=== PATIENT | female | born 1960 | race African-American/Black ===

== ENCOUNTER 2018-03-26 13:50 | Inpatient (IN) ==
[2018-03-30 10:28] VITALS: BP 158/78
== END 2018-03-30 10:40 | disposition home or self-care (01) | DRG 690 ==
LOC: N.ED 13:50 → N.EDINP 16:21 → SUATTDRO 16:21 → N.EDINP 18:25 → N.5E 18:42
PROVIDERS: ADMIT Internal Medicine; ATTEND Internal Medicine Nephrology

== ENCOUNTER 2020-06-13 10:14 | Observation (INO) ==
[2020-06-13 10:51] LABS: Basophils % 0.3 % (0.0-0.8); Eosinophils # 0.1 10*3/uL (0.0-0.87); Eosinophils % 1.3 % (0.00-10.9); Hematocrit 30.4 VOL% (35.7-47.0); Hemoglobin 9.3 GM/DL (12.0-16.0); Immature Granulocytes % 0.5 %; Immature Granulocytes Absolute 0.05 #; Lymphocytes # 1.4 10*3/uL (1.4-4.0); Lymphocytes % 15.2 % (21.3-54.2); Mean Corpuscular HGB Conc 30.6 GM/DL (32-36); Mean Corpuscular Volume 91.6 FL (87-102); Mean Platelet Volume 9.6 FL (9.6-12.0); Neutrophils % 77.7 % (38.7-73.9); Platelet Count 300 T/CUMM (130-400); Red Blood Count 3.32 MC/CUMM (3.8-5.5); Red Cell Distribution Width 13.7 % (9.3-17.3); White Blood Count 9.5 T/CUMM (4-12)
[2020-06-13 11:12] LABS: Albumin 3.2 G/DL (3.4-5.0); Bilirubin,Total 1.1 MG/DL (0.2-1.0); Calcium 9.3 MG/DL (8.5-10.1); Osmolality,Calculated 296.4 MOS/KG (273-304); Total Protein 7.2 G/DL (6.4-8.3)
[2020-06-13] MEDS ORDERED: SODIUM CHLORIDE 0.9% 1,000 ML IV STA (11:15)
[2020-06-13 12:06] LABS: Amorphous Crystals,Urine Few /HPF (Few); Bacteria,Urine Many /HPF (Few); Bilirubin,Urine Negative (Negative); Blood, Urine Negative (Negative); Glucose,Urine (UA) Negative (Negative); Ketones,Urine Negative (Negative); Nitrite,Urine Negative (Negative); Protein,Urine 30 MG/DL; RBC,Urine 2 /HPF (0-4); Squamous Epithelial Cell,Urine Occasional /HPF (0-10); Urine Appearance Slightly Hazy (Clear); Urine Color Yellow (Yellow); Urine Specific Gravity 1.011 (1.001-1.035); Urine Urobilinogen < 2.0 EU/DL (0.2-1.0); WBC,Urine 33 /HPF (0-6)
[2020-06-13 12:14] LABS: PT Patient Result 10.7 SECS (9.8-11.9); Partial Thromboplastin Time 28.8 SECS (23.9-33.8)
[2020-06-13] MEDS ORDERED: DEXTROSE 50% 25 GM/50 ML VIAL IV PRN (14:27)
[2020-06-13] MEDS ORDERED: GLUCAGON 1 MG VIAL IM PRN (14:27)
[2020-06-13] MEDS ORDERED: ONDANSETRON 4 MG/2 ML VIAL IV PRN (14:27)
[2020-06-13] MEDS ORDERED: SODIUM CHLORIDE 0.9% 1,000 ML IV SCH (14:30)
[2020-06-13] MEDS ORDERED: cefTRIAXone 1,000 MG in SYRINGE 1 EACH IV SCH (16:00)
[2020-06-13] MEDS: INSULIN LISPRO 100 UNIT/ML SUBCUT SCH ×2 (16:54→22:29)
[2020-06-13] MEDS ORDERED: cloNIDine 0.1 MG TABLET PO PRN (21:00)
[2020-06-13] MEDS ORDERED: BETHANECHOL 25 MG TABLET PO SCH (21:00)
[2020-06-13] MEDS: BIMATOPROST 0.01% OPH SOLN 2.5 ML BOTTLE LEFT EYE SCH (22:10)
[2020-06-13] MEDS: TIMOLOL 0.25% OPH SOLN 5 ML BOTTLE RIGHT EYE SCH (22:10)
[2020-06-13] MEDS: LATANOPROST 0.005% OPH SOLN 2.5 ML BOTTLE RIGHT EYE SCH (22:11)
[2020-06-13] MEDS: cefTRIAXone 1,000 MG in SYRINGE 1 EACH IV SCH (22:22)
[2020-06-13] MEDS: MEMANTINE 10 MG TABLET PO SCH (22:28)
[2020-06-13] MEDS: AMITRIPTYLINE 50 MG TABLET PO SCH (22:28)
[2020-06-13] MEDS: ASPIRIN EC 81 MG TABLET PO SCH (22:28)
[2020-06-13] MEDS: carvediloL 6.25 MG TABLET PO SCH (22:28)
[2020-06-13] MEDS: DIVALPROEX 250 MG TABLET PO SCH (22:28)
[2020-06-13] MEDS: ENOXAPARIN 30 MG/0.3 ML SYRINGE SUBCUT SCH (22:29)
[2020-06-13] MEDS ORDERED: diphenhydrAMINE CAP 25 MG CAPSULE PO PRN (23:00)
[2020-06-14] MEDS: ACETAMINOPHEN 325 MG TABLET PO PRN (00:25)
[2020-06-14 06:55] LABS: Basophils % 0.4 % (0.0-0.8); Eosinophils # 0.1 10*3/uL (0.0-0.87); Hematocrit 26.3 VOL% (35.7-47.0); Hemoglobin 8.1 GM/DL (12.0-16.0); Immature Granulocytes % 0.4 %; Immature Granulocytes Absolute 0.03 #; Lymphocytes # 2.1 10*3/uL (1.4-4.0); Lymphocytes % 29.4 % (21.3-54.2); Mean Corpuscular HGB Conc 30.8 GM/DL (32-36); Mean Corpuscular Volume 90.1 FL (87-102); Mean Platelet Volume 9.8 FL (9.6-12.0); Monocytes % 6.7 % (1.7-12.7); Neutrophils % 61.1 % (38.7-73.9); Platelet Count 269 T/CUMM (130-400); Red Blood Count 2.92 MC/CUMM (3.8-5.5); Red Cell Distribution Width 13.7 % (9.3-17.3)
[2020-06-14 07:22] LABS: Albumin 2.8 G/DL (3.4-5.0); Bilirubin,Total 1.2 MG/DL (0.2-1.0); Osmolality,Calculated 292.8 MOS/KG (273-304); Risk Ratio 2.92; Thyroid Stimulating Hormone 4.4 uIU/ml (0.358-3.74); Total Protein 6.3 G/DL (6.4-8.3)
[2020-06-14] MEDS: FUROSEMIDE 20 MG TABLET PO SCH (08:54)
[2020-06-14] MEDS: AMITRIPTYLINE 50 MG TABLET PO SCH ×2 (08:54→22:01)
[2020-06-14] MEDS: MEMANTINE 10 MG TABLET PO SCH ×2 (08:54→22:01)
[2020-06-14] MEDS: PANTOPRAZOLE 40 MG TABLET PO SCH (08:54)
[2020-06-14] MEDS: DIVALPROEX 250 MG TABLET PO SCH ×2 (08:54→22:01)
[2020-06-14] MEDS: OLMESARTAN 20 MG TABLET PO SCH (08:54)
[2020-06-14] MEDS: amLODIPine 10 MG TABLET PO SCH (08:54)
[2020-06-14] MEDS: INSULIN LISPRO 100 UNIT/ML SUBCUT SCH ×4 (08:55→21:17)
[2020-06-14] MEDS: carvediloL 6.25 MG TABLET PO SCH ×2 (08:55→22:01)
[2020-06-14] MEDS: CITALOPRAM 20 MG TABLET PO SCH (08:55)
[2020-06-14] MEDS ORDERED: CHOLECALCIFEROL 5,000 UNIT TABLET PO SCH (09:00)
[2020-06-14] MEDS: BETHANECHOL 25 MG PO SCH ×3 (09:01→22:18)
[2020-06-14] MEDS: TIMOLOL 0.25% OPH SOLN 5 ML BOTTLE RIGHT EYE SCH (09:01)
[2020-06-14] MEDS: DIGOXIN 0.125 MG TABLET PO SCH (13:15)
[2020-06-14] MEDS: ASPIRIN EC 81 MG TABLET PO SCH (22:01)
[2020-06-14] MEDS: ENOXAPARIN 30 MG/0.3 ML SYRINGE SUBCUT SCH (22:02)
[2020-06-14] MEDS: cefTRIAXone 1,000 MG in SYRINGE 1 EACH IV SCH (22:09)
[2020-06-15] MEDS: BIMATOPROST 0.01% OPH SOLN 2.5 ML BOTTLE LEFT EYE SCH ×2 (00:20→20:47)
[2020-06-15] MEDS: TIMOLOL 0.25% OPH SOLN 5 ML BOTTLE RIGHT EYE SCH ×3 (00:21→22:20)
[2020-06-15] MEDS: LATANOPROST 0.005% OPH SOLN 2.5 ML BOTTLE RIGHT EYE SCH ×2 (00:21→20:46)
[2020-06-15 05:44] LABS: Basophils % 0.5 % (0.0-0.8); Eosinophils # 0.1 10*3/uL (0.0-0.87); Eosinophils % 1.5 % (0.00-10.9); Hematocrit 25.7 VOL% (35.7-47.0); Hemoglobin 7.9 GM/DL (12.0-16.0); Immature Granulocytes % 0.5 %; Immature Granulocytes Absolute 0.04 #; Lymphocytes # 2.6 10*3/uL (1.4-4.0); Lymphocytes % 32.6 % (21.3-54.2); Mean Corpuscular HGB Conc 30.7 GM/DL (32-36); Mean Corpuscular Volume 91.1 FL (87-102); Mean Platelet Volume 9.7 FL (9.6-12.0); Monocytes % 6.4 % (1.7-12.7); Neutrophils % 58.5 % (38.7-73.9); Platelet Count 266 T/CUMM (130-400); Red Blood Count 2.82 MC/CUMM (3.8-5.5); Red Cell Distribution Width 13.7 % (9.3-17.3); White Blood Count 7.8 T/CUMM (4-12)
[2020-06-15 06:16] LABS: Albumin 2.6 G/DL (3.4-5.0); Bilirubin,Total 0.5 MG/DL (0.2-1.0); Calcium 8.5 MG/DL (8.5-10.1); Osmolality,Calculated 292.7 MOS/KG (273-304)
[2020-06-15] MEDS: INSULIN LISPRO 100 UNIT/ML SUBCUT SCH ×4 (10:51→20:43)
[2020-06-15] MEDS: amLODIPine 10 MG TABLET PO SCH (10:52)
[2020-06-15] MEDS: OLMESARTAN 20 MG TABLET PO SCH (10:52)
[2020-06-15] MEDS: MEMANTINE 10 MG TABLET PO SCH ×2 (10:52→20:38)
[2020-06-15] MEDS: PANTOPRAZOLE 40 MG TABLET PO SCH (10:52)
[2020-06-15] MEDS: FUROSEMIDE 20 MG TABLET PO SCH (10:52)
[2020-06-15] MEDS: CITALOPRAM 20 MG TABLET PO SCH (10:52)
[2020-06-15] MEDS: BETHANECHOL 25 MG PO SCH ×2 (10:53→18:04)
[2020-06-15] MEDS: AMITRIPTYLINE 50 MG TABLET PO SCH ×2 (10:53→20:38)
[2020-06-15] MEDS: carvediloL 6.25 MG TABLET PO SCH ×2 (10:53→20:38)
[2020-06-15] MEDS: DIVALPROEX 250 MG TABLET PO SCH ×2 (10:53→20:38)
[2020-06-15] MEDS: DIGOXIN 0.125 MG TABLET PO SCH (12:02)
[2020-06-15] MEDS: MEROPENEM 500 MG in SODIUM CHLORIDE 0.9% 100 ML IV SCH ×2 (13:00→20:51)
[2020-06-15] MEDS: BETHANECHOL 25 MG TABLET PO SCH ×2 (18:12→20:50)
[2020-06-15] MEDS: ASPIRIN EC 81 MG TABLET PO SCH (20:39)
[2020-06-15] MEDS: ACETAMINOPHEN 325 MG TABLET PO PRN (20:41)
[2020-06-15] MEDS: ENOXAPARIN 30 MG/0.3 ML SYRINGE SUBCUT SCH (20:42)
[2020-06-16] MEDS: MEROPENEM 500 MG in SODIUM CHLORIDE 0.9% 100 ML IV SCH (05:37)
[2020-06-16 06:14] LABS: Basophils % 0.6 % (0.0-0.8); Eosinophils # 0.2 10*3/uL (0.0-0.87); Eosinophils % 2.6 % (0.00-10.9); Hematocrit 25.9 VOL% (35.7-47.0); Hemoglobin 8.2 GM/DL (12.0-16.0); Immature Granulocytes % 0.6 %; Immature Granulocytes Absolute 0.04 #; Lymphocytes # 1.7 10*3/uL (1.4-4.0); Lymphocytes % 26.1 % (21.3-54.2); Mean Corpuscular HGB Conc 31.7 GM/DL (32-36); Mean Corpuscular Volume 90.9 FL (87-102); Mean Platelet Volume 10.4 FL (9.6-12.0); Monocytes % 8.9 % (1.7-12.7); Neutrophils % 61.2 % (38.7-73.9); Platelet Count 271 T/CUMM (130-400); Red Blood Count 2.85 MC/CUMM (3.8-5.5); Red Cell Distribution Width 13.8 % (9.3-17.3); White Blood Count 6.4 T/CUMM (4-12)
[2020-06-16 08:14] LABS: Alkaline Phosphatase 102 U/L (45-117); Aspartate Amino Transferase 15 U/L (0-37); Calcium 8.5 MG/DL (8.5-10.1)
[2020-06-16 08:15] LABS: Alanine Aminotransferase 17 U/L (13-56); Albumin 2.5 G/DL (3.4-5.0); Bilirubin,Total < 0.39 MG/DL (0.2-1.0); Blood Urea Nitrogen 21 MG/DL (7-18); Estimated Glom Filtration Rate 29 ML/MIN; Glucose 123 MG/DL (74-106); Total Protein 6.2 G/DL (6.4-8.3)
[2020-06-16] MEDS: INSULIN LISPRO 100 UNIT/ML SUBCUT SCH ×2 (08:17→12:00)
[2020-06-16] MEDS: AMITRIPTYLINE 50 MG TABLET PO SCH (09:23)
[2020-06-16] MEDS: amLODIPine 10 MG TABLET PO SCH (09:23)
[2020-06-16] MEDS: OLMESARTAN 20 MG TABLET PO SCH (09:23)
[2020-06-16] MEDS: PANTOPRAZOLE 40 MG TABLET PO SCH (09:24)
[2020-06-16] MEDS: MEMANTINE 10 MG TABLET PO SCH (09:24)
[2020-06-16] MEDS: FUROSEMIDE 20 MG TABLET PO SCH (09:24)
[2020-06-16] MEDS: TIMOLOL 0.25% OPH SOLN 5 ML BOTTLE RIGHT EYE SCH (09:24)
[2020-06-16] MEDS: carvediloL 6.25 MG TABLET PO SCH (09:24)
[2020-06-16] MEDS: DIVALPROEX 250 MG TABLET PO SCH (09:24)
[2020-06-16] MEDS: BETHANECHOL 25 MG TABLET PO SCH (09:24)
[2020-06-16] MEDS: CITALOPRAM 20 MG TABLET PO SCH (09:25)
[2020-06-16] MEDS ORDERED: ERTAPENEM 1,000 MG in SODIUM CHLORIDE 0.9% 100 ML IV SCH (10:00)
[2020-06-16] MEDS ORDERED: ERTAPENEM 500 MG in SODIUM CHLORIDE 0.9% 100 ML IV SCH (11:00)
[2020-06-16 11:53] VITALS: BP 143/50
[2020-06-16] MEDS: DIGOXIN 0.125 MG TABLET PO SCH (12:11)
[2020-06-19] MEDS ORDERED: CYANOCOBALAMIN 1000 MCG/1 ML VIAL IM SCH (09:00)
== END 2020-06-16 15:23 | disposition home health service (06) ==
LOC: N.ED 10:14 → N.EDINP 10:14 → N.3E 20:53
PROVIDERS: ADMIT Family Medicine; ATTEND Family Medicine

== ENCOUNTER 2020-08-10 10:02 | Observation (INO) ==
[2020-08-10 10:25] LABS: Basophils # 0.1 10*3/uL (0.0-0.2); Eosinophils # 0.2 10*3/uL (0.0-0.87); Hematocrit 24.9 VOL% (35.7-47.0); Hemoglobin 7.8 GM/DL (12.0-16.0); Immature Granulocytes % 1.5 %; Immature Granulocytes Absolute 0.11 #; Lymphocytes # 1.6 10*3/uL (1.4-4.0); Lymphocytes % 21.5 % (21.3-54.2); Mean Corpuscular HGB Conc 31.3 GM/DL (32-36); Mean Corpuscular Volume 89.9 FL (87-102); Mean Platelet Volume 9.7 FL (9.6-12.0); Monocytes % 7.3 % (1.7-12.7); Neutrophils % 65.7 % (38.7-73.9); Platelet Count 292 T/CUMM (130-400); Red Blood Count 2.77 MC/CUMM (3.8-5.5); Red Cell Distribution Width 15.1 % (9.3-17.3); White Blood Count 7.3 T/CUMM (4-12)
[2020-08-10 10:37] LABS: PT Patient Result 10.3 SECS (9.8-11.9); Partial Thromboplastin Time 28.9 SECS (23.9-33.8)
[2020-08-10 11:42] LABS: Albumin 2.7 G/DL (3.4-5.0); Bilirubin,Total 0.4 MG/DL (0.2-1.0); Calcium 8.2 MG/DL (8.5-10.1); Osmolality,Calculated 290.1 MOS/KG (273-304); Total Protein 6.1 G/DL (6.4-8.3)
[2020-08-10] MEDS ORDERED: ACETAMINOPHEN 325 MG TABLET PO PRN (12:00)
[2020-08-10] MEDS ORDERED: DEXTROSE 50% 25 GM/50 ML VIAL IV PRN (12:00)
[2020-08-10] MEDS ORDERED: GLUCAGON 1 MG VIAL IM PRN (12:00)
[2020-08-10 12:20] LABS: Bilirubin,Urine Negative (Negative); Blood, Urine Negative (Negative); Glucose,Urine (UA) Negative (Negative); Ketones,Urine Negative (Negative); Nitrite,Urine Negative (Negative); Protein,Urine Negative; RBC,Urine 2 /HPF (0-4); Urine Appearance CLEAR (Clear); Urine Color Yellow (Yellow); Urine Urobilinogen < 2.0 EU/DL (0.2-1.0); WBC,Urine 39 /HPF (0-6)
[2020-08-10] MEDS ORDERED: MECLIZINE 25 MG TABLET PO PRN (13:40)
[2020-08-10] MEDS ORDERED: BETHANECHOL 25 MG TABLET PO SCH (15:00)
[2020-08-10] MEDS: cefTRIAXone 1,000 MG in SYRINGE 1 EACH IV SCH (16:10)
[2020-08-10] MEDS: INSULIN LISPRO 100 UNIT/ML SUBCUT SCH ×2 (16:10→20:32)
[2020-08-10] MEDS ORDERED: diphenhydrAMINE CAP 25 MG CAPSULE PO PRN (19:39)
[2020-08-10] MEDS: cloNIDine 0.1 MG TABLET PO SCH (20:28)
[2020-08-10] MEDS: ASPIRIN EC 81 MG TABLET PO SCH (20:28)
[2020-08-10] MEDS: MEMANTINE 10 MG TABLET PO SCH (20:28)
[2020-08-10] MEDS: carvediloL 6.25 MG TABLET PO SCH (20:29)
[2020-08-10] MEDS: AMITRIPTYLINE 25 MG TABLET PO SCH (20:29)
[2020-08-10] MEDS: DIVALPROEX 250 MG TABLET PO SCH (20:29)
[2020-08-10] MEDS: DONEPEZIL 10 MG TABLET PO SCH (20:30)
[2020-08-10] MEDS: TIMOLOL 0.25% OPH SOLN 5 ML BOTTLE RIGHT EYE SCH (20:31)
[2020-08-10] MEDS: LATANOPROST 0.005% OPH SOLN 2.5 ML BOTTLE RIGHT EYE SCH (20:31)
[2020-08-10] MEDS: BETHANECHOL 25 MG TABLET PO SCH (20:31)
[2020-08-10] MEDS: BRINZOLAMIDE BRIMONIDINE LEFT EYE SCH (20:33)
[2020-08-10] MEDS ORDERED: BIMATOPROST 0.01% OPH SOLN 2.5 ML BOTTLE LEFT EYE SCH (21:00)
[2020-08-11 05:52] LABS: Basophils # 0.1 10*3/uL (0.0-0.2); Basophils % 0.8 % (0.0-0.8); Eosinophils # 0.2 10*3/uL (0.0-0.87); Eosinophils % 3.6 % (0.00-10.9); Hematocrit 23.8 VOL% (35.7-47.0); Hemoglobin 7.5 GM/DL (12.0-16.0); Immature Granulocytes % 1.2 %; Immature Granulocytes Absolute 0.08 #; Lymphocytes # 1.7 10*3/uL (1.4-4.0); Mean Corpuscular HGB Conc 31.5 GM/DL (32-36); Mean Corpuscular Volume 89.8 FL (87-102); Monocytes % 7.1 % (1.7-12.7); Neutrophils % 62.3 % (38.7-73.9); Platelet Count 295 T/CUMM (130-400); Red Blood Count 2.65 MC/CUMM (3.8-5.5); Red Cell Distribution Width 15.3 % (9.3-17.3); White Blood Count 6.6 T/CUMM (4-12)
[2020-08-11 06:24] LABS: % Iron Saturation 29.5 % (18-50)
[2020-08-11 06:37] LABS: Calcium 8.5 MG/DL (8.5-10.1); Risk Ratio 2.78; Thyroid Stimulating Hormone 8.31 uIU/ml (0.358-3.74); VLDL CHOLESTEROL 40.2 MG/DL
[2020-08-11 06:55] LABS: Folate 9.3 NG/ML (5.4-24.0)
[2020-08-11] MEDS: DIVALPROEX 250 MG TABLET PO SCH ×2 (09:13→21:01)
[2020-08-11] MEDS: amLODIPine 10 MG TABLET PO SCH (09:13)
[2020-08-11] MEDS: carvediloL 6.25 MG TABLET PO SCH ×2 (09:13→21:01)
[2020-08-11] MEDS: MEMANTINE 10 MG TABLET PO SCH ×2 (09:13→21:01)
[2020-08-11] MEDS: cloNIDine 0.1 MG TABLET PO SCH ×2 (09:13→21:00)
[2020-08-11] MEDS: PANTOPRAZOLE 40 MG TABLET PO SCH (09:14)
[2020-08-11] MEDS: DIGOXIN 0.125 MG TABLET PO SCH (09:14)
[2020-08-11] MEDS: CITALOPRAM 20 MG TABLET PO SCH (09:14)
[2020-08-11] MEDS: AMITRIPTYLINE 25 MG TABLET PO SCH ×2 (09:14→21:01)
[2020-08-11] MEDS: POLYETHYLENE GLYCOL POWDER 17 GM PACK PO SCH ×2 (09:14→09:20)
[2020-08-11] MEDS: TIMOLOL 0.25% OPH SOLN 5 ML BOTTLE RIGHT EYE SCH ×2 (09:15→21:01)
[2020-08-11] MEDS: INSULIN LISPRO 100 UNIT/ML SUBCUT SCH ×4 (09:15→21:43)
[2020-08-11] MEDS: BETHANECHOL 25 MG TABLET PO SCH ×3 (09:16→21:02)
[2020-08-11] MEDS: BRINZOLAMIDE BRIMONIDINE LEFT EYE SCH ×2 (09:16→21:12)
[2020-08-11] MEDS: MULTIVITAMIN (CENTRUM) TABLET PO SCH (09:25)
[2020-08-11] MEDS ORDERED: SODIUM CHLORIDE 0.9% 1,000 ML IV PRN (10:29)
[2020-08-11] MEDS: cefTRIAXone 1,000 MG in SYRINGE 1 EACH IV SCH (16:09)
[2020-08-11 20:21] LABS: Hematocrit 30.6 VOL% (35.7-47.0)
[2020-08-11 20:27] LABS: Hemoglobin 9.7 GM/DL (12.0-16.0)
[2020-08-11] MEDS: ASPIRIN EC 81 MG TABLET PO SCH (21:00)
[2020-08-11] MEDS: DONEPEZIL 10 MG TABLET PO SCH (21:01)
[2020-08-11] MEDS: LATANOPROST 0.005% OPH SOLN 2.5 ML BOTTLE RIGHT EYE SCH (21:01)
[2020-08-12 06:56] LABS: Calcium 8.2 MG/DL (8.5-10.1); Osmolality,Calculated 287.1 MOS/KG (273-304)
[2020-08-12] MEDS: INSULIN LISPRO 100 UNIT/ML SUBCUT SCH ×2 (08:24→12:22)
[2020-08-12 08:36] LABS: Basophils # 0.1 10*3/uL (0.0-0.2); Basophils % 0.5 % (0.0-0.8); Eosinophils # 0.2 10*3/uL (0.0-0.87); Eosinophils % 2.1 % (0.00-10.9); Hematocrit 28.4 VOL% (35.7-47.0); Hemoglobin 9.2 GM/DL (12.0-16.0); Immature Granulocytes % 1.2 %; Immature Granulocytes Absolute 0.11 #; Lymphocytes # 2.4 10*3/uL (1.4-4.0); Lymphocytes % 24.9 % (21.3-54.2); Mean Corpuscular HGB Conc 32.4 GM/DL (32-36); Mean Corpuscular Volume 89.9 FL (87-102); Mean Platelet Volume 9.8 FL (9.6-12.0); Monocytes % 6.2 % (1.7-12.7); Neutrophils % 65.1 % (38.7-73.9); Platelet Count 295 T/CUMM (130-400); Red Blood Count 3.16 MC/CUMM (3.8-5.5); Red Cell Distribution Width 15.6 % (9.3-17.3); White Blood Count 9.5 T/CUMM (4-12)
[2020-08-12] MEDS: cloNIDine 0.1 MG TABLET PO SCH (09:47)
[2020-08-12] MEDS: amLODIPine 10 MG TABLET PO SCH (09:47)
[2020-08-12] MEDS: MULTIVITAMIN (CENTRUM) TABLET PO SCH (09:47)
[2020-08-12] MEDS: carvediloL 6.25 MG TABLET PO SCH (09:48)
[2020-08-12] MEDS: DIGOXIN 0.125 MG TABLET PO SCH (09:48)
[2020-08-12] MEDS: CITALOPRAM 20 MG TABLET PO SCH (09:48)
[2020-08-12] MEDS: PANTOPRAZOLE 40 MG TABLET PO SCH (09:48)
[2020-08-12] MEDS: AMITRIPTYLINE 25 MG TABLET PO SCH (09:48)
[2020-08-12] MEDS: TIMOLOL 0.25% OPH SOLN 5 ML BOTTLE RIGHT EYE SCH (09:49)
[2020-08-12] MEDS: BRINZOLAMIDE BRIMONIDINE LEFT EYE SCH (09:50)
[2020-08-12] MEDS: DIVALPROEX 250 MG TABLET PO SCH (09:50)
[2020-08-12] MEDS: POLYETHYLENE GLYCOL POWDER 17 GM PACK PO SCH (09:51)
[2020-08-12] MEDS ORDERED: SODIUM POLYSTYRENE SULFATE 15 GM/60 ML BOTTLE PO STA (10:41)
[2020-08-12 11:32] VITALS: BP 138/47
[2020-08-12] MEDS: MEMANTINE 10 MG TABLET PO SCH (12:35)
[2020-08-12] MEDS: BETHANECHOL 25 MG TABLET PO SCH (12:35)
[2020-08-16] MEDS ORDERED: ERGOCALCIFEROL 50,000 UNIT CAPSULE PO SCH (13:40)
== END 2020-08-12 13:04 | disposition home health service (06) ==
LOC: EDUNIT# → EDBD → N.ED 10:02 → N.EDINP 10:02 → N.3E 14:25
PROVIDERS: ADMIT Internal Medicine; ATTEND Internal Medicine

== ENCOUNTER 2020-10-11 15:17 | Observation (INO) ==
[2020-10-11 15:56] LABS: Basophils % 0.2 % (0.0-0.8); Eosinophils % 0.3 % (0.00-10.9); Hematocrit 28.1 VOL% (35.7-47.0); Hemoglobin 8.6 GM/DL (12.0-16.0); Immature Granulocytes % 1.1 %; Immature Granulocytes Absolute 0.11 #; Lymphocytes # 0.9 10*3/uL (1.4-4.0); Lymphocytes % 9.1 % (21.3-54.2); Mean Corpuscular HGB Conc 30.6 GM/DL (32-36); Mean Corpuscular Volume 94.3 FL (87-102); Mean Platelet Volume 9.4 FL (9.6-12.0); Monocytes % 5.9 % (1.7-12.7); Neutrophils % 83.4 % (38.7-73.9); Platelet Count 258 T/CUMM (130-400); Red Blood Count 2.98 MC/CUMM (3.8-5.5); Red Cell Distribution Width 15.5 % (9.3-17.3); White Blood Count 9.9 T/CUMM (4-12)
[2020-10-11] MEDS ORDERED: FUROSEMIDE 20 MG/2 ML VIAL IV STA (16:22)
[2020-10-11 16:28] LABS: Alanine Aminotransferase 11 U/L (13-56); Albumin 2.5 G/DL (3.4-5.0); Alkaline Phosphatase 129 U/L (45-117); Aspartate Amino Transferase 4 U/L (0-37); Bilirubin,Total < 0.39 MG/DL (0.2-1.0); Blood Urea Nitrogen 27 MG/DL (7-18); Carbon Dioxide 27 MMOL/L (21-32); Estimated Glom Filtration Rate 36 ML/MIN; Glucose 292 MG/DL (74-106); Osmolality,Calculated 296.3 MOS/KG (273-304); Potassium 5.5 MMOL/L (3.5-5.1); Sodium 141 MMOL/L (136-145); Total Protein 6.4 G/DL (6.4-8.3)
[2020-10-11] MEDS ORDERED: FUROSEMIDE 40 MG/4 ML VIAL ONE (17:00)
[2020-10-11] MEDS ORDERED: DEXTROSE 50% 25 GM/50 ML VIAL IV PRN (20:22)
[2020-10-11] MEDS ORDERED: GLUCAGON 1 MG VIAL IM PRN (20:22)
[2020-10-11] MEDS ORDERED: ONDANSETRON 4 MG/2 ML VIAL IV PRN (20:35)
[2020-10-11] MEDS ORDERED: diphenhydrAMINE CAP 25 MG CAPSULE PO PRN (20:35)
[2020-10-11] MEDS ORDERED: NICOTINE 21 MG/24 HR PATCH TRANSDERM PRN (20:35)
[2020-10-11] MEDS ORDERED: ALBUTEROL/IPRATROPIUM 3 ML NEB RESP TX PRN (20:35)
[2020-10-11] MEDS ORDERED: FUROSEMIDE 40 MG/4 ML VIAL IV STA (20:35)
[2020-10-11] MEDS ORDERED: guaiFENesin/DM ER 600-30 MG TABLET PO PRN (20:35)
[2020-10-11] MEDS ORDERED: hydrALAZINE 20 MG/1 ML VIAL IV PRN (20:35)
[2020-10-11 21:08] LABS: Risk Ratio 1.73; VLDL CHOLESTEROL 15.6 MG/DL
[2020-10-11] MEDS: ENOXAPARIN 40 MG/0.4 ML SYRINGE SUBCUT SCH (22:49)
[2020-10-12] MEDS: INSULIN REGULAR 100 UNIT/ML SUBCUT SCH ×3 (00:33→11:54)
[2020-10-12] MEDS: ZALEPLON 5 MG CAPSULE PO PRN ×2 (01:02→21:08)
[2020-10-12 01:47] LABS: Bacteria,Urine Few /HPF (Few); Bilirubin,Urine Negative (Negative); Blood, Urine Small mg/dL (Negative); Glucose,Urine (UA) 50 mg/dL (Negative); Ketones,Urine Negative (Negative); Mucus,Urine Occasional /LPF (Occasional); Nitrite,Urine Negative (Negative); Protein,Urine 30 MG/DL; RBC,Urine 17 /HPF (0-4); Squamous Epithelial Cell,Urine Occasional /HPF (0-10); Urine Appearance Slightly Hazy (Clear); Urine Color Yellow (Yellow); Urine Specific Gravity 1.008 (1.001-1.035); Urine Urobilinogen < 2.0 EU/DL (0.2-1.0); WBC,Urine 24 /HPF (0-6)
[2020-10-12 07:59] LABS: Albumin 2.6 G/DL (3.4-5.0); Bilirubin,Total 0.6 MG/DL (0.2-1.0); Calcium 8.8 MG/DL (8.5-10.1); Potassium 4.4 MMOL/L (3.5-5.1); Total Protein 6.7 G/DL (6.4-8.3)
[2020-10-12] MEDS: FUROSEMIDE 20 MG/2 ML VIAL IV SCH ×2 (08:37→16:05)
[2020-10-12] MEDS ORDERED: NON-FORMULARY MEDICATION (Nebivolol [Bystolic] 20 mg Tablet) PO SCH (12:45)
[2020-10-12] MEDS: cloNIDine 0.1 MG TABLET PO SCH ×2 (16:04→21:09)
[2020-10-12] MEDS: BETHANECHOL 25 MG TABLET PO SCH ×2 (16:05→21:08)
[2020-10-12] MEDS: NEBIVOLOL 10 MG TABLET PO SCH (16:05)
[2020-10-12] MEDS: COLESTIPOL 1 GM TABLET PO SCH (17:47)
[2020-10-12] MEDS: INSULIN LISPRO 100 UNIT/ML SUBCUT SCH ×2 (18:01→18:02)
[2020-10-12] MEDS ORDERED: DONEPEZIL 10 MG TABLET PO SCH (21:00)
[2020-10-12] MEDS ORDERED: ASPIRIN EC 81 MG TABLET PO SCH (21:00)
[2020-10-12] MEDS ORDERED: ATORVASTATIN 40 MG TABLET PO SCH (21:00)
[2020-10-12] MEDS: BRIMONIDINE/TIMOLOL OPH SOLN 5 ML BOTTLE BOTH EYES SCH (21:08)
[2020-10-12] MEDS: AMITRIPTYLINE 50 MG TABLET PO SCH (21:08)
[2020-10-12] MEDS: METHENAMINE HIPPURATE 1 GM TABLET PO SCH (21:08)
[2020-10-12] MEDS: MEMANTINE 10 MG TABLET PO SCH (21:08)
[2020-10-12] MEDS: DIVALPROEX 250 MG TABLET PO SCH (21:08)
[2020-10-12] MEDS: LOTEMAX BOTH EYES SCH (21:09)
[2020-10-12] MEDS: ENOXAPARIN 40 MG/0.4 ML SYRINGE SUBCUT SCH (21:09)
[2020-10-13] MEDS: INSULIN LISPRO 100 UNIT/ML SUBCUT SCH ×5 (00:19→12:31)
[2020-10-13] MEDS: COLESTIPOL 1 GM TABLET PO SCH (06:26)
[2020-10-13] MEDS: BRIMONIDINE/TIMOLOL OPH SOLN 5 ML BOTTLE BOTH EYES SCH (08:21)
[2020-10-13] MEDS: FUROSEMIDE 20 MG/2 ML VIAL IV SCH (08:23)
[2020-10-13] MEDS ORDERED: FERROUS SULFATE 325 MG TABLET PO SCH (09:00)
[2020-10-13] MEDS ORDERED: NEBIVOLOL 10 MG TABLET PO SCH (09:00)
[2020-10-13] MEDS ORDERED: amLODIPine 2.5 MG TABLET PO SCH (09:00)
[2020-10-13] MEDS ORDERED: INSULIN GLARGINE 100 UNIT/ML SUBCUT SCH (09:00)
[2020-10-13] MEDS ORDERED: PANTOPRAZOLE 40 MG TABLET PO SCH (09:00)
[2020-10-13] MEDS ORDERED: CITALOPRAM 20 MG TABLET PO SCH (09:00)
[2020-10-13] MEDS: AMITRIPTYLINE 50 MG TABLET PO SCH (09:20)
[2020-10-13] MEDS: DIVALPROEX 250 MG TABLET PO SCH (09:20)
[2020-10-13] MEDS: NEBIVOLOL 10 MG TABLET PO SCH (09:20)
[2020-10-13] MEDS: cloNIDine 0.1 MG TABLET PO SCH (09:20)
[2020-10-13] MEDS: METHENAMINE HIPPURATE 1 GM TABLET PO SCH (09:20)
[2020-10-13] MEDS: BETHANECHOL 25 MG TABLET PO SCH (09:21)
[2020-10-13] MEDS: LOTEMAX BOTH EYES SCH (09:21)
[2020-10-13] MEDS: MEMANTINE 10 MG TABLET PO SCH (09:21)
[2020-10-13] MEDS ORDERED: propofoL 200 MG/20 ML VIAL IV ONE (09:59)
[2020-10-13] MEDS ORDERED: LIDOCAINE 2% 5 ML VIAL ONE (09:59)
[2020-10-13] MEDS ORDERED: KETAMINE 500 MG/10 ML VIAL ONE (10:00)
[2020-10-13] MEDS ORDERED: fentaNYL 100 MCG/2 ML VIAL ONE (10:00)
[2020-10-13] MEDS ORDERED: LIDOCAINE 1% 20 ML VIAL ONE (10:01)
[2020-10-13 11:42] VITALS: BP 130/52
[2020-10-18] MEDS ORDERED: ERGOCALCIFEROL 50,000 UNIT CAPSULE PO SCH (09:00)
[2020-10-23] MEDS ORDERED: CYANOCOBALAMIN 1000 MCG/1 ML VIAL IM SCH (09:00)
== END 2020-10-13 15:18 | disposition home or self-care (01) ==
LOC: N.ED 15:17 → N.EDINP 15:17 → N.5E 23:16
PROVIDERS: ADMIT Internal Medicine; ATTEND Internal Medicine

== ENCOUNTER 2020-10-19 09:23 | Inpatient (IN) ==
[2020-10-19 10:15] LABS: Basophils # 0.1 10*3/uL (0.0-0.2); Basophils % 0.3 % (0.0-0.8); Eosinophils # 0.1 10*3/uL (0.0-0.87); Eosinophils % 0.4 % (0.00-10.9); Hematocrit 22.6 VOL% (35.7-47.0); Hemoglobin 6.6 GM/DL (12.0-16.0); Immature Granulocytes % 2.1 %; Immature Granulocytes Absolute 0.42 #; Lymphocytes # 2.1 10*3/uL (1.4-4.0); Lymphocytes % 10.3 % (21.3-54.2); Mean Corpuscular HGB Conc 29.2 GM/DL (32-36); Mean Platelet Volume 9.4 FL (9.6-12.0); Monocytes % 4.6 % (1.7-12.7); NRBC # 0.13 10*3/uL; Neutrophils % 82.3 % (38.7-73.9); Platelet Count 370 T/CUMM (130-400); Red Blood Count 2.33 MC/CUMM (3.8-5.5); White Blood Count 19.9 T/CUMM (4-12)
[2020-10-19 10:25] LABS: Calcium 8.2 MG/DL (8.5-10.1); Osmolality,Calculated 286.4 MOS/KG (273-304); Potassium 5.2 MMOL/L (3.5-5.1)
[2020-10-19 10:34] LABS: Band Neutrophils 3 % (0-10); Hypochromasia 2+; Lymphocytes 14 % (20-55); Microcytosis 1+; Nucleated Red Blood Cells 1 (0-5); Platelet Estimate Adequate; Segmented Neutrophils 82 % (50-85); Total Cells Counted 100
[2020-10-19] MEDS ORDERED: SODIUM CHLORIDE 0.9% 1,000 ML IV PRN (10:37)
[2020-10-19] MEDS ORDERED: GLUCAGON 1 MG VIAL IM PRN (13:09)
[2020-10-19] MEDS ORDERED: DOCUSATE SODIUM 100 MG CAPSULE PO PRN (13:09)
[2020-10-19] MEDS ORDERED: DEXTROSE 50% 25 GM/50 ML VIAL IV PRN (13:09)
[2020-10-19] MEDS ORDERED: SODIUM CHLORIDE 0.9% 100 ML IV ONE (15:30)
[2020-10-19] MEDS ORDERED: PIPERACILLIN/TAZOBACTAM 3,375 MG VIAL IV ONE (15:30)
[2020-10-19] MEDS: PIPERACILLIN/TAZOBACTAM 3,375 MG in SODIUM CHLORIDE 0.9% 100 ML IV SCH (15:41)
[2020-10-19] MEDS: INSULIN REGULAR 100 UNIT/ML SUBCUT SCH ×2 (16:56→22:00)
[2020-10-19] MEDS: ACETAMINOPHEN 325 MG TABLET PO PRN ×2 (16:56→21:40)
[2020-10-19 18:12] LABS: % Iron Saturation 3.2 % (18-50)
[2020-10-19 18:18] LABS: Folate 8.9 NG/ML (5.38-24.0)
[2020-10-19] MEDS ORDERED: IBUPROFEN 800 MG TABLET PO PRN (18:21)
[2020-10-19] MEDS ORDERED: VANCOMYCIN INJ 2,000 MG in SODIUM CHLORIDE 0.9% 500 ML IV ONE (20:00)
[2020-10-19] MEDS: DONEPEZIL 10 MG TABLET PO SCH (21:40)
[2020-10-19] MEDS: carvediloL 6.25 MG TABLET PO SCH (21:40)
[2020-10-19] MEDS: DIVALPROEX 250 MG TABLET PO SCH (21:41)
[2020-10-19] MEDS: MEMANTINE 10 MG TABLET PO SCH (21:41)
[2020-10-20] MEDS: PIPERACILLIN/TAZOBACTAM 3,375 MG in SODIUM CHLORIDE 0.9% 100 ML IV SCH ×4 (00:13→23:34)
[2020-10-20 06:03] LABS: Basophils # 0.1 10*3/uL (0.0-0.2); Basophils % 0.3 % (0.0-0.8); Eosinophils # 0.1 10*3/uL (0.0-0.87); Eosinophils % 0.6 % (0.00-10.9); Hematocrit 27.6 VOL% (35.7-47.0); Hemoglobin 8.4 GM/DL (12.0-16.0); Immature Granulocytes % 2.4 %; Immature Granulocytes Absolute 0.44 #; Lymphocytes % 10.6 % (21.3-54.2); Mean Corpuscular HGB Conc 30.4 GM/DL (32-36); Mean Corpuscular Volume 95.2 FL (87-102); Mean Platelet Volume 9.5 FL (9.6-12.0); Monocytes % 4.9 % (1.7-12.7); NRBC # 0.03 10*3/uL; Neutrophils % 81.2 % (38.7-73.9); Platelet Count 220 T/CUMM (130-400); White Blood Count 18.5 T/CUMM (4-12)
[2020-10-20 06:17] LABS: Osmolality,Calculated 290.5 MOS/KG (273-304); Potassium 4.6 MMOL/L (3.5-5.1)
[2020-10-20 06:54] LABS: Anisocytosis 1+; Band Neutrophils 24 % (0-10); Eosinophils 1 % (0-10); Lymphocytes 13 % (20-55); Metamyelocytes 3 %; Nucleated Red Blood Cells 1 (0-5); Platelet Estimate Normal; Segmented Neutrophils 53 % (50-85); Total Cells Counted 100
[2020-10-20] MEDS ORDERED: BUDESONIDE 0.5 MG/2 ML NEB RESP TX PRN (07:23)
[2020-10-20] MEDS ORDERED: ALBUTEROL 2.5 MG/3 ML NEB RESP TX PRN (07:23)
[2020-10-20] MEDS: ONDANSETRON 4 MG/2 ML VIAL IV PRN (07:40)
[2020-10-20] MEDS: INSULIN REGULAR 100 UNIT/ML SUBCUT SCH ×4 (08:09→20:31)
[2020-10-20] MEDS ORDERED: ASPIRIN 325 MG TABLET PO SCH (09:00)
[2020-10-20] MEDS ORDERED: IRON SUCROSE 100 MG/5 ML VIAL IV SCH (09:00)
[2020-10-20] MEDS: INSULIN LISPRO 100 UNIT/ML SUBCUT SCH ×2 (09:17→14:19)
[2020-10-20] MEDS: DORZOLAMIDE 2% OPH SOLN 10 ML BOTTLE BOTH EYES SCH ×2 (09:19→20:38)
[2020-10-20] MEDS: BRIMONIDINE/TIMOLOL OPH SOLN 5 ML BOTTLE BOTH EYES SCH ×2 (09:20→20:37)
[2020-10-20] MEDS: IRON SUCROSE 300 MG in SODIUM CHLORIDE 0.9% 100 ML IV SCH (15:43)
[2020-10-20] MEDS: DIGOXIN 0.125 MG TABLET PO SCH (15:47)
[2020-10-20] MEDS: carvediloL 6.25 MG TABLET PO SCH ×2 (15:47→20:33)
[2020-10-20] MEDS: PANTOPRAZOLE 40 MG TABLET PO SCH (15:47)
[2020-10-20] MEDS: FERROUS SULFATE 325 MG TABLET PO SCH (15:47)
[2020-10-20] MEDS: ASPIRIN EC 81 MG TABLET PO SCH (15:47)
[2020-10-20] MEDS: MEMANTINE 10 MG TABLET PO SCH ×2 (15:47→20:33)
[2020-10-20] MEDS: DIVALPROEX 250 MG TABLET PO SCH ×2 (15:47→20:33)
[2020-10-20] MEDS: cloNIDine 0.1 MG TABLET PO SCH ×2 (15:47→20:33)
[2020-10-20] MEDS: MULTIVITAMIN (CENTRUM) TABLET PO SCH (15:47)
[2020-10-20] MEDS: amLODIPine 10 MG TABLET PO SCH (15:47)
[2020-10-20] MEDS ORDERED: VANCOMYCIN INJ 1,250 MG in SODIUM CHLORIDE 0.9% 250 ML IV PRN (20:00)
[2020-10-20] MEDS: INSULIN GLARGINE 100 UNIT/ML SUBCUT SCH (20:31)
[2020-10-20] MEDS: DONEPEZIL 10 MG TABLET PO SCH (20:33)
[2020-10-20] MEDS: CITALOPRAM 20 MG TABLET PO SCH (20:33)
[2020-10-20] MEDS ORDERED: INSULIN GLARGINE 100 UNIT/ML SUBCUT SCH (21:00)
[2020-10-21 06:04] LABS: Basophils % 0.1 % (0.0-0.8); Eosinophils # 0.2 10*3/uL (0.0-0.87); Hematocrit 25.8 VOL% (35.7-47.0); Hemoglobin 8.3 GM/DL (12.0-16.0); Immature Granulocytes % 1.6 %; Immature Granulocytes Absolute 0.23 #; Lymphocytes # 0.8 10*3/uL (1.4-4.0); Lymphocytes % 5.7 % (21.3-54.2); Mean Corpuscular HGB Conc 32.2 GM/DL (32-36); Mean Corpuscular Volume 91.2 FL (87-102); Mean Platelet Volume 10.2 FL (9.6-12.0); Monocytes % 3.9 % (1.7-12.7); NRBC # 0.03 10*3/uL; Neutrophils % 87.7 % (38.7-73.9); Platelet Count 223 T/CUMM (130-400); Red Blood Count 2.83 MC/CUMM (3.8-5.5); Red Cell Distribution Width 14.9 % (9.3-17.3); White Blood Count 14.5 T/CUMM (4-12)
[2020-10-21] MEDS: PIPERACILLIN/TAZOBACTAM 3,375 MG in SODIUM CHLORIDE 0.9% 100 ML IV SCH ×2 (06:50→16:19)
[2020-10-21 07:45] LABS: Calcium 8.1 MG/DL (8.5-10.1); Osmolality,Calculated 289.7 MOS/KG (273-304); Potassium 5.5 MMOL/L (3.5-5.1)
[2020-10-21 08:02] LABS: Risk Ratio 5.43; VLDL CHOLESTEROL 36.4 MG/DL
[2020-10-21 08:37] LABS: Anisocytosis 1+; Band Neutrophils 3 % (0-10); Lymphocytes 6 % (20-55); Macrocytosis 1+; Metamyelocytes 2 %; Platelet Estimate Normal; Segmented Neutrophils 84 % (50-85); Total Cells Counted 100
[2020-10-21] MEDS ORDERED: SODIUM POLYSTYRENE SULFATE 15 GM/60 ML BOTTLE PO STA (08:56)
[2020-10-21] MEDS ORDERED: BUPIVACAINE 0.5% 50 ML VIAL ONE (09:04)
[2020-10-21] MEDS ORDERED: EPINEPHrine 1 MG/ML VIAL ONE (09:04)
[2020-10-21] MEDS ORDERED: fentaNYL 100 MCG/2 ML VIAL ONE (09:06)
[2020-10-21] MEDS: INSULIN REGULAR 100 UNIT/ML SUBCUT SCH ×4 (09:31→21:25)
[2020-10-21] MEDS: ASPIRIN EC 81 MG TABLET PO SCH (09:32)
[2020-10-21] MEDS: DORZOLAMIDE 2% OPH SOLN 10 ML BOTTLE BOTH EYES SCH (09:34)
[2020-10-21] MEDS ORDERED: LACTATED RINGERS 1,000 ML IV ONE (09:42)
[2020-10-21] MEDS ORDERED: propofoL 200 MG/20 ML VIAL IV ONE (09:42)
[2020-10-21] MEDS ORDERED: LIDOCAINE 2% 5 ML VIAL ONE (09:42)
[2020-10-21] MEDS ORDERED: SUCCINYLCHOLINE 200 MG/10 ML VIAL ONE (09:42)
[2020-10-21] MEDS ORDERED: ONDANSETRON 4 MG/2 ML VIAL ONE (09:42)
[2020-10-21] MEDS ORDERED: ROCURONIUM 50 MG/5 ML VIAL IV ONE (09:42)
[2020-10-21] MEDS ORDERED: ACETAMINOPHEN 1,000 MG/100 ML VIAL IV ONE (09:42)
[2020-10-21] MEDS ORDERED: SEVOFLURANE 1 UNIT/15 MINUTE INH ONE ×2 (09:46→10:27)
[2020-10-21] MEDS ORDERED: CALCIUM CHLORIDE 1,000 MG/10 ML VIAL IV ONE (09:50)
[2020-10-21] MEDS ORDERED: PHENYLEPHRINE 1 MG/10 ML SYRINGE IV ONE (09:50)
[2020-10-21] MEDS ORDERED: FUROSEMIDE 20 MG/2 ML VIAL ONE (10:27)
[2020-10-21] MEDS: BRIMONIDINE/TIMOLOL OPH SOLN 5 ML BOTTLE BOTH EYES SCH (11:57)
[2020-10-21] MEDS: IRON SUCROSE 300 MG in SODIUM CHLORIDE 0.9% 100 ML IV SCH (11:57)
[2020-10-21] MEDS: DIVALPROEX 250 MG TABLET PO SCH ×2 (11:59→20:47)
[2020-10-21] MEDS: PANTOPRAZOLE 40 MG TABLET PO SCH (11:59)
[2020-10-21] MEDS: MULTIVITAMIN (CENTRUM) TABLET PO SCH (12:00)
[2020-10-21] MEDS: cloNIDine 0.1 MG TABLET PO SCH ×2 (12:00→20:47)
[2020-10-21] MEDS: FERROUS SULFATE 325 MG TABLET PO SCH (12:00)
[2020-10-21] MEDS: amLODIPine 10 MG TABLET PO SCH (12:00)
[2020-10-21] MEDS: MEMANTINE 10 MG TABLET PO SCH ×2 (12:01→21:26)
[2020-10-21] MEDS: carvediloL 6.25 MG TABLET PO SCH ×2 (12:01→20:47)
[2020-10-21] MEDS ORDERED: GLUCAGON 1 MG VIAL IM PRN (12:05)
[2020-10-21] MEDS ORDERED: DEXTROSE 50% 25 GM/50 ML VIAL IV PRN (12:05)
[2020-10-21] MEDS: SODIUM CHLORIDE 0.9% 1,000 ML IV SCH ×2 (12:24→16:20)
[2020-10-21 13:12] LABS: Basophils % 0.1 % (0.0-0.8); Eosinophils # 0.1 10*3/uL (0.0-0.87); Eosinophils % 0.8 % (0.00-10.9); Hematocrit 26.5 VOL% (35.7-47.0); Hemoglobin 8.1 GM/DL (12.0-16.0); Immature Granulocytes % 1.1 %; Immature Granulocytes Absolute 0.18 #; Lymphocytes # 1.2 10*3/uL (1.4-4.0); Lymphocytes % 7.4 % (21.3-54.2); Mean Corpuscular HGB Conc 30.6 GM/DL (32-36); Mean Corpuscular Volume 94.3 FL (87-102); Mean Platelet Volume 9.6 FL (9.6-12.0); Monocytes % 4.6 % (1.7-12.7); NRBC # 0.02 10*3/uL; Platelet Count 223 T/CUMM (130-400); Red Blood Count 2.81 MC/CUMM (3.8-5.5); Red Cell Distribution Width 14.9 % (9.3-17.3); White Blood Count 16.2 T/CUMM (4-12)
[2020-10-21] MEDS: DIGOXIN 0.125 MG TABLET PO SCH (14:04)
[2020-10-21] MEDS ORDERED: HYDROmorphone 2 MG/1 ML VIAL IV PRN (14:10)
[2020-10-21] MEDS: GABAPENTIN 300 MG CAPSULE PO SCH ×2 (16:11→20:48)
[2020-10-21] MEDS: ATORVASTATIN 20 MG TABLET PO SCH (17:15)
[2020-10-21] MEDS: CITALOPRAM 20 MG TABLET PO SCH (20:47)
[2020-10-21] MEDS: DONEPEZIL 10 MG TABLET PO SCH (20:47)
[2020-10-21] MEDS: INSULIN GLARGINE 100 UNIT/ML SUBCUT SCH (20:48)
[2020-10-22] MEDS: BRIMONIDINE/TIMOLOL OPH SOLN 5 ML BOTTLE BOTH EYES SCH ×3 (00:21→21:29)
[2020-10-22] MEDS: PIPERACILLIN/TAZOBACTAM 3,375 MG in SODIUM CHLORIDE 0.9% 100 ML IV SCH ×2 (03:59→13:00)
[2020-10-22] MEDS: DORZOLAMIDE 2% OPH SOLN 10 ML BOTTLE BOTH EYES SCH ×2 (04:00→21:15)
[2020-10-22 06:32] LABS: Basophils % 0.1 % (0.0-0.8); Eosinophils # 0.2 10*3/uL (0.0-0.87); Eosinophils % 1.1 % (0.00-10.9); Hematocrit 25.4 VOL% (35.7-47.0); Hemoglobin 7.6 GM/DL (12.0-16.0); Immature Granulocytes % 0.9 %; Immature Granulocytes Absolute 0.13 #; Lymphocytes % 7.1 % (21.3-54.2); Mean Corpuscular HGB Conc 29.9 GM/DL (32-36); Mean Corpuscular Volume 95.1 FL (87-102); Mean Platelet Volume 10.2 FL (9.6-12.0); Monocytes % 4.9 % (1.7-12.7); NRBC # 0.03 10*3/uL; Neutrophils % 85.9 % (38.7-73.9); Platelet Count 235 T/CUMM (130-400); Red Blood Count 2.67 MC/CUMM (3.8-5.5); White Blood Count 13.9 T/CUMM (4-12)
[2020-10-22 06:54] LABS: Osmolality,Calculated 294.1 MOS/KG (273-304); Potassium 4.9 MMOL/L (3.5-5.1)
[2020-10-22] MEDS ORDERED: SODIUM CHLORIDE 0.9% 1,000 ML IV PRN (08:06)
[2020-10-22] MEDS ORDERED: DORZOLAMIDE 2% OPH SOLN 10 ML BOTTLE BOTH EYES SCH (09:00)
[2020-10-22] MEDS: FERROUS SULFATE 325 MG TABLET PO SCH (10:21)
[2020-10-22] MEDS: DIVALPROEX 250 MG TABLET PO SCH ×2 (10:21→21:14)
[2020-10-22] MEDS: cloNIDine 0.1 MG TABLET PO SCH ×2 (10:22→21:13)
[2020-10-22] MEDS: MULTIVITAMIN (CENTRUM) TABLET PO SCH (10:22)
[2020-10-22] MEDS: ATORVASTATIN 20 MG TABLET PO SCH (10:22)
[2020-10-22] MEDS: FENOFIBRATE 145 MG TABLET PO SCH (10:22)
[2020-10-22] MEDS: ASPIRIN EC 81 MG TABLET PO SCH (10:22)
[2020-10-22] MEDS: GABAPENTIN 300 MG CAPSULE PO SCH ×3 (10:22→21:12)
[2020-10-22] MEDS: amLODIPine 10 MG TABLET PO SCH (10:22)
[2020-10-22] MEDS: carvediloL 6.25 MG TABLET PO SCH ×2 (10:22→21:14)
[2020-10-22] MEDS: PANTOPRAZOLE 40 MG TABLET PO SCH (10:23)
[2020-10-22] MEDS: INSULIN REGULAR 100 UNIT/ML SUBCUT SCH ×4 (10:23→22:31)
[2020-10-22] MEDS: MEMANTINE 10 MG TABLET PO SCH ×2 (10:24→21:11)
[2020-10-22] MEDS: SODIUM CHLORIDE 0.9% 1,000 ML IV SCH (10:24)
[2020-10-22] MEDS: IRON SUCROSE 300 MG in SODIUM CHLORIDE 0.9% 100 ML IV SCH (12:59)
[2020-10-22] MEDS: CLINDAMYCIN INJ 600 MG in PREMIX 1 EACH IV SCH ×2 (12:59→16:40)
[2020-10-22] MEDS: LEVOFLOXACIN INJ 500 MG in PREMIX 1 EACH IV SCH (13:38)
[2020-10-22] MEDS: DIGOXIN 0.125 MG TABLET PO SCH (13:39)
[2020-10-22 14:33] LABS: Hematocrit 28.3 VOL% (35.7-47.0)
[2020-10-22 14:39] LABS: Hemoglobin 8.6 GM/DL (12.0-16.0)
[2020-10-22] MEDS: ACETAMINOPHEN 325 MG TABLET PO PRN ×2 (16:41→21:15)
[2020-10-22] MEDS: DONEPEZIL 10 MG TABLET PO SCH (21:12)
[2020-10-22] MEDS: CITALOPRAM 20 MG TABLET PO SCH (21:13)
[2020-10-22] MEDS: INSULIN GLARGINE 100 UNIT/ML SUBCUT SCH (22:39)
[2020-10-23] MEDS: CLINDAMYCIN INJ 600 MG in PREMIX 1 EACH IV SCH ×3 (03:30→17:23)
[2020-10-23] MEDS: SODIUM CHLORIDE 0.9% 1,000 ML IV SCH (04:50)
[2020-10-23 05:55] LABS: Calcium 7.6 MG/DL (8.5-10.1); Osmolality,Calculated 293.4 MOS/KG (273-304); Potassium 4.7 MMOL/L (3.5-5.1)
[2020-10-23] MEDS: INSULIN REGULAR 100 UNIT/ML SUBCUT SCH ×4 (08:24→22:01)
[2020-10-23] MEDS: MEMANTINE 10 MG TABLET PO SCH ×2 (10:15→21:57)
[2020-10-23] MEDS: MULTIVITAMIN (CENTRUM) TABLET PO SCH (10:15)
[2020-10-23] MEDS: amLODIPine 10 MG TABLET PO SCH (10:15)
[2020-10-23] MEDS: FERROUS SULFATE 325 MG TABLET PO SCH (10:15)
[2020-10-23] MEDS: ATORVASTATIN 20 MG TABLET PO SCH (10:15)
[2020-10-23] MEDS: PANTOPRAZOLE 40 MG TABLET PO SCH (10:15)
[2020-10-23] MEDS: FENOFIBRATE 145 MG TABLET PO SCH (10:15)
[2020-10-23] MEDS: GABAPENTIN 300 MG CAPSULE PO SCH ×3 (10:15→21:57)
[2020-10-23] MEDS: ASPIRIN EC 81 MG TABLET PO SCH (10:15)
[2020-10-23] MEDS: cloNIDine 0.1 MG TABLET PO SCH ×2 (10:15→21:56)
[2020-10-23] MEDS: carvediloL 6.25 MG TABLET PO SCH ×2 (10:15→21:57)
[2020-10-23] MEDS: DIVALPROEX 250 MG TABLET PO SCH ×2 (10:38→21:57)
[2020-10-23] MEDS: IRON SUCROSE 300 MG in SODIUM CHLORIDE 0.9% 100 ML IV SCH (10:39)
[2020-10-23] MEDS: BRIMONIDINE/TIMOLOL OPH SOLN 5 ML BOTTLE BOTH EYES SCH ×2 (10:44→22:00)
[2020-10-23] MEDS: DORZOLAMIDE 2% OPH SOLN 10 ML BOTTLE BOTH EYES SCH ×2 (10:44→22:01)
[2020-10-23] MEDS: DIGOXIN 0.125 MG TABLET PO SCH (17:11)
[2020-10-23] MEDS: CITALOPRAM 20 MG TABLET PO SCH (21:57)
[2020-10-23] MEDS: DONEPEZIL 10 MG TABLET PO SCH (21:57)
[2020-10-23] MEDS: INSULIN GLARGINE 100 UNIT/ML SUBCUT SCH (22:01)
[2020-10-24] MEDS: CLINDAMYCIN INJ 600 MG in PREMIX 1 EACH IV SCH ×3 (00:55→17:04)
[2020-10-24] MEDS: SODIUM CHLORIDE 0.9% 1,000 ML IV SCH ×2 (00:55→21:45)
[2020-10-24 05:30] LABS: Basophils % 0.3 % (0.0-0.8); Eosinophils # 0.1 10*3/uL (0.0-0.87); Eosinophils % 0.9 % (0.00-10.9); Hematocrit 27.6 VOL% (35.7-47.0); Hemoglobin 8.6 GM/DL (12.0-16.0); Immature Granulocytes % 2.3 %; Immature Granulocytes Absolute 0.27 #; Lymphocytes # 1.5 10*3/uL (1.4-4.0); Lymphocytes % 12.6 % (21.3-54.2); Mean Corpuscular HGB Conc 31.2 GM/DL (32-36); Mean Corpuscular Volume 92.3 FL (87-102); Mean Platelet Volume 10.3 FL (9.6-12.0); Monocytes % 10.5 % (1.7-12.7); Neutrophils % 73.4 % (38.7-73.9); Platelet Count 208 T/CUMM (130-400); Red Blood Count 2.99 MC/CUMM (3.8-5.5); Red Cell Distribution Width 14.6 % (9.3-17.3); White Blood Count 11.8 T/CUMM (4-12)
[2020-10-24 07:41] LABS: Calcium 8.2 MG/DL (8.5-10.1); Osmolality,Calculated 290.7 MOS/KG (273-304)
[2020-10-24] MEDS: INSULIN REGULAR 100 UNIT/ML SUBCUT SCH ×4 (07:47→21:46)
[2020-10-24] MEDS: carvediloL 6.25 MG TABLET PO SCH ×2 (09:23→21:33)
[2020-10-24] MEDS: FERROUS SULFATE 325 MG TABLET PO SCH (09:23)
[2020-10-24] MEDS: cloNIDine 0.1 MG TABLET PO SCH ×2 (09:23→21:33)
[2020-10-24] MEDS: ATORVASTATIN 20 MG TABLET PO SCH (09:23)
[2020-10-24] MEDS: DIVALPROEX 250 MG TABLET PO SCH ×2 (09:23→21:32)
[2020-10-24] MEDS: PANTOPRAZOLE 40 MG TABLET PO SCH (09:23)
[2020-10-24] MEDS: MEMANTINE 10 MG TABLET PO SCH ×2 (09:24→21:32)
[2020-10-24] MEDS: ASPIRIN EC 81 MG TABLET PO SCH (09:24)
[2020-10-24] MEDS: GABAPENTIN 300 MG CAPSULE PO SCH ×3 (09:24→21:32)
[2020-10-24] MEDS: MULTIVITAMIN (CENTRUM) TABLET PO SCH (09:25)
[2020-10-24] MEDS: amLODIPine 10 MG TABLET PO SCH (09:25)
[2020-10-24] MEDS: BRIMONIDINE/TIMOLOL OPH SOLN 5 ML BOTTLE BOTH EYES SCH ×2 (09:25→21:45)
[2020-10-24] MEDS: DORZOLAMIDE 2% OPH SOLN 10 ML BOTTLE BOTH EYES SCH ×2 (09:25→21:46)
[2020-10-24] MEDS: FENOFIBRATE 145 MG TABLET PO SCH (09:25)
[2020-10-24] MEDS: LEVOFLOXACIN INJ 500 MG in PREMIX 1 EACH IV SCH (12:36)
[2020-10-24] MEDS: DIGOXIN 0.125 MG TABLET PO SCH (12:36)
[2020-10-24] MEDS: DONEPEZIL 10 MG TABLET PO SCH (21:33)
[2020-10-24] MEDS: CITALOPRAM 20 MG TABLET PO SCH (21:33)
[2020-10-24] MEDS: INSULIN GLARGINE 100 UNIT/ML SUBCUT SCH (21:46)
[2020-10-25] MEDS: CLINDAMYCIN INJ 600 MG in PREMIX 1 EACH IV SCH ×3 (01:04→17:12)
[2020-10-25 05:33] LABS: Basophils % 0.3 % (0.0-0.8); Eosinophils # 0.1 10*3/uL (0.0-0.87); Eosinophils % 0.6 % (0.00-10.9); Hematocrit 25.3 VOL% (35.7-47.0); Hemoglobin 7.9 GM/DL (12.0-16.0); Immature Granulocytes % 3.6 %; Immature Granulocytes Absolute 0.44 #; Lymphocytes # 1.9 10*3/uL (1.4-4.0); Lymphocytes % 15.6 % (21.3-54.2); Mean Corpuscular HGB Conc 31.2 GM/DL (32-36); Mean Platelet Volume 9.9 FL (9.6-12.0); Monocytes % 7.8 % (1.7-12.7); Neutrophils % 72.1 % (38.7-73.9); Platelet Count 210 T/CUMM (130-400); Red Blood Count 2.75 MC/CUMM (3.8-5.5); Red Cell Distribution Width 14.6 % (9.3-17.3); White Blood Count 12.4 T/CUMM (4-12)
[2020-10-25 06:00] LABS: Calcium 8.3 MG/DL (8.5-10.1); Osmolality,Calculated 295.4 MOS/KG (273-304)
[2020-10-25] MEDS: ATORVASTATIN 20 MG TABLET PO SCH (10:02)
[2020-10-25] MEDS: GABAPENTIN 300 MG CAPSULE PO SCH ×2 (10:02→14:51)
[2020-10-25] MEDS: MEMANTINE 10 MG TABLET PO SCH ×2 (10:02→21:35)
[2020-10-25] MEDS: MULTIVITAMIN (CENTRUM) TABLET PO SCH (10:02)
[2020-10-25] MEDS: INSULIN REGULAR 100 UNIT/ML SUBCUT SCH ×4 (10:02→22:00)
[2020-10-25] MEDS: DIVALPROEX 250 MG TABLET PO SCH ×2 (10:03→21:34)
[2020-10-25] MEDS: cloNIDine 0.1 MG TABLET PO SCH ×2 (10:03→21:33)
[2020-10-25] MEDS: amLODIPine 10 MG TABLET PO SCH (10:04)
[2020-10-25] MEDS: FENOFIBRATE 145 MG TABLET PO SCH (10:04)
[2020-10-25] MEDS: FERROUS SULFATE 325 MG TABLET PO SCH (10:05)
[2020-10-25] MEDS: carvediloL 6.25 MG TABLET PO SCH ×2 (10:05→21:34)
[2020-10-25] MEDS: BRIMONIDINE/TIMOLOL OPH SOLN 5 ML BOTTLE BOTH EYES SCH ×2 (10:05→21:33)
[2020-10-25] MEDS: DORZOLAMIDE 2% OPH SOLN 10 ML BOTTLE BOTH EYES SCH ×2 (10:06→21:35)
[2020-10-25] MEDS: ASPIRIN EC 81 MG TABLET PO SCH (10:07)
[2020-10-25] MEDS: PANTOPRAZOLE 40 MG TABLET PO SCH (10:11)
[2020-10-25] MEDS: ERGOCALCIFEROL 50,000 UNIT CAPSULE PO SCH (10:11)
[2020-10-25] MEDS: DIGOXIN 0.125 MG TABLET PO SCH (13:25)
[2020-10-25] MEDS: SODIUM CHLORIDE 0.9% 1,000 ML IV SCH ×2 (14:51→17:12)
[2020-10-25 15:39] LABS: ABG Base Excess -1.6 MMOL/L (-2.5-2.5); ABG HCO3 23.1 MMOL/L (20-26); ABG Oxygen Saturation 99.4 % (95-100); ABG PCO2 50.2 MM HG (35-48); ABG PH 7.304 (7.35-7.45); ABG TCO2 23.5 MMOL/L (23-27)
[2020-10-25] MEDS: ACETAMINOPHEN 325 MG TABLET PO PRN (17:31)
[2020-10-25] MEDS: DONEPEZIL 10 MG TABLET PO SCH (21:33)
[2020-10-25] MEDS: CITALOPRAM 20 MG TABLET PO SCH (21:33)
[2020-10-25] MEDS: INSULIN GLARGINE 100 UNIT/ML SUBCUT SCH (22:00)
[2020-10-26] MEDS: CLINDAMYCIN INJ 600 MG in PREMIX 1 EACH IV SCH ×3 (01:22→17:03)
[2020-10-26] MEDS: SODIUM CHLORIDE 0.9% 1,000 ML IV SCH ×3 (04:42→18:15)
[2020-10-26 05:55] LABS: Basophils % 0.2 % (0.0-0.8); Eosinophils # 0.1 10*3/uL (0.0-0.87); Eosinophils % 1.3 % (0.00-10.9); Hematocrit 25.8 VOL% (35.7-47.0); Hemoglobin 7.7 GM/DL (12.0-16.0); Immature Granulocytes Absolute 0.32 #; Lymphocytes # 1.8 10*3/uL (1.4-4.0); Lymphocytes % 17.2 % (21.3-54.2); Mean Corpuscular HGB Conc 29.8 GM/DL (32-36); Mean Corpuscular Volume 95.9 FL (87-102); Mean Platelet Volume 10.8 FL (9.6-12.0); Monocytes % 8.4 % (1.7-12.7); Neutrophils % 69.9 % (38.7-73.9); Platelet Count 248 T/CUMM (130-400); Red Blood Count 2.69 MC/CUMM (3.8-5.5); Red Cell Distribution Width 14.9 % (9.3-17.3); White Blood Count 10.7 T/CUMM (4-12)
[2020-10-26 06:18] LABS: Calcium 8.2 MG/DL (8.5-10.1); Osmolality,Calculated 295.1 MOS/KG (273-304); Potassium 5.4 MMOL/L (3.5-5.1)
[2020-10-26 06:30] LABS: Eosinophils 4 % (0-10); Hypochromasia 2+; Lymphocytes 12 % (20-55); Microcytosis 1+; Platelet Estimate Adequate; Segmented Neutrophils 73 % (50-85); Total Cells Counted 100
[2020-10-26] MEDS: ASPIRIN EC 81 MG TABLET PO SCH (09:21)
[2020-10-26] MEDS: cloNIDine 0.1 MG TABLET PO SCH ×2 (09:21→21:18)
[2020-10-26] MEDS: MULTIVITAMIN (CENTRUM) TABLET PO SCH (09:22)
[2020-10-26] MEDS: ATORVASTATIN 20 MG TABLET PO SCH (09:22)
[2020-10-26] MEDS: FENOFIBRATE 145 MG TABLET PO SCH (09:22)
[2020-10-26] MEDS: amLODIPine 10 MG TABLET PO SCH (09:22)
[2020-10-26] MEDS: DIVALPROEX 250 MG TABLET PO SCH ×2 (09:22→21:19)
[2020-10-26] MEDS: carvediloL 6.25 MG TABLET PO SCH (09:22)
[2020-10-26] MEDS: FERROUS SULFATE 325 MG TABLET PO SCH (09:23)
[2020-10-26] MEDS: MEMANTINE 10 MG TABLET PO SCH ×2 (09:23→21:21)
[2020-10-26] MEDS: PANTOPRAZOLE 40 MG TABLET PO SCH (09:23)
[2020-10-26] MEDS: INSULIN REGULAR 100 UNIT/ML SUBCUT SCH ×4 (09:24→21:19)
[2020-10-26] MEDS: BRIMONIDINE/TIMOLOL OPH SOLN 5 ML BOTTLE BOTH EYES SCH ×2 (09:25→21:18)
[2020-10-26] MEDS: DORZOLAMIDE 2% OPH SOLN 10 ML BOTTLE BOTH EYES SCH ×2 (09:26→21:21)
[2020-10-26] MEDS ORDERED: SODIUM POLYSTYRENE SULFATE 15 GM/60 ML BOTTLE PO ONE (11:30)
[2020-10-26] MEDS: LEVOFLOXACIN INJ 500 MG in PREMIX 1 EACH IV SCH (11:47)
[2020-10-26] MEDS: DIGOXIN 0.125 MG TABLET PO SCH (12:29)
[2020-10-26] MEDS: DONEPEZIL 10 MG TABLET PO SCH (21:00)
[2020-10-26] MEDS: CITALOPRAM 20 MG TABLET PO SCH (21:18)
[2020-10-26] MEDS: INSULIN GLARGINE 100 UNIT/ML SUBCUT SCH (21:20)
[2020-10-27] MEDS: carvediloL 6.25 MG TABLET PO SCH ×3 (00:18→21:41)
[2020-10-27] MEDS: CLINDAMYCIN INJ 600 MG in PREMIX 1 EACH IV SCH ×3 (00:30→17:49)
[2020-10-27 06:05] LABS: Basophils % 0.4 % (0.0-0.8); Eosinophils # 0.2 10*3/uL (0.0-0.87); Eosinophils % 1.5 % (0.00-10.9); Hematocrit 26.8 VOL% (35.7-47.0); Hemoglobin 8.3 GM/DL (12.0-16.0); Immature Granulocytes % 2.6 %; Immature Granulocytes Absolute 0.26 #; Lymphocytes # 1.4 10*3/uL (1.4-4.0); Lymphocytes % 13.7 % (21.3-54.2); Mean Platelet Volume 10.2 FL (9.6-12.0); Monocytes % 6.2 % (1.7-12.7); Neutrophils % 75.6 % (38.7-73.9); Platelet Count 266 T/CUMM (130-400); Red Blood Count 2.85 MC/CUMM (3.8-5.5); Red Cell Distribution Width 14.6 % (9.3-17.3)
[2020-10-27] MEDS: INSULIN REGULAR 100 UNIT/ML SUBCUT SCH ×4 (06:10→21:43)
[2020-10-27 06:27] LABS: Osmolality,Calculated 296.8 MOS/KG (273-304); Potassium 4.7 MMOL/L (3.5-5.1)
[2020-10-27] MEDS: DIVALPROEX 250 MG TABLET PO SCH ×2 (08:31→21:41)
[2020-10-27] MEDS: FENOFIBRATE 145 MG TABLET PO SCH (08:32)
[2020-10-27] MEDS: cloNIDine 0.1 MG TABLET PO SCH ×2 (08:32→21:41)
[2020-10-27] MEDS: ASPIRIN EC 81 MG TABLET PO SCH (08:33)
[2020-10-27] MEDS: PANTOPRAZOLE 40 MG TABLET PO SCH (08:34)
[2020-10-27] MEDS: MEMANTINE 10 MG TABLET PO SCH ×2 (08:35→21:42)
[2020-10-27] MEDS: amLODIPine 10 MG TABLET PO SCH (08:35)
[2020-10-27] MEDS: FERROUS SULFATE 325 MG TABLET PO SCH (08:36)
[2020-10-27] MEDS: ATORVASTATIN 20 MG TABLET PO SCH (08:36)
[2020-10-27] MEDS: MULTIVITAMIN (CENTRUM) TABLET PO SCH (08:39)
[2020-10-27] MEDS: DORZOLAMIDE 2% OPH SOLN 10 ML BOTTLE BOTH EYES SCH ×2 (10:03→21:44)
[2020-10-27] MEDS: BRIMONIDINE/TIMOLOL OPH SOLN 5 ML BOTTLE BOTH EYES SCH ×2 (10:03→21:44)
[2020-10-27] MEDS: DIGOXIN 0.125 MG TABLET PO SCH (13:20)
[2020-10-27] MEDS: SODIUM CHLORIDE 0.9% 1,000 ML IV SCH (17:45)
[2020-10-27] MEDS: DONEPEZIL 10 MG TABLET PO SCH (21:42)
[2020-10-27] MEDS: CITALOPRAM 20 MG TABLET PO SCH (21:42)
[2020-10-27] MEDS: INSULIN GLARGINE 100 UNIT/ML SUBCUT SCH (21:42)
[2020-10-28] MEDS: SODIUM CHLORIDE 0.9% 1,000 ML IV SCH (01:52)
[2020-10-28] MEDS: CLINDAMYCIN INJ 600 MG in PREMIX 1 EACH IV SCH ×3 (02:08→17:54)
[2020-10-28 06:09] LABS: Basophils % 0.4 % (0.0-0.8); Eosinophils # 0.1 10*3/uL (0.0-0.87); Eosinophils % 1.2 % (0.00-10.9); Hemoglobin 8.3 GM/DL (12.0-16.0); Immature Granulocytes Absolute 0.22 #; Lymphocytes # 1.5 10*3/uL (1.4-4.0); Lymphocytes % 13.3 % (21.3-54.2); Mean Corpuscular HGB Conc 30.7 GM/DL (32-36); Mean Corpuscular Volume 93.1 FL (87-102); Mean Platelet Volume 10.5 FL (9.6-12.0); Monocytes % 5.4 % (1.7-12.7); Neutrophils % 77.7 % (38.7-73.9); Platelet Count 297 T/CUMM (130-400); Red Cell Distribution Width 14.5 % (9.3-17.3); White Blood Count 11.2 T/CUMM (4-12)
[2020-10-28 06:24] LABS: Calcium 8.2 MG/DL (8.5-10.1); Osmolality,Calculated 287.3 MOS/KG (273-304); Potassium 4.8 MMOL/L (3.5-5.1)
[2020-10-28] MEDS: INSULIN REGULAR 100 UNIT/ML SUBCUT SCH ×4 (07:51→21:30)
[2020-10-28] MEDS: FENOFIBRATE 145 MG TABLET PO SCH (08:21)
[2020-10-28] MEDS: cloNIDine 0.1 MG TABLET PO SCH ×2 (08:22→21:24)
[2020-10-28] MEDS: MULTIVITAMIN (CENTRUM) TABLET PO SCH (08:23)
[2020-10-28] MEDS: ASPIRIN EC 81 MG TABLET PO SCH (08:23)
[2020-10-28] MEDS: DIVALPROEX 250 MG TABLET PO SCH ×2 (08:24→21:24)
[2020-10-28] MEDS: FERROUS SULFATE 325 MG TABLET PO SCH (08:24)
[2020-10-28] MEDS: amLODIPine 10 MG TABLET PO SCH (08:25)
[2020-10-28] MEDS: carvediloL 6.25 MG TABLET PO SCH ×2 (08:25→21:25)
[2020-10-28] MEDS: MEMANTINE 10 MG TABLET PO SCH ×2 (08:26→21:24)
[2020-10-28] MEDS: ATORVASTATIN 20 MG TABLET PO SCH (08:26)
[2020-10-28] MEDS: PANTOPRAZOLE 40 MG TABLET PO SCH (08:26)
[2020-10-28] MEDS: BRIMONIDINE/TIMOLOL OPH SOLN 5 ML BOTTLE BOTH EYES SCH ×2 (08:28→21:25)
[2020-10-28] MEDS: DORZOLAMIDE 2% OPH SOLN 10 ML BOTTLE BOTH EYES SCH ×2 (08:28→21:25)
[2020-10-28] MEDS: DIGOXIN 0.125 MG TABLET PO SCH (12:59)
[2020-10-28] MEDS: LEVOFLOXACIN INJ 500 MG in PREMIX 1 EACH IV SCH (15:30)
[2020-10-28] MEDS: DONEPEZIL 10 MG TABLET PO SCH (21:24)
[2020-10-28] MEDS: CITALOPRAM 20 MG TABLET PO SCH (21:25)
[2020-10-28] MEDS: INSULIN GLARGINE 100 UNIT/ML SUBCUT SCH (21:30)
[2020-10-29] MEDS: CLINDAMYCIN INJ 600 MG in PREMIX 1 EACH IV SCH ×2 (02:08→10:10)
[2020-10-29 06:36] LABS: Basophils # 0.1 10*3/uL (0.0-0.2); Basophils % 0.5 % (0.0-0.8); Eosinophils # 0.1 10*3/uL (0.0-0.87); Eosinophils % 0.7 % (0.00-10.9); Hematocrit 26.8 VOL% (35.7-47.0); Hemoglobin 8.3 GM/DL (12.0-16.0); Immature Granulocytes % 1.7 %; Lymphocytes # 1.4 10*3/uL (1.4-4.0); Lymphocytes % 11.2 % (21.3-54.2); Mean Corpuscular Volume 93.1 FL (87-102); Mean Platelet Volume 9.8 FL (9.6-12.0); Monocytes % 4.6 % (1.7-12.7); Neutrophils % 81.3 % (38.7-73.9); Platelet Count 286 T/CUMM (130-400); Red Blood Count 2.88 MC/CUMM (3.8-5.5); Red Cell Distribution Width 14.4 % (9.3-17.3); White Blood Count 12.1 T/CUMM (4-12)
[2020-10-29 06:57] LABS: Calcium 8.3 MG/DL (8.5-10.1); Potassium 4.6 MMOL/L (3.5-5.1)
[2020-10-29] MEDS: SODIUM CHLORIDE 0.9% 1,000 ML IV SCH ×2 (08:07→08:08)
[2020-10-29] MEDS: INSULIN REGULAR 100 UNIT/ML SUBCUT SCH ×4 (08:09→23:45)
[2020-10-29] MEDS: FENOFIBRATE 145 MG TABLET PO SCH (09:47)
[2020-10-29] MEDS: cloNIDine 0.1 MG TABLET PO SCH ×2 (09:47→23:45)
[2020-10-29] MEDS: ASPIRIN EC 81 MG TABLET PO SCH (09:47)
[2020-10-29] MEDS: carvediloL 6.25 MG TABLET PO SCH ×2 (09:47→23:45)
[2020-10-29] MEDS: MULTIVITAMIN (CENTRUM) TABLET PO SCH (09:47)
[2020-10-29] MEDS: PANTOPRAZOLE 40 MG TABLET PO SCH (09:48)
[2020-10-29] MEDS: MEMANTINE 10 MG TABLET PO SCH ×2 (09:48→23:46)
[2020-10-29] MEDS: DIVALPROEX 250 MG TABLET PO SCH (09:48)
[2020-10-29] MEDS: ATORVASTATIN 20 MG TABLET PO SCH (09:48)
[2020-10-29] MEDS: FERROUS SULFATE 325 MG TABLET PO SCH (09:48)
[2020-10-29] MEDS: amLODIPine 10 MG TABLET PO SCH (09:48)
[2020-10-29] MEDS: DORZOLAMIDE 2% OPH SOLN 10 ML BOTTLE BOTH EYES SCH ×2 (09:49→23:46)
[2020-10-29] MEDS: BRIMONIDINE/TIMOLOL OPH SOLN 5 ML BOTTLE BOTH EYES SCH ×2 (09:49→23:45)
[2020-10-29] MEDS: DIGOXIN 0.125 MG TABLET PO SCH (12:04)
[2020-10-29] MEDS ORDERED: DIVALPROEX 250 MG TABLET PO SCH (21:00)
[2020-10-29] MEDS ORDERED: MEMANTINE 10 MG TABLET PO SCH (21:00)
[2020-10-29] MEDS ORDERED: DONEPEZIL 10 MG TABLET PO SCH (21:00)
[2020-10-29] MEDS ORDERED: carvediloL 6.25 MG TABLET PO SCH (21:00)
[2020-10-29] MEDS: CITALOPRAM 20 MG TABLET PO SCH (23:45)
[2020-10-29] MEDS: DONEPEZIL 10 MG TABLET PO SCH (23:45)
[2020-10-29] MEDS: INSULIN GLARGINE 100 UNIT/ML SUBCUT SCH (23:46)
[2020-10-30] MEDS: hydrALAZINE 20 MG/1 ML VIAL IV PRN (01:32)
[2020-10-30 07:55] LABS: Basophils # 0.1 10*3/uL (0.0-0.2); Basophils % 0.5 % (0.0-0.8); Eosinophils # 0.1 10*3/uL (0.0-0.87); Eosinophils % 0.5 % (0.00-10.9); Hematocrit 29.9 VOL% (35.7-47.0); Hemoglobin 9.2 GM/DL (12.0-16.0); Immature Granulocytes % 1.7 %; Immature Granulocytes Absolute 0.21 #; Lymphocytes # 1.2 10*3/uL (1.4-4.0); Mean Corpuscular HGB Conc 30.8 GM/DL (32-36); Mean Corpuscular Volume 92.6 FL (87-102); Mean Platelet Volume 10.2 FL (9.6-12.0); Monocytes % 4.6 % (1.7-12.7); Neutrophils % 82.7 % (38.7-73.9); Platelet Count 350 T/CUMM (130-400); Red Blood Count 3.23 MC/CUMM (3.8-5.5); Red Cell Distribution Width 13.9 % (9.3-17.3); White Blood Count 12.4 T/CUMM (4-12)
[2020-10-30] MEDS: INSULIN REGULAR 100 UNIT/ML SUBCUT SCH ×4 (08:07→21:34)
[2020-10-30 08:12] LABS: Calcium 8.8 MG/DL (8.5-10.1); Osmolality,Calculated 288.8 MOS/KG (273-304); Potassium 4.3 MMOL/L (3.5-5.1)
[2020-10-30] MEDS ORDERED: amLODIPine 10 MG TABLET PO SCH (09:00)
[2020-10-30] MEDS: ASPIRIN EC 81 MG TABLET PO SCH (10:16)
[2020-10-30] MEDS: ATORVASTATIN 20 MG TABLET PO SCH (10:16)
[2020-10-30] MEDS: MULTIVITAMIN (CENTRUM) TABLET PO SCH (10:16)
[2020-10-30] MEDS: FENOFIBRATE 145 MG TABLET PO SCH (10:16)
[2020-10-30] MEDS: cloNIDine 0.1 MG TABLET PO SCH ×2 (10:17→21:33)
[2020-10-30] MEDS: FERROUS SULFATE 325 MG TABLET PO SCH (10:17)
[2020-10-30] MEDS: MEMANTINE 10 MG TABLET PO SCH ×2 (10:17→21:34)
[2020-10-30] MEDS: PANTOPRAZOLE 40 MG TABLET PO SCH (10:18)
[2020-10-30] MEDS: amLODIPine 10 MG TABLET PO SCH (10:18)
[2020-10-30] MEDS: carvediloL 6.25 MG TABLET PO SCH ×2 (10:20→21:34)
[2020-10-30] MEDS: BRIMONIDINE/TIMOLOL OPH SOLN 5 ML BOTTLE BOTH EYES SCH ×2 (10:21→21:34)
[2020-10-30] MEDS: DORZOLAMIDE 2% OPH SOLN 10 ML BOTTLE BOTH EYES SCH ×2 (10:22→21:35)
[2020-10-30] MEDS: DIGOXIN 0.125 MG TABLET PO SCH (14:19)
[2020-10-30 15:16] LABS: Basophils # 0.1 10*3/uL (0.0-0.2); Basophils % 0.5 % (0.0-0.8); Eosinophils # 0.1 10*3/uL (0.0-0.87); Eosinophils % 0.4 % (0.00-10.9); Hematocrit 29.9 VOL% (35.7-47.0); Hemoglobin 9.3 GM/DL (12.0-16.0); Immature Granulocytes % 1.5 %; Immature Granulocytes Absolute 0.19 #; Lymphocytes % 7.9 % (21.3-54.2); Mean Corpuscular HGB Conc 31.1 GM/DL (32-36); Mean Corpuscular Volume 92.3 FL (87-102); Monocytes % 4.9 % (1.7-12.7); Neutrophils % 84.8 % (38.7-73.9); Platelet Count 329 T/CUMM (130-400); Red Blood Count 3.24 MC/CUMM (3.8-5.5); White Blood Count 12.9 T/CUMM (4-12)
[2020-10-30] MEDS: DONEPEZIL 10 MG TABLET PO SCH (21:33)
[2020-10-30] MEDS: INSULIN GLARGINE 100 UNIT/ML SUBCUT SCH (21:34)
[2020-10-30] MEDS: CITALOPRAM 20 MG TABLET PO SCH (21:34)
[2020-10-30] MEDS: ONDANSETRON 4 MG/2 ML VIAL IV PRN (21:35)
[2020-10-30] MEDS: ACETAMINOPHEN 325 MG TABLET PO PRN (21:35)
[2020-10-31 06:36] LABS: Calcium 8.5 MG/DL (8.5-10.1); Osmolality,Calculated 288.8 MOS/KG (273-304); Potassium 4.2 MMOL/L (3.5-5.1)
[2020-10-31 07:57] LABS: Basophils # 0.1 10*3/uL (0.0-0.2); Basophils % 0.5 % (0.0-0.8); Eosinophils # 0.1 10*3/uL (0.0-0.87); Eosinophils % 0.7 % (0.00-10.9); Hematocrit 28.2 VOL% (35.7-47.0); Hemoglobin 8.9 GM/DL (12.0-16.0); Immature Granulocytes % 1.1 %; Immature Granulocytes Absolute 0.12 #; Lymphocytes # 1.6 10*3/uL (1.4-4.0); Lymphocytes % 14.9 % (21.3-54.2); Mean Corpuscular HGB Conc 31.6 GM/DL (32-36); Mean Corpuscular Volume 92.2 FL (87-102); Neutrophils % 76.8 % (38.7-73.9); Platelet Count 326 T/CUMM (130-400); Red Blood Count 3.06 MC/CUMM (3.8-5.5)
[2020-10-31] MEDS: INSULIN REGULAR 100 UNIT/ML SUBCUT SCH ×4 (08:08→22:47)
[2020-10-31] MEDS: MULTIVITAMIN (CENTRUM) TABLET PO SCH (09:26)
[2020-10-31] MEDS: ASPIRIN EC 81 MG TABLET PO SCH (09:27)
[2020-10-31] MEDS: ATORVASTATIN 20 MG TABLET PO SCH (09:27)
[2020-10-31] MEDS: FERROUS SULFATE 325 MG TABLET PO SCH (09:27)
[2020-10-31] MEDS: cloNIDine 0.1 MG TABLET PO SCH ×2 (09:27→22:26)
[2020-10-31] MEDS: MEMANTINE 10 MG TABLET PO SCH ×2 (09:27→22:48)
[2020-10-31] MEDS: PANTOPRAZOLE 40 MG TABLET PO SCH (09:27)
[2020-10-31] MEDS: amLODIPine 10 MG TABLET PO SCH (09:27)
[2020-10-31] MEDS: carvediloL 6.25 MG TABLET PO SCH ×2 (09:27→22:26)
[2020-10-31] MEDS: FENOFIBRATE 145 MG TABLET PO SCH (09:28)
[2020-10-31] MEDS: DORZOLAMIDE 2% OPH SOLN 10 ML BOTTLE BOTH EYES SCH ×2 (09:29→22:48)
[2020-10-31] MEDS: BRIMONIDINE/TIMOLOL OPH SOLN 5 ML BOTTLE BOTH EYES SCH ×2 (09:30→22:26)
[2020-10-31] MEDS: DIGOXIN 0.125 MG TABLET PO SCH (13:40)
[2020-10-31] MEDS: CITALOPRAM 20 MG TABLET PO SCH (22:26)
[2020-10-31] MEDS: DONEPEZIL 10 MG TABLET PO SCH (22:26)
[2020-10-31] MEDS: INSULIN GLARGINE 100 UNIT/ML SUBCUT SCH (22:48)
[2020-10-31] MEDS: ONDANSETRON 4 MG/2 ML VIAL IV PRN (22:50)
[2020-10-31] MEDS: ACETAMINOPHEN 325 MG TABLET PO PRN (22:50)
[2020-11-01 06:27] LABS: Basophils # 0.1 10*3/uL (0.0-0.2); Basophils % 0.7 % (0.0-0.8); Eosinophils # 0.1 10*3/uL (0.0-0.87); Eosinophils % 0.9 % (0.00-10.9); Hematocrit 28.2 VOL% (35.7-47.0); Hemoglobin 8.8 GM/DL (12.0-16.0); Immature Granulocytes % 1.3 %; Immature Granulocytes Absolute 0.13 #; Lymphocytes # 1.9 10*3/uL (1.4-4.0); Lymphocytes % 19.1 % (21.3-54.2); Mean Corpuscular HGB Conc 31.2 GM/DL (32-36); Mean Corpuscular Volume 92.8 FL (87-102); Mean Platelet Volume 9.8 FL (9.6-12.0); Monocytes % 6.4 % (1.7-12.7); Neutrophils % 71.6 % (38.7-73.9); Platelet Count 295 T/CUMM (130-400); Red Blood Count 3.04 MC/CUMM (3.8-5.5); Red Cell Distribution Width 13.7 % (9.3-17.3); White Blood Count 9.9 T/CUMM (4-12)
[2020-11-01 06:45] LABS: Calcium 8.2 MG/DL (8.5-10.1); Osmolality,Calculated 286.1 MOS/KG (273-304); Potassium 4.3 MMOL/L (3.5-5.1)
[2020-11-01] MEDS: INSULIN REGULAR 100 UNIT/ML SUBCUT SCH ×4 (08:12→22:13)
[2020-11-01] MEDS: ASPIRIN EC 81 MG TABLET PO SCH (09:06)
[2020-11-01] MEDS: DORZOLAMIDE 2% OPH SOLN 10 ML BOTTLE BOTH EYES SCH ×2 (09:06→22:05)
[2020-11-01] MEDS: carvediloL 6.25 MG TABLET PO SCH ×2 (09:06→22:04)
[2020-11-01] MEDS: MEMANTINE 10 MG TABLET PO SCH ×2 (09:06→22:04)
[2020-11-01] MEDS: cloNIDine 0.1 MG TABLET PO SCH ×2 (09:06→22:03)
[2020-11-01] MEDS: ATORVASTATIN 20 MG TABLET PO SCH (09:06)
[2020-11-01] MEDS: MULTIVITAMIN (CENTRUM) TABLET PO SCH (09:06)
[2020-11-01] MEDS: ERGOCALCIFEROL 50,000 UNIT CAPSULE PO SCH (09:07)
[2020-11-01] MEDS: FENOFIBRATE 145 MG TABLET PO SCH (09:07)
[2020-11-01] MEDS: FERROUS SULFATE 325 MG TABLET PO SCH (09:07)
[2020-11-01] MEDS: PANTOPRAZOLE 40 MG TABLET PO SCH (09:07)
[2020-11-01] MEDS: amLODIPine 10 MG TABLET PO SCH (09:07)
[2020-11-01] MEDS: BRIMONIDINE/TIMOLOL OPH SOLN 5 ML BOTTLE BOTH EYES SCH ×2 (09:08→22:05)
[2020-11-01] MEDS: DIGOXIN 0.125 MG TABLET PO SCH (14:21)
[2020-11-01] MEDS: CITALOPRAM 20 MG TABLET PO SCH (22:03)
[2020-11-01] MEDS: DONEPEZIL 10 MG TABLET PO SCH (22:04)
[2020-11-01] MEDS: INSULIN GLARGINE 100 UNIT/ML SUBCUT SCH (22:14)
[2020-11-02] MEDS: hydrALAZINE 20 MG/1 ML VIAL IV PRN (02:43)
[2020-11-02 06:27] LABS: Basophils # 0.1 10*3/uL (0.0-0.2); Basophils % 0.8 % (0.0-0.8); Eosinophils # 0.1 10*3/uL (0.0-0.87); Eosinophils % 1.2 % (0.00-10.9); Hematocrit 27.5 VOL% (35.7-47.0); Hemoglobin 8.6 GM/DL (12.0-16.0); Immature Granulocytes % 1.6 %; Immature Granulocytes Absolute 0.14 #; Lymphocytes % 22.7 % (21.3-54.2); Mean Corpuscular HGB Conc 31.3 GM/DL (32-36); Mean Corpuscular Volume 92.3 FL (87-102); Mean Platelet Volume 10.4 FL (9.6-12.0); Monocytes % 6.8 % (1.7-12.7); Neutrophils % 66.9 % (38.7-73.9); Platelet Count 299 T/CUMM (130-400); Red Blood Count 2.98 MC/CUMM (3.8-5.5); Red Cell Distribution Width 13.8 % (9.3-17.3)
[2020-11-02 06:53] LABS: Calcium 8.1 MG/DL (8.5-10.1); Osmolality,Calculated 287.1 MOS/KG (273-304); Potassium 4.2 MMOL/L (3.5-5.1)
[2020-11-02] MEDS: INSULIN REGULAR 100 UNIT/ML SUBCUT SCH (08:11)
[2020-11-02] MEDS: amLODIPine 10 MG TABLET PO SCH (09:21)
[2020-11-02] MEDS: MEMANTINE 10 MG TABLET PO SCH (09:21)
[2020-11-02] MEDS: PANTOPRAZOLE 40 MG TABLET PO SCH (09:21)
[2020-11-02] MEDS: cloNIDine 0.1 MG TABLET PO SCH (09:21)
[2020-11-02] MEDS: carvediloL 6.25 MG TABLET PO SCH (09:21)
[2020-11-02] MEDS: MULTIVITAMIN (CENTRUM) TABLET PO SCH (09:21)
[2020-11-02] MEDS: FERROUS SULFATE 325 MG TABLET PO SCH (09:21)
[2020-11-02] MEDS: ASPIRIN EC 81 MG TABLET PO SCH (09:21)
[2020-11-02] MEDS: FENOFIBRATE 145 MG TABLET PO SCH (09:21)
[2020-11-02] MEDS: DORZOLAMIDE 2% OPH SOLN 10 ML BOTTLE BOTH EYES SCH (09:22)
[2020-11-02] MEDS: BRIMONIDINE/TIMOLOL OPH SOLN 5 ML BOTTLE BOTH EYES SCH (09:22)
[2020-11-02] MEDS: ATORVASTATIN 20 MG TABLET PO SCH (09:22)
[2020-11-02 12:25] VITALS: BP 178/75
== END 2020-11-02 13:47 | disposition home or self-care (01) | DRG 239 ==
LOC: N.ED 09:23 → SUATTDRO 14:48 → N.EDINP 14:48 → N.TELES 16:41
PROVIDERS: ADMIT Nurse Practitioner Family; ATTEND Family Medicine

== ENCOUNTER 2021-09-06 13:24 | Inpatient (IN) ==
[2021-09-06 17:35] LABS: Bacteria,Urine Many /HPF (Few); Bilirubin,Urine Negative (Negative); Blood, Urine Small mg/dL (Negative); Glucose,Urine (UA) Negative (Negative); Ketones,Urine Negative (Negative); Nitrite,Urine Negative (Negative); Protein,Urine 100 MG/DL; RBC,Urine 14 /HPF (0-4); Urine Appearance CLOUDY (Clear); Urine Color Yellow (Yellow); Urine Specific Gravity 1.014 (1.001-1.035); Urine Urobilinogen < 2.0 EU/DL (<2.0)
[2021-09-06 18:47] LABS: Basophils % 0.3 % (0.0-0.8); Eosinophils # 0.1 10*3/uL (0.0-0.87); Eosinophils % 3.5 % (0.00-10.9); Hematocrit 31.2 VOL% (35.7-47.0); Hemoglobin 9.9 GM/DL (12.0-16.0); Immature Granulocytes % 0.3 %; Immature Granulocytes Absolute 0.01 #; Lymphocytes % 30.1 % (21.3-54.2); Mean Corpuscular HGB Conc 31.7 GM/DL (32-36); Mean Corpuscular Volume 94.3 FL (87-102); Mean Platelet Volume 10.6 FL (9.6-12.0); Monocytes % 0.6 % (1.7-12.7); Neutrophils % 65.2 % (38.7-73.9); Platelet Count 141 T/CUMM (130-400); Red Blood Count 3.31 MC/CUMM (3.8-5.5); Red Cell Distribution Width 13.6 % (9.3-17.3); White Blood Count 3.4 T/CUMM (4-12)
[2021-09-06 19:14] LABS: Albumin 2.8 G/DL (3.4-5.0); Bilirubin,Total 0.5 MG/DL (0.20-1.00); Calcium 9.1 MG/DL (8.5-10.1); Osmolality,Calculated 289.4 MOS/KG (273-304); Potassium 4.3 MMOL/L (3.5-5.1); Total Protein 7.1 G/DL (6.4-8.2)
[2021-09-06] MEDS ORDERED: GLUCAGON 1 MG VIAL IM PRN (19:52)
[2021-09-06] MEDS ORDERED: DEXTROSE 50% 25 GM/50 ML SYRINGE IV PRN (19:52)
[2021-09-06] MEDS ORDERED: ENOXAPARIN 30 MG/0.3 ML SYRINGE SUBCUT SCH (21:00)
[2021-09-06 21:11] LABS: Hypochromia Slight; Platelet Estimate Normal
[2021-09-06] MEDS ORDERED: PHENOL 1.4% THROAT SPRAY 177 ML BOTTLE PO PRN (22:49)
[2021-09-06] MEDS: NYSTATIN 500,000 UNIT/5 ML UDCUP PO SCH (23:57)
[2021-09-06] MEDS: MEROPENEM 500 MG in SODIUM CHLORIDE 0.9% 100 ML IV SCH (23:57)
[2021-09-07] MEDS: INSULIN LISPRO 100 UNIT/ML SUBCUT SCH ×5 (00:18→20:50)
[2021-09-07] MEDS: FLUCONAZOLE INJ 200 MG/100 ML PREMIX IV SCH ×2 (00:50→22:49)
[2021-09-07] MEDS: SODIUM CHLORIDE 0.9% 1,000 ML IV SCH ×2 (02:38→20:53)
[2021-09-07 05:52] LABS: Basophils % 0.5 % (0.0-0.8); Eosinophils # 0.1 10*3/uL (0.0-0.87); Eosinophils % 3.5 % (0.00-10.9); Hematocrit 29.1 VOL% (35.7-47.0); Immature Granulocytes % 0.5 %; Immature Granulocytes Absolute 0.01 #; Lymphocytes # 0.9 10*3/uL (1.4-4.0); Lymphocytes % 42.7 % (21.3-54.2); Mean Corpuscular HGB Conc 30.9 GM/DL (32-36); Mean Corpuscular Volume 96.4 FL (87-102); Mean Platelet Volume 10.3 FL (9.6-12.0); Neutrophils % 50.8 % (38.7-73.9); Platelet Count 113 T/CUMM (130-400); Red Blood Count 3.02 MC/CUMM (3.8-5.5); Red Cell Distribution Width 13.4 % (9.3-17.3)
[2021-09-07 06:32] LABS: Calcium 9.4 MG/DL (8.5-10.1); Osmolality,Calculated 290.3 MOS/KG (273-304); Thyroid Stimulating Hormone 2.34 uIU/ml (0.358-3.74)
[2021-09-07 07:33] LABS: Band Neutrophils 1 % (0-10); Hypochromia Slight; Lymphocytes 47 % (20-55); Segmented Neutrophils 51 % (50-85); Total Cells Counted 100
[2021-09-07 07:34] LABS: Microcytosis 1+; Ovalocytes Slight; Platelet Estimate Adequate
[2021-09-07] MEDS: PANTOPRAZOLE 40 MG VIAL IV SCH (09:25)
[2021-09-07] MEDS: NYSTATIN 500,000 UNIT/5 ML UDCUP PO SCH ×4 (09:27→22:10)
[2021-09-07] MEDS: MEROPENEM 500 MG in SODIUM CHLORIDE 0.9% 100 ML IV SCH ×2 (10:10→20:50)
[2021-09-07] MEDS: ZALEPLON 5 MG CAPSULE PO SCH (20:50)
[2021-09-08] MEDS: SODIUM CHLORIDE 0.9% 1,000 ML IV SCH ×2 (00:37→14:23)
[2021-09-08 08:58] LABS: Basophils % 0.8 % (0.0-0.8); Hematocrit 27.8 VOL% (35.7-47.0); Hemoglobin 8.9 GM/DL (12.0-16.0); Immature Granulocytes % 17.3 %; Immature Granulocytes Absolute 0.23 #; Lymphocytes # 0.8 10*3/uL (1.4-4.0); Lymphocytes % 60.2 % (21.3-54.2); Mean Corpuscular Volume 94.6 FL (87-102); Mean Platelet Volume 9.1 FL (9.6-12.0); Monocytes % 1.5 % (1.7-12.7); Neutrophils % 17.2 % (38.7-73.9); Platelet Count 91 T/CUMM (130-400); Red Blood Count 2.94 MC/CUMM (3.8-5.5); Red Cell Distribution Width 13.3 % (9.3-17.3); White Blood Count 1.3 T/CUMM (4-12)
[2021-09-08] MEDS: MEROPENEM 500 MG in SODIUM CHLORIDE 0.9% 100 ML IV SCH ×2 (09:23→21:02)
[2021-09-08 09:24] LABS: Anisocytosis Slight; Eosinophils 7 % (0-10); Lymphocytes 59 % (20-55); Platelet Estimate Decreased; Segmented Neutrophils 32 % (50-85); Total Cells Counted 100
[2021-09-08] MEDS: INSULIN LISPRO 100 UNIT/ML SUBCUT SCH ×4 (09:24→20:50)
[2021-09-08 09:27] LABS: Calcium 9.2 MG/DL (8.5-10.1); Osmolality,Calculated 294.7 MOS/KG (273-304); Potassium 3.8 MMOL/L (3.5-5.1)
[2021-09-08] MEDS: NYSTATIN 500,000 UNIT/5 ML UDCUP PO SCH ×4 (10:23→20:49)
[2021-09-08] MEDS: PANTOPRAZOLE 40 MG VIAL IV SCH (10:23)
[2021-09-08] MEDS: ALBUTEROL/IPRATROPIUM 3 ML NEB RESP TX SCH ×2 (13:07→19:34)
[2021-09-08] MEDS: DOXYCYCLINE HYCLATE INJ 100 MG in SODIUM CHLORIDE 0.9% 100 ML IV SCH (14:17)
[2021-09-08] MEDS: ZALEPLON 5 MG CAPSULE PO SCH (20:49)
[2021-09-08] MEDS: FLUCONAZOLE INJ 200 MG/100 ML PREMIX IV SCH (23:12)
[2021-09-09] MEDS: ALBUTEROL/IPRATROPIUM 3 ML NEB RESP TX SCH ×4 (01:32→20:01)
[2021-09-09] MEDS: DOXYCYCLINE HYCLATE INJ 100 MG in SODIUM CHLORIDE 0.9% 100 ML IV SCH ×2 (02:22→15:26)
[2021-09-09 05:45] LABS: Eosinophils # 0.1 10*3/uL (0.0-0.87); Eosinophils % 3.3 % (0.00-10.9); Hematocrit 27.3 VOL% (35.7-47.0); Hemoglobin 8.6 GM/DL (12.0-16.0); Lymphocytes # 0.8 10*3/uL (1.4-4.0); Lymphocytes % 54.3 % (21.3-54.2); Mean Corpuscular HGB Conc 31.5 GM/DL (32-36); Mean Corpuscular Volume 95.8 FL (87-102); Mean Platelet Volume 9.8 FL (9.6-12.0); Monocytes % 1.3 % (1.7-12.7); Neutrophils % 41.1 % (38.7-73.9); Platelet Count 70 T/CUMM (130-400); Red Blood Count 2.85 MC/CUMM (3.8-5.5); Red Cell Distribution Width 13.2 % (9.3-17.3); White Blood Count 1.5 T/CUMM (4-12)
[2021-09-09 05:57] LABS: Osmolality,Calculated 294.4 MOS/KG (273-304); Potassium 3.4 MMOL/L (3.5-5.1)
[2021-09-09 06:29] LABS: Eosinophils 1 % (0-10); Hypochromia 2+; Lymphocytes 54 % (20-55); Platelet Estimate Decreased; Segmented Neutrophils 42 % (50-85); Total Cells Counted 100
[2021-09-09] MEDS: SODIUM CHLORIDE 0.9% 1,000 ML IV SCH (06:53)
[2021-09-09] MEDS ORDERED: MAGNESIUM SULF RIDER 4 GM/100 ML PREMIX IV ONE (07:38)
[2021-09-09] MEDS: INSULIN LISPRO 100 UNIT/ML SUBCUT SCH ×4 (07:54→22:48)
[2021-09-09] MEDS: MEROPENEM 500 MG in SODIUM CHLORIDE 0.9% 100 ML IV SCH ×2 (09:18→21:40)
[2021-09-09] MEDS: NYSTATIN 500,000 UNIT/5 ML UDCUP PO SCH ×5 (09:18→21:39)
[2021-09-09] MEDS ORDERED: GABAPENTIN 300 MG CAPSULE PO PRN (11:49)
[2021-09-09] MEDS: DIVALPROEX 250 MG TABLET PO SCH ×2 (13:25→21:39)
[2021-09-09] MEDS: carvediloL 12.5 MG TABLET PO SCH ×2 (13:25→21:39)
[2021-09-09] MEDS: cloNIDine 0.1 MG TABLET PO SCH ×2 (13:25→21:39)
[2021-09-09] MEDS: DIGOXIN 0.125 MG TABLET PO SCH (13:25)
[2021-09-09] MEDS: AMITRIPTYLINE 50 MG TABLET PO SCH ×2 (13:25→21:39)
[2021-09-09] MEDS: MEMANTINE 10 MG TABLET PO SCH ×2 (13:26→21:39)
[2021-09-09] MEDS: DONEPEZIL 10 MG TABLET PO SCH ×2 (13:26→21:39)
[2021-09-09] MEDS: DEXTROSE 5% 1,000 ML IV SCH (13:35)
[2021-09-09] MEDS: ZALEPLON 5 MG CAPSULE PO SCH (21:39)
[2021-09-09] MEDS: FLUCONAZOLE INJ 200 MG/100 ML PREMIX IV SCH (22:49)
[2021-09-10] MEDS: ALBUTEROL/IPRATROPIUM 3 ML NEB RESP TX SCH ×4 (01:39→19:40)
[2021-09-10] MEDS: DOXYCYCLINE HYCLATE INJ 100 MG in SODIUM CHLORIDE 0.9% 100 ML IV SCH ×2 (04:42→14:05)
[2021-09-10 05:15] LABS: Eosinophils # 0.1 10*3/uL (0.0-0.87); Eosinophils % 5.7 % (0.00-10.9); Hematocrit 24.5 VOL% (35.7-47.0); Hemoglobin 7.7 GM/DL (12.0-16.0); Immature Granulocytes % 0.6 %; Immature Granulocytes Absolute 0.01 #; Lymphocytes % 63.9 % (21.3-54.2); Mean Corpuscular HGB Conc 31.4 GM/DL (32-36); Mean Corpuscular Volume 94.6 FL (87-102); Mean Platelet Volume 9.6 FL (9.6-12.0); Monocytes % 1.9 % (1.7-12.7); Neutrophils % 27.9 % (38.7-73.9); Platelet Count 53 T/CUMM (130-400); Red Blood Count 2.59 MC/CUMM (3.8-5.5); Red Cell Distribution Width 13.2 % (9.3-17.3); White Blood Count 1.6 T/CUMM (4-12)
[2021-09-10 05:39] LABS: Eosinophils 6 % (0-10); Hypochromia 1+; Lymphocytes 64 % (20-55); Microcytosis 1+; Nucleated Red Blood Cells 1 (0-5); Platelet Estimate Decreased; Segmented Neutrophils 28 % (50-85); Total Cells Counted 100
[2021-09-10 05:42] LABS: Calcium 8.6 MG/DL (8.5-10.1); Potassium 3.1 MMOL/L (3.5-5.1)
[2021-09-10] MEDS: LEVOTHYROXINE 25 MCG TABLET PO SCH (06:47)
[2021-09-10] MEDS: DEXTROSE 5% 1,000 ML IV SCH ×3 (06:48→18:27)
[2021-09-10] MEDS: carvediloL 12.5 MG TABLET PO SCH ×2 (09:29→22:56)
[2021-09-10] MEDS: DONEPEZIL 10 MG TABLET PO SCH ×2 (09:29→22:56)
[2021-09-10] MEDS: cloNIDine 0.1 MG TABLET PO SCH ×2 (09:29→22:56)
[2021-09-10] MEDS: DIVALPROEX 250 MG TABLET PO SCH ×2 (09:29→22:55)
[2021-09-10] MEDS: AMITRIPTYLINE 50 MG TABLET PO SCH ×2 (09:29→22:56)
[2021-09-10] MEDS: MEMANTINE 10 MG TABLET PO SCH ×2 (09:29→22:56)
[2021-09-10] MEDS: NYSTATIN 500,000 UNIT/5 ML UDCUP PO SCH ×5 (09:31→22:55)
[2021-09-10] MEDS: INSULIN LISPRO 100 UNIT/ML SUBCUT SCH ×4 (09:32→23:01)
[2021-09-10] MEDS: MEROPENEM 500 MG in SODIUM CHLORIDE 0.9% 100 ML IV SCH ×2 (09:35→23:03)
[2021-09-10] MEDS: FOLIC ACID 1 MG TABLET PO SCH (11:48)
[2021-09-10] MEDS: FERROUS SULFATE 325 MG TABLET PO SCH (11:48)
[2021-09-10] MEDS: DIGOXIN 0.125 MG TABLET PO SCH (14:04)
[2021-09-10] MEDS: MENTHOL/ZINC OXIDE OINT 71 GM JAR TOP SCH ×2 (17:29→22:55)
[2021-09-10] MEDS: FLUCONAZOLE INJ 200 MG/100 ML PREMIX IV SCH (22:00)
[2021-09-10] MEDS: ZALEPLON 5 MG CAPSULE PO SCH (22:55)
[2021-09-11] MEDS: ALBUTEROL/IPRATROPIUM 3 ML NEB RESP TX SCH ×4 (00:49→20:14)
[2021-09-11] MEDS: DOXYCYCLINE HYCLATE INJ 100 MG in SODIUM CHLORIDE 0.9% 100 ML IV SCH ×2 (02:43→14:32)
[2021-09-11 05:20] LABS: Basophils % 0.6 % (0.0-0.8); Eosinophils # 0.2 10*3/uL (0.0-0.87); Eosinophils % 9.9 % (0.00-10.9); Hematocrit 23.2 VOL% (35.7-47.0); Hemoglobin 7.4 GM/DL (12.0-16.0); Immature Granulocytes % 0.6 %; Immature Granulocytes Absolute 0.01 #; Lymphocytes # 1.2 10*3/uL (1.4-4.0); Lymphocytes % 71.4 % (21.3-54.2); Mean Corpuscular HGB Conc 31.9 GM/DL (32-36); Mean Corpuscular Volume 93.2 FL (87-102); Mean Platelet Volume 10.8 FL (9.6-12.0); Monocytes % 3.7 % (1.7-12.7); Neutrophils % 13.8 % (38.7-73.9); Platelet Count 42 T/CUMM (130-400); Red Blood Count 2.49 MC/CUMM (3.8-5.5); Red Cell Distribution Width 13.2 % (9.3-17.3); White Blood Count 1.6 T/CUMM (4-12)
[2021-09-11 05:48] LABS: Atypical Lymphocytes Few; Eosinophils 13 % (0-10); Hypochromia 1+; Lymphocytes 70 % (20-55); Microcytosis 1+; Platelet Estimate Decreased; Segmented Neutrophils 15 % (50-85); Total Cells Counted 100
[2021-09-11 05:53] LABS: Calcium 8.1 MG/DL (8.5-10.1); Osmolality,Calculated 278.5 MOS/KG (273-304); Potassium 3.2 MMOL/L (3.5-5.1)
[2021-09-11] MEDS: LEVOTHYROXINE 25 MCG TABLET PO SCH (06:18)
[2021-09-11] MEDS: INSULIN LISPRO 100 UNIT/ML SUBCUT SCH ×4 (07:41→22:25)
[2021-09-11] MEDS: DEXTROSE 5% 1,000 ML IV SCH (08:33)
[2021-09-11] MEDS: MEROPENEM 500 MG in SODIUM CHLORIDE 0.9% 100 ML IV SCH ×2 (09:49→20:42)
[2021-09-11] MEDS: DONEPEZIL 10 MG TABLET PO SCH ×2 (09:51→20:41)
[2021-09-11] MEDS: DIVALPROEX 250 MG TABLET PO SCH ×2 (09:51→20:41)
[2021-09-11] MEDS: LEUCOVORIN TAB 5 MG TABLET PO SCH ×3 (09:51→20:40)
[2021-09-11] MEDS: MEMANTINE 10 MG TABLET PO SCH ×2 (09:51→20:41)
[2021-09-11] MEDS: cloNIDine 0.1 MG TABLET PO SCH ×2 (09:51→20:41)
[2021-09-11] MEDS: FOLIC ACID 1 MG TABLET PO SCH (09:51)
[2021-09-11] MEDS: FERROUS SULFATE 325 MG TABLET PO SCH (09:51)
[2021-09-11] MEDS: carvediloL 12.5 MG TABLET PO SCH ×2 (09:52→20:42)
[2021-09-11] MEDS: MENTHOL/ZINC OXIDE OINT 71 GM JAR TOP SCH ×2 (09:52→20:42)
[2021-09-11] MEDS: AMITRIPTYLINE 50 MG TABLET PO SCH ×2 (09:59→20:41)
[2021-09-11] MEDS: NYSTATIN 500,000 UNIT/5 ML UDCUP PO SCH ×4 (09:59→20:42)
[2021-09-11] MEDS: DIGOXIN 0.125 MG TABLET PO SCH (14:34)
[2021-09-11] MEDS: ZALEPLON 5 MG CAPSULE PO SCH (20:41)
[2021-09-11] MEDS: FLUCONAZOLE INJ 200 MG/100 ML PREMIX IV SCH (22:24)
[2021-09-12] MEDS: ALBUTEROL/IPRATROPIUM 3 ML NEB RESP TX SCH ×4 (00:42→19:30)
[2021-09-12] MEDS: DOXYCYCLINE HYCLATE INJ 100 MG in SODIUM CHLORIDE 0.9% 100 ML IV SCH ×2 (01:12→14:48)
[2021-09-12] MEDS: LEUCOVORIN TAB 5 MG TABLET PO SCH ×4 (01:13→20:10)
[2021-09-12 05:02] LABS: Basophils % 0.7 % (0.0-0.8); Eosinophils # 0.2 10*3/uL (0.0-0.87); Eosinophils % 12.8 % (0.00-10.9); Hematocrit 22.4 VOL% (35.7-47.0); Hemoglobin 7.3 GM/DL (12.0-16.0); Immature Granulocytes % 0.7 %; Immature Granulocytes Absolute 0.01 #; Lymphocytes # 0.9 10*3/uL (1.4-4.0); Lymphocytes % 62.4 % (21.3-54.2); Mean Corpuscular HGB Conc 32.6 GM/DL (32-36); Mean Corpuscular Volume 92.2 FL (87-102); Mean Platelet Volume 10.3 FL (9.6-12.0); Neutrophils % 17.4 % (38.7-73.9); Red Blood Count 2.43 MC/CUMM (3.8-5.5); Red Cell Distribution Width 13.2 % (9.3-17.3); White Blood Count 1.5 T/CUMM (4-12)
[2021-09-12 05:06] LABS: Platelet Count 34 T/CUMM (130-400)
[2021-09-12 05:24] LABS: Eosinophils 16 % (0-10); Hypochromia Slight; Lymphocytes 58 % (20-55); Platelet Estimate Decreased; Segmented Neutrophils 19 % (50-85); Total Cells Counted 100
[2021-09-12 05:48] LABS: Calcium 8.6 MG/DL (8.5-10.1); Osmolality,Calculated 277.7 MOS/KG (273-304); Potassium 3.2 MMOL/L (3.5-5.1)
[2021-09-12] MEDS: LEVOTHYROXINE 25 MCG TABLET PO SCH (06:46)
[2021-09-12] MEDS ORDERED: POLYETHYLENE GLYCOL POWDER 17 GM PACK PO PRN (08:09)
[2021-09-12] MEDS ORDERED: BISACODYL 5 MG TABLET PO ONE (08:10)
[2021-09-12] MEDS: INSULIN LISPRO 100 UNIT/ML SUBCUT SCH ×4 (08:11→20:11)
[2021-09-12] MEDS ORDERED: BISACODYL 5 MG TABLET PO SCH (09:00)
[2021-09-12] MEDS: MEROPENEM 500 MG in SODIUM CHLORIDE 0.9% 100 ML IV SCH (10:52)
[2021-09-12] MEDS: AMITRIPTYLINE 50 MG TABLET PO SCH ×2 (10:54→20:10)
[2021-09-12] MEDS: cloNIDine 0.1 MG TABLET PO SCH ×2 (10:54→20:10)
[2021-09-12] MEDS: carvediloL 12.5 MG TABLET PO SCH ×2 (10:55→20:10)
[2021-09-12] MEDS: MEMANTINE 10 MG TABLET PO SCH ×2 (10:55→20:10)
[2021-09-12] MEDS: DIVALPROEX 250 MG TABLET PO SCH ×2 (10:55→20:11)
[2021-09-12] MEDS: FOLIC ACID 1 MG TABLET PO SCH (10:55)
[2021-09-12] MEDS: MENTHOL/ZINC OXIDE OINT 71 GM JAR TOP SCH ×2 (10:56→20:11)
[2021-09-12] MEDS: FERROUS SULFATE 325 MG TABLET PO SCH (10:56)
[2021-09-12] MEDS: DONEPEZIL 10 MG TABLET PO SCH ×2 (10:56→20:11)
[2021-09-12] MEDS: NYSTATIN 500,000 UNIT/5 ML UDCUP PO SCH ×4 (10:56→20:11)
[2021-09-12] MEDS: FILGRASTIM-SNDZ 480 MCG/0.8 ML SYRINGE SUBCUT SCH (11:01)
[2021-09-12 12:40] LABS: Bacteria,Urine Occasional /HPF (Few); Bilirubin,Urine Negative (Negative); Blood, Urine Negative (Negative); Glucose,Urine (UA) 50 mg/dL (Negative); Ketones,Urine Negative (Negative); Mucus,Urine Occasional /LPF (Occasional); Nitrite,Urine Negative (Negative); Protein,Urine 30 MG/DL; RBC,Urine 1 /HPF (0-4); Squamous Epithelial Cell,Urine Occasional /HPF (0-10); Urine Appearance CLEAR (Clear); Urine Color Yellow (Yellow); Urine Specific Gravity 1.006 (1.001-1.035); Urine Urobilinogen < 2.0 EU/DL (<2.0)
[2021-09-12] MEDS: DIGOXIN 0.125 MG TABLET PO SCH (14:49)
[2021-09-12] MEDS: ZALEPLON 5 MG CAPSULE PO SCH (20:10)
[2021-09-12] MEDS: FLUCONAZOLE INJ 200 MG/100 ML PREMIX IV SCH (22:12)
[2021-09-13] MEDS: ALBUTEROL/IPRATROPIUM 3 ML NEB RESP TX SCH ×4 (00:42→20:14)
[2021-09-13] MEDS: DOXYCYCLINE HYCLATE INJ 100 MG in SODIUM CHLORIDE 0.9% 100 ML IV SCH ×2 (02:14→13:42)
[2021-09-13] MEDS: LEUCOVORIN TAB 5 MG TABLET PO SCH ×4 (02:14→20:39)
[2021-09-13] MEDS: LEVOTHYROXINE 25 MCG TABLET PO SCH (05:30)
[2021-09-13] MEDS: FERROUS SULFATE 325 MG TABLET PO SCH (10:00)
[2021-09-13] MEDS: FOLIC ACID 1 MG TABLET PO SCH (10:00)
[2021-09-13] MEDS: cloNIDine 0.1 MG TABLET PO SCH ×2 (10:00→20:39)
[2021-09-13] MEDS: DONEPEZIL 10 MG TABLET PO SCH ×2 (10:00→20:39)
[2021-09-13] MEDS: AMITRIPTYLINE 50 MG TABLET PO SCH ×2 (10:00→20:39)
[2021-09-13] MEDS: NYSTATIN 500,000 UNIT/5 ML UDCUP PO SCH ×4 (10:00→20:41)
[2021-09-13] MEDS: MEMANTINE 10 MG TABLET PO SCH ×2 (10:00→20:40)
[2021-09-13] MEDS: DIVALPROEX 250 MG TABLET PO SCH ×2 (10:00→20:39)
[2021-09-13] MEDS: MENTHOL/ZINC OXIDE OINT 71 GM JAR TOP SCH ×2 (10:01→20:40)
[2021-09-13] MEDS: carvediloL 12.5 MG TABLET PO SCH ×2 (10:06→20:40)
[2021-09-13] MEDS: FILGRASTIM-SNDZ 480 MCG/0.8 ML SYRINGE SUBCUT SCH (10:07)
[2021-09-13] MEDS: INSULIN LISPRO 100 UNIT/ML SUBCUT SCH ×4 (10:17→20:40)
[2021-09-13] MEDS: DIGOXIN 0.125 MG TABLET PO SCH (13:47)
[2021-09-13] MEDS: ZALEPLON 5 MG CAPSULE PO SCH (20:39)
[2021-09-13] MEDS: POLYETHYLENE GLYCOL POWDER 17 GM PACK PO SCH (20:40)
[2021-09-14] MEDS: ALBUTEROL/IPRATROPIUM 3 ML NEB RESP TX SCH ×4 (01:35→19:29)
[2021-09-14] MEDS: LEUCOVORIN TAB 5 MG TABLET PO SCH ×4 (02:30→20:48)
[2021-09-14] MEDS: LEVOTHYROXINE 25 MCG TABLET PO SCH (06:06)
[2021-09-14 06:26] LABS: Basophils % 1.1 % (0.0-0.8); Eosinophils # 0.2 10*3/uL (0.0-0.87); Eosinophils % 9.7 % (0.00-10.9); Hematocrit 23.5 VOL% (35.7-47.0); Hemoglobin 7.6 GM/DL (12.0-16.0); Immature Granulocytes % 7.4 %; Immature Granulocytes Absolute 0.13 #; Lymphocytes % 57.4 % (21.3-54.2); Mean Corpuscular HGB Conc 32.3 GM/DL (32-36); Mean Corpuscular Volume 92.2 FL (87-102); Mean Platelet Volume 12.4 FL (9.6-12.0); Monocytes % 15.9 % (1.7-12.7); Neutrophils % 8.5 % (38.7-73.9); Red Blood Count 2.55 MC/CUMM (3.8-5.5); Red Cell Distribution Width 13.5 % (9.3-17.3); White Blood Count 1.8 T/CUMM (4-12)
[2021-09-14 06:36] LABS: Calcium 8.9 MG/DL (8.5-10.1); Osmolality,Calculated 279.7 MOS/KG (273-304); Potassium 3.2 MMOL/L (3.5-5.1)
[2021-09-14 06:56] LABS: Folate > 24.00 NG/ML (5.38-24.0); Vitamin B12 527 PG/ML (211-911)
[2021-09-14 07:12] LABS: Platelet Count 62 T/CUMM (130-400)
[2021-09-14 08:49] LABS: Atypical Lymphocytes Few; Eosinophils 15 % (0-10); Lymphocytes 56 % (20-55); Nucleated Red Blood Cells 1 (0-5); Platelet Estimate Decreased; Segmented Neutrophils 12 % (50-85); Total Cells Counted 100
[2021-09-14 08:50] LABS: Polychromasia Slight
[2021-09-14] MEDS: cloNIDine 0.1 MG TABLET PO SCH ×2 (09:27→20:48)
[2021-09-14] MEDS: AMITRIPTYLINE 50 MG TABLET PO SCH ×2 (09:28→20:48)
[2021-09-14] MEDS: FOLIC ACID 1 MG TABLET PO SCH (09:28)
[2021-09-14] MEDS: DONEPEZIL 10 MG TABLET PO SCH ×2 (09:28→20:48)
[2021-09-14] MEDS: MEMANTINE 10 MG TABLET PO SCH ×2 (09:29→20:48)
[2021-09-14] MEDS: DIVALPROEX 250 MG TABLET PO SCH ×2 (09:29→20:48)
[2021-09-14] MEDS: NYSTATIN 500,000 UNIT/5 ML UDCUP PO SCH ×4 (09:29→20:49)
[2021-09-14] MEDS: carvediloL 12.5 MG TABLET PO SCH ×2 (09:29→20:48)
[2021-09-14] MEDS: FILGRASTIM-SNDZ 480 MCG/0.8 ML SYRINGE SUBCUT SCH (09:31)
[2021-09-14] MEDS: INSULIN LISPRO 100 UNIT/ML SUBCUT SCH ×4 (09:36→20:49)
[2021-09-14] MEDS: POTASSIUM BICARB EFFERVESCENT 25 MEQ TAB.EFF PO SCH ×2 (09:46→20:47)
[2021-09-14] MEDS: MENTHOL/ZINC OXIDE OINT 71 GM JAR TOP SCH ×2 (09:46→20:49)
[2021-09-14] MEDS: POLYETHYLENE GLYCOL POWDER 17 GM PACK PO SCH ×2 (09:46→20:49)
[2021-09-14] MEDS: DIGOXIN 0.125 MG TABLET PO SCH (14:08)
[2021-09-14] MEDS: CLOTRIMAZOLE 10 MG TROCHE PO SCH ×2 (17:02→20:47)
[2021-09-14] MEDS: ZALEPLON 5 MG CAPSULE PO SCH (20:47)
[2021-09-15] MEDS: ALBUTEROL/IPRATROPIUM 3 ML NEB RESP TX SCH ×4 (00:28→20:54)
[2021-09-15] MEDS: LEUCOVORIN TAB 5 MG TABLET PO SCH ×4 (02:27→21:47)
[2021-09-15] MEDS: LEVOTHYROXINE 25 MCG TABLET PO SCH (05:52)
[2021-09-15 06:31] LABS: Basophils % 0.3 % (0.0-0.8); Eosinophils # 0.2 10*3/uL (0.0-0.87); Eosinophils % 5.2 % (0.00-10.9); Hematocrit 22.3 VOL% (35.7-47.0); Hemoglobin 7.1 GM/DL (12.0-16.0); Immature Granulocytes % 7.8 %; Immature Granulocytes Absolute 0.24 #; Lymphocytes # 1.7 10*3/uL (1.4-4.0); Lymphocytes % 56.7 % (21.3-54.2); Mean Corpuscular HGB Conc 31.8 GM/DL (32-36); Mean Corpuscular Volume 92.5 FL (87-102); Mean Platelet Volume 11.8 FL (9.6-12.0); Monocytes % 13.4 % (1.7-12.7); NRBC # 0.03 10*3/uL; Neutrophils % 16.6 % (38.7-73.9); Platelet Count 105 T/CUMM (130-400); Red Blood Count 2.41 MC/CUMM (3.8-5.5); Red Cell Distribution Width 13.7 % (9.3-17.3); White Blood Count 3.1 T/CUMM (4-12)
[2021-09-15 06:57] LABS: Calcium 8.8 MG/DL (8.5-10.1); Osmolality,Calculated 284.3 MOS/KG (273-304); Potassium 3.2 MMOL/L (3.5-5.1)
[2021-09-15 06:58] LABS: Atypical Lymphocytes Few; Eosinophils 2 % (0-10); Lymphocytes 54 % (20-55); Platelet Estimate Adequate; Segmented Neutrophils 21 % (50-85); Total Cells Counted 100
[2021-09-15 06:59] LABS: Hypochromia Slight
[2021-09-15] MEDS: INSULIN LISPRO 100 UNIT/ML SUBCUT SCH ×4 (09:00→21:48)
[2021-09-15] MEDS: AMITRIPTYLINE 50 MG TABLET PO SCH ×2 (09:01→21:48)
[2021-09-15] MEDS: CLOTRIMAZOLE 10 MG TROCHE PO SCH ×4 (09:01→21:47)
[2021-09-15] MEDS: FOLIC ACID 1 MG TABLET PO SCH (09:01)
[2021-09-15] MEDS: DONEPEZIL 10 MG TABLET PO SCH ×2 (09:01→21:47)
[2021-09-15] MEDS: cloNIDine 0.1 MG TABLET PO SCH ×2 (09:01→21:47)
[2021-09-15] MEDS: DIVALPROEX 250 MG TABLET PO SCH ×2 (09:01→21:47)
[2021-09-15] MEDS: POTASSIUM BICARB EFFERVESCENT 25 MEQ TAB.EFF PO SCH ×2 (09:02→21:47)
[2021-09-15] MEDS: carvediloL 12.5 MG TABLET PO SCH ×2 (09:02→21:46)
[2021-09-15] MEDS: MENTHOL/ZINC OXIDE OINT 71 GM JAR TOP SCH ×2 (09:02→21:48)
[2021-09-15] MEDS: POLYETHYLENE GLYCOL POWDER 17 GM PACK PO SCH ×2 (09:02→21:49)
[2021-09-15] MEDS: NYSTATIN 500,000 UNIT/5 ML UDCUP PO SCH ×4 (09:02→21:48)
[2021-09-15] MEDS: MEMANTINE 10 MG TABLET PO SCH ×2 (09:02→21:47)
[2021-09-15] MEDS: FILGRASTIM-SNDZ 480 MCG/0.8 ML SYRINGE SUBCUT SCH (09:03)
[2021-09-15] MEDS: DIGOXIN 0.125 MG TABLET PO SCH (12:16)
[2021-09-16] MEDS: ALBUTEROL/IPRATROPIUM 3 ML NEB RESP TX SCH ×4 (01:00→20:50)
[2021-09-16] MEDS: LEUCOVORIN TAB 5 MG TABLET PO SCH ×4 (02:51→22:15)
[2021-09-16 06:11] LABS: Basophils % 0.4 % (0.0-0.8); Eosinophils # 0.2 10*3/uL (0.0-0.87); Eosinophils % 3.9 % (0.00-10.9); Hematocrit 22.6 VOL% (35.7-47.0); Hemoglobin 7.1 GM/DL (12.0-16.0); Immature Granulocytes % 38.6 %; Immature Granulocytes Absolute 1.98 #; Lymphocytes # 1.7 10*3/uL (1.4-4.0); Lymphocytes % 32.4 % (21.3-54.2); Mean Corpuscular HGB Conc 31.4 GM/DL (32-36); Mean Platelet Volume 11.5 FL (9.6-12.0); NRBC # 0.05 10*3/uL; Neutrophils % 9.7 % (38.7-73.9); Red Blood Count 2.43 MC/CUMM (3.8-5.5); Red Cell Distribution Width 13.8 % (9.3-17.3)
[2021-09-16 06:17] LABS: Platelet Count 141 T/CUMM (130-400); White Blood Count 5.1 T/CUMM (4-12)
[2021-09-16 06:26] LABS: Calcium 8.9 MG/DL (8.5-10.1); Osmolality,Calculated 286.1 MOS/KG (273-304); Potassium 3.2 MMOL/L (3.5-5.1)
[2021-09-16 06:43] LABS: Band Neutrophils 5 % (0-10); Eosinophils 5 % (0-10); Hypochromia 1+; Lymphocytes 33 % (20-55); Metamyelocytes 4 %; Myelocytes 3 %; Segmented Neutrophils 30 % (50-85); Total Cells Counted 100
[2021-09-16 06:44] LABS: Microcytosis 1+; Platelet Estimate Adequate
[2021-09-16] MEDS: LEVOTHYROXINE 25 MCG TABLET PO SCH (06:45)
[2021-09-16] MEDS: cloNIDine 0.1 MG TABLET PO SCH ×2 (10:53→22:00)
[2021-09-16] MEDS: DONEPEZIL 10 MG TABLET PO SCH ×2 (10:53→22:00)
[2021-09-16] MEDS: MEMANTINE 10 MG TABLET PO SCH ×2 (10:53→22:00)
[2021-09-16] MEDS: FOLIC ACID 1 MG TABLET PO SCH (10:53)
[2021-09-16] MEDS: LINACLOTIDE 145 MCG CAPSULE PO SCH (10:54)
[2021-09-16] MEDS: CLOTRIMAZOLE 10 MG TROCHE PO SCH ×3 (10:54→22:00)
[2021-09-16] MEDS: carvediloL 12.5 MG TABLET PO SCH ×2 (10:54→22:00)
[2021-09-16] MEDS: AMITRIPTYLINE 50 MG TABLET PO SCH ×2 (10:54→22:00)
[2021-09-16] MEDS: DIVALPROEX 250 MG TABLET PO SCH ×2 (10:54→22:00)
[2021-09-16] MEDS: POTASSIUM BICARB EFFERVESCENT 25 MEQ TAB.EFF PO SCH ×3 (10:55→21:59)
[2021-09-16] MEDS: MENTHOL/ZINC OXIDE OINT 71 GM JAR TOP SCH ×2 (10:55→22:01)
[2021-09-16] MEDS: NYSTATIN 500,000 UNIT/5 ML UDCUP PO SCH ×4 (10:55→21:59)
[2021-09-16] MEDS: INSULIN LISPRO 100 UNIT/ML SUBCUT SCH ×4 (11:04→22:02)
[2021-09-16] MEDS: POLYETHYLENE GLYCOL POWDER 17 GM PACK PO SCH ×2 (11:05→22:01)
[2021-09-16] MEDS: FILGRASTIM-SNDZ 480 MCG/0.8 ML SYRINGE SUBCUT SCH (11:15)
[2021-09-16] MEDS: DIGOXIN 0.125 MG TABLET PO SCH ×2 (17:02→17:04)
[2021-09-17] MEDS: LEUCOVORIN TAB 5 MG TABLET PO SCH ×2 (01:17→10:25)
[2021-09-17] MEDS: ALBUTEROL/IPRATROPIUM 3 ML NEB RESP TX SCH ×4 (01:43→19:10)
[2021-09-17] MEDS: LEVOTHYROXINE 25 MCG TABLET PO SCH (06:32)
[2021-09-17 07:55] LABS: Basophils # 0.1 10*3/uL (0.0-0.2); Basophils % 0.9 % (0.0-0.8); Eosinophils # 0.2 10*3/uL (0.0-0.87); Eosinophils % 1.9 % (0.00-10.9); Hemoglobin 7.1 GM/DL (12.0-16.0); Immature Granulocytes % 16.3 %; Immature Granulocytes Absolute 1.84 #; Lymphocytes # 2.1 10*3/uL (1.4-4.0); Lymphocytes % 18.4 % (21.3-54.2); Mean Corpuscular HGB Conc 32.3 GM/DL (32-36); Mean Corpuscular Volume 93.2 FL (87-102); Mean Platelet Volume 11.5 FL (9.6-12.0); Monocytes % 19.5 % (1.7-12.7); NRBC # 0.05 10*3/uL; Platelet Count 138 T/CUMM (130-400); Red Blood Count 2.36 MC/CUMM (3.8-5.5); Red Cell Distribution Width 14.1 % (9.3-17.3); White Blood Count 11.3 T/CUMM (4-12)
[2021-09-17 08:21] LABS: Calcium 8.8 MG/DL (8.5-10.1); Osmolality,Calculated 282.3 MOS/KG (273-304); Potassium 3.3 MMOL/L (3.5-5.1)
[2021-09-17 08:26] LABS: Anisocytosis 1+; Band Neutrophils 21 % (0-10); Eosinophils 1 % (0-10); Lymphocytes 25 % (20-55); Metamyelocytes 4 %; Myelocytes 3 %; Ovalocytes Few; Platelet Estimate Adequate; Segmented Neutrophils 35 % (50-85); Total Cells Counted 100
[2021-09-17 08:27] LABS: Macrocytosis 1+; Smudge Cells Few
[2021-09-17] MEDS: DONEPEZIL 10 MG TABLET PO SCH ×2 (09:54→21:54)
[2021-09-17] MEDS: AMITRIPTYLINE 50 MG TABLET PO SCH ×2 (09:54→21:54)
[2021-09-17] MEDS: DIVALPROEX 250 MG TABLET PO SCH ×2 (09:54→21:54)
[2021-09-17] MEDS: CLOTRIMAZOLE 10 MG TROCHE PO SCH ×4 (09:55→21:54)
[2021-09-17] MEDS: cloNIDine 0.1 MG TABLET PO SCH ×2 (09:56→21:54)
[2021-09-17] MEDS: FOLIC ACID 1 MG TABLET PO SCH (09:56)
[2021-09-17] MEDS: carvediloL 12.5 MG TABLET PO SCH ×2 (09:56→21:54)
[2021-09-17] MEDS: LINACLOTIDE 145 MCG CAPSULE PO SCH (09:56)
[2021-09-17] MEDS: MEMANTINE 10 MG TABLET PO SCH ×2 (09:57→21:54)
[2021-09-17] MEDS: MENTHOL/ZINC OXIDE OINT 71 GM JAR TOP SCH ×2 (09:58→21:55)
[2021-09-17] MEDS: NYSTATIN 500,000 UNIT/5 ML UDCUP PO SCH ×4 (09:58→21:54)
[2021-09-17] MEDS: POTASSIUM BICARB EFFERVESCENT 25 MEQ TAB.EFF PO SCH ×2 (09:59→18:15)
[2021-09-17] MEDS: INSULIN LISPRO 100 UNIT/ML SUBCUT SCH ×4 (09:59→21:55)
[2021-09-17] MEDS: POLYETHYLENE GLYCOL POWDER 17 GM PACK PO SCH ×2 (10:00→21:56)
[2021-09-17] MEDS: FILGRASTIM-SNDZ 480 MCG/0.8 ML SYRINGE SUBCUT SCH (10:25)
[2021-09-17] MEDS: DIGOXIN 0.125 MG TABLET PO SCH (12:16)
[2021-09-17] MEDS: POTASSIUM BICARB EFFERVESCENT 20 MEQ TAB.EFF PO SCH ×2 (16:28→21:54)
[2021-09-18] MEDS: ALBUTEROL/IPRATROPIUM 3 ML NEB RESP TX SCH ×4 (00:28→21:07)
[2021-09-18] MEDS: LEVOTHYROXINE 25 MCG TABLET PO SCH (05:45)
[2021-09-18 07:11] LABS: Basophils # 0.1 10*3/uL (0.0-0.2); Basophils % 0.7 % (0.0-0.8); Eosinophils # 0.2 10*3/uL (0.0-0.87); Eosinophils % 1.1 % (0.00-10.9); Hemoglobin 7.2 GM/DL (12.0-16.0); Immature Granulocytes % 20.7 %; Immature Granulocytes Absolute 2.93 #; Lymphocytes # 2.7 10*3/uL (1.4-4.0); Lymphocytes % 19.2 % (21.3-54.2); Mean Corpuscular HGB Conc 31.3 GM/DL (32-36); Mean Corpuscular Volume 94.3 FL (87-102); Mean Platelet Volume 11.3 FL (9.6-12.0); Monocytes % 14.6 % (1.7-12.7); NRBC # 0.04 10*3/uL; Neutrophils % 43.7 % (38.7-73.9); Platelet Count 138 T/CUMM (130-400); Red Blood Count 2.44 MC/CUMM (3.8-5.5); Red Cell Distribution Width 14.1 % (9.3-17.3); White Blood Count 14.1 T/CUMM (4-12)
[2021-09-18 07:25] LABS: Calcium 8.8 MG/DL (8.5-10.1); Osmolality,Calculated 282.3 MOS/KG (273-304); Potassium 3.3 MMOL/L (3.5-5.1)
[2021-09-18 07:38] LABS: Band Neutrophils 20 % (0-10); Eosinophils 3 % (0-10); Lymphocytes 26 % (20-55); Metamyelocytes 2 %; Myelocytes 1 %; Nucleated Red Blood Cells 1 (0-5); Platelet Estimate Adequate; Segmented Neutrophils 37 % (50-85); Total Cells Counted 100
[2021-09-18 07:39] LABS: Anisocytosis 1+; Macrocytosis Slight; Smudge Cells Few
[2021-09-18] MEDS: INSULIN LISPRO 100 UNIT/ML SUBCUT SCH (09:33)
[2021-09-18] MEDS: CLOTRIMAZOLE 10 MG TROCHE PO SCH (09:34)
[2021-09-18] MEDS: AMITRIPTYLINE 50 MG TABLET PO SCH (09:34)
[2021-09-18] MEDS: carvediloL 12.5 MG TABLET PO SCH (09:34)
[2021-09-18] MEDS: DONEPEZIL 10 MG TABLET PO SCH (09:34)
[2021-09-18] MEDS: MEMANTINE 10 MG TABLET PO SCH (09:34)
[2021-09-18] MEDS: LINACLOTIDE 145 MCG CAPSULE PO SCH (09:34)
[2021-09-18] MEDS: cloNIDine 0.1 MG TABLET PO SCH (09:34)
[2021-09-18] MEDS: POTASSIUM BICARB EFFERVESCENT 20 MEQ TAB.EFF PO SCH (09:35)
[2021-09-18] MEDS: POLYETHYLENE GLYCOL POWDER 17 GM PACK PO SCH (11:05)
[2021-09-18 14:35] VITALS: BP 135/39
[2021-09-18] MEDS ORDERED: METHENAMINE HIPPURATE 1 GM TABLET PO SCH (21:00)
[2021-09-19] MEDS ORDERED: LINACLOTIDE 145 MCG CAPSULE PO SCH (07:30)
== END 2021-09-19 01:35 | disposition home or self-care (01) | DRG 689 ==
LOC: N.ED 13:24 → N.TELES 19:52 → SUATTDRO 19:52 → N.TELES 21:35
PROVIDERS: ADMIT Internal Medicine; ATTEND Hospitalist

== ENCOUNTER 2021-09-25 10:35 | Inpatient (IN) ==
[2021-09-25] MEDS ORDERED: SODIUM CHLORIDE 0.9% 1,000 ML IV STA (11:19)
[2021-09-25 12:20] LABS: Basophils % 0.3 % (0.0-0.8); Eosinophils % 0.4 % (0.00-10.9); Hematocrit 21.3 VOL% (35.7-47.0); Hemoglobin 6.7 GM/DL (12.0-16.0); Immature Granulocytes % 8.5 %; Immature Granulocytes Absolute 0.94 #; Lymphocytes # 2.2 10*3/uL (1.4-4.0); Mean Corpuscular HGB Conc 31.5 GM/DL (32-36); Mean Corpuscular Volume 93.4 FL (87-102); Mean Platelet Volume 11.5 FL (9.6-12.0); Monocytes % 8.7 % (1.7-12.7); Neutrophils % 62.1 % (38.7-73.9); Platelet Count 123 T/CUMM (130-400); Red Blood Count 2.28 MC/CUMM (3.8-5.5)
[2021-09-25 12:45] LABS: Alanine Aminotransferase 18 U/L (13-56); Albumin 2.3 G/DL (3.4-5.0); Alkaline Phosphatase 80 U/L (45-117); Aspartate Amino Transferase 13 U/L (0-37); Bilirubin,Total < 0.39 MG/DL (0.20-1.00); Blood Urea Nitrogen 19 MG/DL (7-18); Calcium 9.1 MG/DL (8.5-10.1); Carbon Dioxide 28 MMOL/L (21-32); Estimated Glom Filtration Rate 26 ML/MIN; Glucose 151 MG/DL (74-106); Osmolality,Calculated 285.3 MOS/KG (273-304); Potassium 3.1 MMOL/L (3.5-5.1); Prealbumin 12.5 MG/DL (20-40); Sodium 141 MMOL/L (136-145); Total Protein 6.5 G/DL (6.4-8.2)
[2021-09-25 13:09] LABS: Band Neutrophils 1 % (0-10); Hypochromia 1+; Lymphocytes 31 % (20-55); Metamyelocytes 4 %; Microcytosis 1+; Nucleated Red Blood Cells 1 (0-5); Platelet Estimate Normal; Segmented Neutrophils 56 % (50-85); Total Cells Counted 100
[2021-09-25 13:10] LABS: Atypical Lymphocytes Few
[2021-09-25] MEDS ORDERED: DEXTROSE 50% 25 GM/50 ML SYRINGE IV PRN (14:26)
[2021-09-25] MEDS ORDERED: GLUCAGON 1 MG VIAL IM PRN (14:26)
[2021-09-25] MEDS ORDERED: ONDANSETRON 4 MG/2 ML VIAL IV PRN (14:26)
[2021-09-25 14:58] LABS: Bilirubin,Urine Negative (Negative); Blood, Urine Small mg/dL (Negative); Glucose,Urine (UA) Negative (Negative); Ketones,Urine 5 mg/dL (Negative); Mucus,Urine Occasional /LPF (Occasional); Nitrite,Urine Negative (Negative); Protein,Urine 100 MG/DL; RBC,Urine 42 /HPF (0-4); Squamous Epithelial Cell,Urine Few /HPF (0-10); Urine Appearance CLOUDY (Clear); Urine Color Yellow (Yellow); Urine Specific Gravity 1.012 (1.001-1.035); Urine Urobilinogen < 2.0 EU/DL (<2.0)
[2021-09-25] MEDS ORDERED: SODIUM CHLORIDE 0.9% 1,000 ML IV PRN (15:37)
[2021-09-25] MEDS ORDERED: POTASSIUM CHLORIDE RIDER 10 MEQ/100 ML PREMIX IV SCH (16:00)
[2021-09-25] MEDS ORDERED: POTASSIUM BICARB EFFERVESCENT 20 MEQ TAB.EFF PO ONE (16:00)
[2021-09-25] MEDS ORDERED: CLOTRIMAZOLE 10 MG TROCHE PO SCH (17:15)
[2021-09-25] MEDS: CLOTRIMAZOLE 10 MG TROCHE PO SCH (21:59)
[2021-09-26 09:00] LABS: Basophils # 0.1 10*3/uL (0.0-0.2); Basophils % 0.5 % (0.0-0.8); Eosinophils % 0.3 % (0.00-10.9); Hematocrit 32.7 VOL% (35.7-47.0); Immature Granulocytes % 7.1 %; Immature Granulocytes Absolute 0.66 #; Lymphocytes # 1.8 10*3/uL (1.4-4.0); Mean Corpuscular HGB Conc 31.8 GM/DL (32-36); Mean Corpuscular Volume 92.1 FL (87-102); Mean Platelet Volume 11.1 FL (9.6-12.0); Monocytes % 9.2 % (1.7-12.7); NRBC # 0.02 10*3/uL; Neutrophils % 63.9 % (38.7-73.9); Platelet Count 147 T/CUMM (130-400); Red Cell Distribution Width 13.5 % (9.3-17.3); White Blood Count 9.3 T/CUMM (4-12)
[2021-09-26 09:03] LABS: Hemoglobin 10.4 GM/DL (12.0-16.0); Red Blood Count 3.55 MC/CUMM (3.8-5.5)
[2021-09-26] MEDS: CLOTRIMAZOLE 10 MG TROCHE PO SCH ×4 (09:12→20:36)
[2021-09-26 09:17] LABS: Band Neutrophils 1 % (0-10); Eosinophils 1 % (0-10); Hypochromia 1+; Lymphocytes 15 % (20-55); Microcytosis 1+; Platelet Estimate Adequate; Segmented Neutrophils 76 % (50-85); Total Cells Counted 100
[2021-09-26 09:33] LABS: Alanine Aminotransferase 18 U/L (13-56); Albumin 2.2 G/DL (3.4-5.0); Alkaline Phosphatase 72 U/L (45-117); Aspartate Amino Transferase 12 U/L (0-37); Bilirubin,Total < 0.39 MG/DL (0.20-1.00); Blood Urea Nitrogen 16 MG/DL (7-18); Calcium 8.6 MG/DL (8.5-10.1); Carbon Dioxide 26 MMOL/L (21-32); Estimated Glom Filtration Rate 33 ML/MIN; Glucose 110 MG/DL (74-106); Osmolality,Calculated 291.6 MOS/KG (273-304); Potassium 3.1 MMOL/L (3.5-5.1); Sodium 146 MMOL/L (136-145); Total Protein 6.3 G/DL (6.4-8.2)
[2021-09-26] MEDS ORDERED: GABAPENTIN 300 MG CAPSULE PO PRN (13:39)
[2021-09-26] MEDS ORDERED: FUROSEMIDE 20 MG TABLET PO PRN (13:39)
[2021-09-26] MEDS: cloNIDine 0.1 MG TABLET PO SCH ×2 (14:38→20:35)
[2021-09-26] MEDS: DIGOXIN 0.125 MG TABLET PO SCH (14:38)
[2021-09-26] MEDS ORDERED: POTASSIUM BICARB EFFERVESCENT 20 MEQ TAB.EFF PO ONE (16:00)
[2021-09-26] MEDS: carvediloL 12.5 MG TABLET PO SCH (17:19)
[2021-09-26 20:04] LABS: Bacteria,Urine Moderate /HPF (Few); Bilirubin,Urine Negative (Negative); Blood, Urine Small mg/dL (Negative); Glucose,Urine (UA) 50 mg/dL (Negative); Ketones,Urine Negative (Negative); Mucus,Urine Occasional /LPF (Occasional); Nitrite,Urine Negative (Negative); Protein,Urine 100 MG/DL; RBC,Urine 9 /HPF (0-4); Squamous Epithelial Cell,Urine Occasional /HPF (0-10); Urine Appearance CLOUDY (Clear); Urine Color Yellow (Yellow); Urine Urobilinogen < 2.0 EU/DL (<2.0)
[2021-09-26] MEDS: METHENAMINE HIPPURATE 1 GM TABLET PO SCH (20:35)
[2021-09-26] MEDS: DONEPEZIL 10 MG TABLET PO SCH (20:35)
[2021-09-26] MEDS: ZALEPLON 5 MG CAPSULE PO SCH (20:35)
[2021-09-26] MEDS: AMITRIPTYLINE 50 MG TABLET PO SCH (20:35)
[2021-09-26] MEDS: PANTOPRAZOLE 40 MG TABLET PO SCH (20:36)
[2021-09-26] MEDS: MEMANTINE 10 MG TABLET PO SCH (20:36)
[2021-09-26] MEDS: BRIMONIDINE/TIMOLOL OPH SOLN 5 ML BOTTLE BOTH EYES SCH (20:36)
[2021-09-26] MEDS: DIVALPROEX 250 MG TABLET PO SCH (20:36)
[2021-09-26] MEDS: CITALOPRAM 20 MG TABLET PO SCH (20:36)
[2021-09-27] MEDS: LEVOTHYROXINE 25 MCG TABLET PO SCH (06:04)
[2021-09-27] MEDS: BRIMONIDINE/TIMOLOL OPH SOLN 5 ML BOTTLE BOTH EYES SCH ×2 (09:00→21:51)
[2021-09-27] MEDS: CLOTRIMAZOLE 10 MG TROCHE PO SCH ×4 (09:36→20:17)
[2021-09-27] MEDS: AMITRIPTYLINE 50 MG TABLET PO SCH ×2 (09:36→20:17)
[2021-09-27] MEDS: METHENAMINE HIPPURATE 1 GM TABLET PO SCH ×2 (09:36→20:17)
[2021-09-27] MEDS: FERROUS SULFATE 325 MG TABLET PO SCH (09:37)
[2021-09-27] MEDS: PANTOPRAZOLE 40 MG TABLET PO SCH ×2 (09:37→20:18)
[2021-09-27] MEDS: carvediloL 12.5 MG TABLET PO SCH ×2 (09:37→18:05)
[2021-09-27] MEDS: cloNIDine 0.1 MG TABLET PO SCH ×2 (09:37→20:16)
[2021-09-27] MEDS: DONEPEZIL 10 MG TABLET PO SCH ×2 (09:37→20:16)
[2021-09-27] MEDS: LINACLOTIDE 145 MCG CAPSULE PO SCH (09:38)
[2021-09-27] MEDS: MEMANTINE 10 MG TABLET PO SCH ×2 (09:38→20:17)
[2021-09-27] MEDS: FOLIC ACID 1 MG TABLET PO SCH (09:38)
[2021-09-27] MEDS: DIGOXIN 0.125 MG TABLET PO SCH (09:42)
[2021-09-27] MEDS: DIVALPROEX 250 MG TABLET PO SCH ×2 (11:08→20:16)
[2021-09-27] MEDS ORDERED: cefTRIAXone 2,000 MG in SODIUM CHLORIDE 0.9% 100 ML IV SCH (12:00)
[2021-09-27 12:27] LABS: Alanine Aminotransferase 14 U/L (13-56); Albumin 2.1 G/DL (3.4-5.0); Alkaline Phosphatase 68 U/L (45-117); Aspartate Amino Transferase 10 U/L (0-37); Bilirubin,Total < 0.39 MG/DL (0.20-1.00); Blood Urea Nitrogen 17 MG/DL (7-18); Calcium 8.5 MG/DL (8.5-10.1); Carbon Dioxide 28 MMOL/L (21-32); Estimated Glom Filtration Rate 31 ML/MIN; Glucose 162 MG/DL (74-106); Osmolality,Calculated 293.7 MOS/KG (273-304); Potassium 3.2 MMOL/L (3.5-5.1); Sodium 145 MMOL/L (136-145); Total Protein 5.9 G/DL (6.4-8.2)
[2021-09-27] MEDS ORDERED: VANCOMYCIN INJ 2,250 MG in SODIUM CHLORIDE 0.9% 500 ML IV ONE ×2 (14:00→18:30)
[2021-09-27 14:02] LABS: PT Patient Result 11.4 SECS (10.5-12.0)
[2021-09-27 15:51] LABS: Glucose,CSF 102 MG/DL (40-70)
[2021-09-27] MEDS: ACYCLOVIR INJ 700 MG in SODIUM CHLORIDE 0.9% 250 ML IV SCH (15:59)
[2021-09-27 16:34] LABS: Lymphocytes,CSF 33 %; Neutrophils,CSF 67 %; Red Blood Cell,CSF < 1 C/CUMM; White Blood Cell,CSF 2 C/CUMM
[2021-09-27 16:35] LABS: Appearance,CSF Clear
[2021-09-27] MEDS: cefTRIAXone 2,000 MG in SODIUM CHLORIDE 0.9% 100 ML IV SCH (16:54)
[2021-09-27] MEDS ORDERED: MULTIVITAMIN IV SCH (17:00)
[2021-09-27] MEDS ORDERED: ZINC IV SCH (17:00)
[2021-09-27] MEDS ORDERED: [UNRECOGNIZED DRUG - OTHER] IV SCH (17:00)
[2021-09-27] MEDS ORDERED: MANGANESE IV SCH (17:00)
[2021-09-27] MEDS ORDERED: SELENIUM IV SCH (17:00)
[2021-09-27] MEDS ORDERED: DEXTROSE 10% 1,000 ML IV PRN (17:00)
[2021-09-27] MEDS ORDERED: COPPER IV SCH (17:00)
[2021-09-27] MEDS: AMPICILLIN INJ 2,000 MG in SODIUM CHLORIDE 0.9% 100 ML IV SCH ×2 (17:32→19:09)
[2021-09-27] MEDS: CITALOPRAM 20 MG TABLET PO SCH (20:16)
[2021-09-27] MEDS: ZALEPLON 5 MG CAPSULE PO SCH (20:18)
[2021-09-27] MEDS: hydrALAZINE 20 MG/1 ML VIAL IV PRN (20:58)
[2021-09-28] MEDS: AMPICILLIN INJ 2,000 MG in SODIUM CHLORIDE 0.9% 100 ML IV SCH ×4 (00:04→21:15)
[2021-09-28] MEDS: ACYCLOVIR INJ 700 MG in SODIUM CHLORIDE 0.9% 250 ML IV SCH ×2 (02:49→18:13)
[2021-09-28] MEDS: cefTRIAXone 2,000 MG in SODIUM CHLORIDE 0.9% 100 ML IV SCH ×2 (03:50→19:28)
[2021-09-28 06:08] LABS: Calcium 8.4 MG/DL (8.5-10.1); Osmolality,Calculated 295.6 MOS/KG (273-304); Potassium 3.3 MMOL/L (3.5-5.1)
[2021-09-28] MEDS: LEVOTHYROXINE 25 MCG TABLET PO SCH (06:27)
[2021-09-28] MEDS: hydrALAZINE 20 MG/1 ML VIAL IV PRN (11:34)
[2021-09-28] MEDS: LINACLOTIDE 145 MCG CAPSULE PO SCH (11:50)
[2021-09-28] MEDS: carvediloL 12.5 MG TABLET PO SCH ×2 (11:51→18:13)
[2021-09-28] MEDS: DIVALPROEX 250 MG TABLET PO SCH ×2 (11:51→21:25)
[2021-09-28] MEDS: cloNIDine 0.1 MG TABLET PO SCH ×2 (11:51→21:24)
[2021-09-28] MEDS: DONEPEZIL 10 MG TABLET PO SCH ×2 (11:51→21:23)
[2021-09-28] MEDS: BRIMONIDINE/TIMOLOL OPH SOLN 5 ML BOTTLE BOTH EYES SCH ×2 (11:51→21:32)
[2021-09-28] MEDS: AMITRIPTYLINE 50 MG TABLET PO SCH ×2 (11:51→21:22)
[2021-09-28] MEDS: DIGOXIN 0.125 MG TABLET PO SCH (11:52)
[2021-09-28] MEDS: FOLIC ACID 1 MG TABLET PO SCH (11:52)
[2021-09-28] MEDS: FERROUS SULFATE 325 MG TABLET PO SCH (11:52)
[2021-09-28] MEDS: METHENAMINE HIPPURATE 1 GM TABLET PO SCH ×2 (11:52→21:20)
[2021-09-28] MEDS: MEMANTINE 10 MG TABLET PO SCH ×2 (11:53→21:32)
[2021-09-28] MEDS: PANTOPRAZOLE 40 MG TABLET PO SCH ×2 (11:53→21:20)
[2021-09-28] MEDS: CLOTRIMAZOLE 10 MG TROCHE PO SCH (12:06)
[2021-09-28] MEDS: NYSTATIN 500,000 UNIT/5 ML UDCUP SWISH/SWAL SCH ×3 (15:53→21:26)
[2021-09-28] MEDS: VANCOMYCIN INJ 1,250 MG in SODIUM CHLORIDE 0.9% 250 ML IV SCH (16:47)
[2021-09-28] MEDS: FAT EMULSION 20% 250 ML IV SCH (18:19)
[2021-09-28] MEDS: [UNRECOGNIZED DRUG - OTHER] IV SCH (19:22)
[2021-09-28] MEDS: COPPER IV SCH (19:22)
[2021-09-28] MEDS: MULTIVITAMIN IV SCH (19:22)
[2021-09-28] MEDS: ZINC IV SCH (19:22)
[2021-09-28] MEDS: SELENIUM IV SCH (19:22)
[2021-09-28] MEDS: MANGANESE IV SCH (19:22)
[2021-09-28] MEDS: CITALOPRAM 20 MG TABLET PO SCH (21:23)
[2021-09-28] MEDS: ZALEPLON 5 MG CAPSULE PO SCH (21:33)
[2021-09-29] MEDS: AMPICILLIN INJ 2,000 MG in SODIUM CHLORIDE 0.9% 100 ML IV SCH ×4 (01:14→18:10)
[2021-09-29] MEDS: ACYCLOVIR INJ 700 MG in SODIUM CHLORIDE 0.9% 250 ML IV SCH ×2 (03:48→15:57)
[2021-09-29] MEDS: cefTRIAXone 2,000 MG in SODIUM CHLORIDE 0.9% 100 ML IV SCH ×2 (05:11→17:16)
[2021-09-29] MEDS: LEVOTHYROXINE 25 MCG TABLET PO SCH (06:09)
[2021-09-29 07:14] LABS: Calcium 8.5 MG/DL (8.5-10.1); Osmolality,Calculated 300.6 MOS/KG (273-304); Potassium 3.3 MMOL/L (3.5-5.1)
[2021-09-29] MEDS: LINACLOTIDE 145 MCG CAPSULE PO SCH (10:56)
[2021-09-29] MEDS: cloNIDine 0.1 MG TABLET PO SCH ×2 (10:57→23:20)
[2021-09-29] MEDS: FERROUS SULFATE 325 MG TABLET PO SCH (10:58)
[2021-09-29] MEDS: carvediloL 12.5 MG TABLET PO SCH ×2 (10:58→17:16)
[2021-09-29] MEDS: FOLIC ACID 1 MG TABLET PO SCH (10:58)
[2021-09-29] MEDS: METHENAMINE HIPPURATE 1 GM TABLET PO SCH ×2 (10:58→23:22)
[2021-09-29] MEDS: DIGOXIN 0.125 MG TABLET PO SCH (10:58)
[2021-09-29] MEDS: PANTOPRAZOLE 40 MG TABLET PO SCH ×2 (10:58→23:21)
[2021-09-29] MEDS: DIVALPROEX 250 MG TABLET PO SCH ×2 (11:03→23:21)
[2021-09-29] MEDS: BRIMONIDINE/TIMOLOL OPH SOLN 5 ML BOTTLE BOTH EYES SCH ×2 (11:03→23:21)
[2021-09-29] MEDS: MEMANTINE 10 MG TABLET PO SCH ×2 (11:04→23:20)
[2021-09-29] MEDS: NYSTATIN 500,000 UNIT/5 ML UDCUP SWISH/SWAL SCH ×4 (11:42→23:21)
[2021-09-29] MEDS: DONEPEZIL 10 MG TABLET PO SCH (11:48)
[2021-09-29] MEDS: AMITRIPTYLINE 50 MG TABLET PO SCH (11:48)
[2021-09-29] MEDS: INSULIN REGULAR 100 UNIT/ML SUBCUT SCH ×2 (12:44→18:39)
[2021-09-29] MEDS: VANCOMYCIN INJ 1,250 MG in SODIUM CHLORIDE 0.9% 250 ML IV SCH (14:50)
[2021-09-29] MEDS: POTASSIUM BICARB EFFERVESCENT 25 MEQ TAB.EFF PO SCH (15:58)
[2021-09-29] MEDS: COPPER IV SCH (18:14)
[2021-09-29] MEDS: MANGANESE IV SCH (18:14)
[2021-09-29] MEDS: [UNRECOGNIZED DRUG - OTHER] IV SCH (18:14)
[2021-09-29] MEDS: MULTIVITAMIN IV SCH (18:14)
[2021-09-29] MEDS: SELENIUM IV SCH (18:14)
[2021-09-29] MEDS: ZINC IV SCH (18:14)
[2021-09-29] MEDS: CITALOPRAM 20 MG TABLET PO SCH (23:21)
[2021-09-30] MEDS: INSULIN REGULAR 100 UNIT/ML SUBCUT SCH ×5 (00:34→23:49)
[2021-09-30] MEDS: AMPICILLIN INJ 2,000 MG in SODIUM CHLORIDE 0.9% 100 ML IV SCH ×5 (00:34→23:42)
[2021-09-30] MEDS: ACYCLOVIR INJ 700 MG in SODIUM CHLORIDE 0.9% 250 ML IV SCH ×2 (03:41→15:31)
[2021-09-30] MEDS: cefTRIAXone 2,000 MG in SODIUM CHLORIDE 0.9% 100 ML IV SCH ×2 (06:23→17:05)
[2021-09-30] MEDS: LEVOTHYROXINE 25 MCG TABLET PO SCH (06:33)
[2021-09-30] MEDS: LINACLOTIDE 145 MCG CAPSULE PO SCH (07:37)
[2021-09-30] MEDS: FAT EMULSION 20% 250 ML IV SCH (11:12)
[2021-09-30] MEDS: PANTOPRAZOLE 40 MG TABLET PO SCH ×2 (11:15→21:28)
[2021-09-30] MEDS: carvediloL 12.5 MG TABLET PO SCH ×2 (11:15→17:06)
[2021-09-30] MEDS: FERROUS SULFATE 325 MG TABLET PO SCH (11:21)
[2021-09-30] MEDS: DIGOXIN 0.125 MG TABLET PO SCH (11:21)
[2021-09-30] MEDS: MEMANTINE 10 MG TABLET PO SCH ×2 (11:21→21:28)
[2021-09-30] MEDS: cloNIDine 0.1 MG TABLET PO SCH ×2 (11:21→21:27)
[2021-09-30] MEDS: DIVALPROEX 250 MG TABLET PO SCH ×2 (11:21→21:28)
[2021-09-30] MEDS: DONEPEZIL 10 MG TABLET PO SCH (11:21)
[2021-09-30] MEDS: FOLIC ACID 1 MG TABLET PO SCH (11:22)
[2021-09-30] MEDS: METHENAMINE HIPPURATE 1 GM TABLET PO SCH ×2 (11:22→21:27)
[2021-09-30] MEDS: POTASSIUM BICARB EFFERVESCENT 25 MEQ TAB.EFF PO SCH (11:23)
[2021-09-30] MEDS: BRIMONIDINE/TIMOLOL OPH SOLN 5 ML BOTTLE BOTH EYES SCH ×2 (11:35→21:28)
[2021-09-30] MEDS: NYSTATIN 500,000 UNIT/5 ML UDCUP SWISH/SWAL SCH ×4 (11:40→21:27)
[2021-09-30] MEDS: VANCOMYCIN INJ 1,250 MG in SODIUM CHLORIDE 0.9% 250 ML IV SCH (14:52)
[2021-09-30] MEDS: hydrALAZINE 20 MG/1 ML VIAL IV PRN (17:07)
[2021-09-30] MEDS: SELENIUM IV SCH (18:11)
[2021-09-30] MEDS: [UNRECOGNIZED DRUG - OTHER] IV SCH (18:11)
[2021-09-30] MEDS: COPPER IV SCH (18:11)
[2021-09-30] MEDS: ZINC IV SCH (18:11)
[2021-09-30] MEDS: MULTIVITAMIN IV SCH (18:11)
[2021-09-30] MEDS: MANGANESE IV SCH (18:11)
[2021-09-30] MEDS: CITALOPRAM 20 MG TABLET PO SCH (21:28)
[2021-10-01] MEDS: ACYCLOVIR INJ 700 MG in SODIUM CHLORIDE 0.9% 250 ML IV SCH (02:58)
[2021-10-01] MEDS: cefTRIAXone 2,000 MG in SODIUM CHLORIDE 0.9% 100 ML IV SCH (04:00)
[2021-10-01 05:58] LABS: Calcium 8.2 MG/DL (8.5-10.1); Osmolality,Calculated 296.8 MOS/KG (273-304); Potassium 3.6 MMOL/L (3.5-5.1)
[2021-10-01] MEDS: AMPICILLIN INJ 2,000 MG in SODIUM CHLORIDE 0.9% 100 ML IV SCH (06:24)
[2021-10-01] MEDS: LEVOTHYROXINE 25 MCG TABLET PO SCH (06:25)
[2021-10-01] MEDS: INSULIN REGULAR 100 UNIT/ML SUBCUT SCH ×3 (06:25→17:42)
[2021-10-01] MEDS: LINACLOTIDE 145 MCG CAPSULE PO SCH (07:30)
[2021-10-01] MEDS ORDERED: AMITRIPTYLINE 25 MG TABLET PO SCH (09:00)
[2021-10-01] MEDS: METHENAMINE HIPPURATE 1 GM TABLET PO SCH ×2 (09:33→22:15)
[2021-10-01] MEDS: DIVALPROEX 250 MG TABLET PO SCH ×2 (09:33→22:15)
[2021-10-01] MEDS: DIGOXIN 0.125 MG TABLET PO SCH (09:33)
[2021-10-01] MEDS: cloNIDine 0.1 MG TABLET PO SCH (09:33)
[2021-10-01] MEDS: NYSTATIN 500,000 UNIT/5 ML UDCUP SWISH/SWAL SCH ×4 (09:33→22:16)
[2021-10-01] MEDS: POTASSIUM BICARB EFFERVESCENT 25 MEQ TAB.EFF PO SCH (09:34)
[2021-10-01] MEDS: PANTOPRAZOLE 40 MG TABLET PO SCH ×2 (09:34→22:15)
[2021-10-01] MEDS: BRIMONIDINE/TIMOLOL OPH SOLN 5 ML BOTTLE BOTH EYES SCH ×2 (09:34→23:15)
[2021-10-01] MEDS: FOLIC ACID 1 MG TABLET PO SCH (09:34)
[2021-10-01] MEDS: FERROUS SULFATE 325 MG TABLET PO SCH (09:34)
[2021-10-01] MEDS: MEMANTINE 10 MG TABLET PO SCH ×2 (09:34→22:16)
[2021-10-01] MEDS: DONEPEZIL 10 MG TABLET PO SCH (09:34)
[2021-10-01] MEDS: carvediloL 12.5 MG TABLET PO SCH ×2 (09:34→16:09)
[2021-10-01] MEDS: amLODIPine 5 MG TABLET PO SCH (16:09)
[2021-10-01] MEDS: CITALOPRAM 40 MG TABLET PO SCH (22:16)
[2021-10-02] MEDS: INSULIN REGULAR 100 UNIT/ML SUBCUT SCH ×4 (01:22→17:14)
[2021-10-02 05:34] LABS: Basophils # 0.2 10*3/uL (0.0-0.2); Basophils % 1.5 % (0.0-0.8); Eosinophils % 0.2 % (0.00-10.9); Hematocrit 28.9 VOL% (35.7-47.0); Lymphocytes # 1.8 10*3/uL (1.4-4.0); Lymphocytes % 17.3 % (21.3-54.2); Mean Corpuscular HGB Conc 31.1 GM/DL (32-36); Mean Corpuscular Volume 94.4 FL (87-102); Mean Platelet Volume 11.1 FL (9.6-12.0); Monocytes % 9.7 % (1.7-12.7); NRBC # 0.02 10*3/uL; Neutrophils % 66.3 % (38.7-73.9); Platelet Count 194 T/CUMM (130-400); Red Blood Count 3.06 MC/CUMM (3.8-5.5); Red Cell Distribution Width 13.4 % (9.3-17.3); White Blood Count 10.1 T/CUMM (4-12)
[2021-10-02 05:49] LABS: Alanine Aminotransferase 11 U/L (13-56); Albumin 1.7 G/DL (3.4-5.0); Alkaline Phosphatase 73 U/L (45-117); Aspartate Amino Transferase 8 U/L (0-37); Bilirubin,Total < 0.39 MG/DL (0.20-1.00); Blood Urea Nitrogen 37 MG/DL (7-18); Calcium 8.7 MG/DL (8.5-10.1); Carbon Dioxide 25 MMOL/L (21-32); Estimated Glom Filtration Rate 39 ML/MIN; Free T4 (Free Thyroxine) 0.96 NG/DL (0.76-1.46); Glucose 191 MG/DL (74-106); Osmolality,Calculated 294.3 MOS/KG (273-304); Potassium 3.9 MMOL/L (3.5-5.1); Sodium 141 MMOL/L (136-145); Total Protein 5.9 G/DL (6.4-8.2)
[2021-10-02 06:08] LABS: Folate > 24.00 NG/ML (5.38-24.0); Vitamin B12 > 2000 PG/ML (211-911)
[2021-10-02] MEDS: LEVOTHYROXINE 25 MCG TABLET PO SCH (06:19)
[2021-10-02] MEDS: METHENAMINE HIPPURATE 1 GM TABLET PO SCH ×2 (09:28→21:37)
[2021-10-02] MEDS: DIVALPROEX 250 MG TABLET PO SCH ×2 (09:28→21:37)
[2021-10-02] MEDS: FERROUS SULFATE 325 MG TABLET PO SCH (09:28)
[2021-10-02] MEDS: PANTOPRAZOLE 40 MG TABLET PO SCH ×2 (09:29→21:38)
[2021-10-02] MEDS: FOLIC ACID 1 MG TABLET PO SCH (09:29)
[2021-10-02] MEDS: MEMANTINE 10 MG TABLET PO SCH ×2 (09:29→21:37)
[2021-10-02] MEDS: FUROSEMIDE 20 MG TABLET PO SCH (09:29)
[2021-10-02] MEDS: MEGESTROL 400 MG/10 ML UDCUP PO SCH ×2 (09:29→21:38)
[2021-10-02] MEDS: DONEPEZIL 10 MG TABLET PO SCH (09:29)
[2021-10-02] MEDS: DIGOXIN 0.125 MG TABLET PO SCH (09:29)
[2021-10-02] MEDS: amLODIPine 5 MG TABLET PO SCH (09:29)
[2021-10-02] MEDS: carvediloL 12.5 MG TABLET PO SCH ×2 (09:29→16:58)
[2021-10-02] MEDS: NYSTATIN 500,000 UNIT/5 ML UDCUP SWISH/SWAL SCH ×4 (09:30→21:37)
[2021-10-02] MEDS: LINACLOTIDE 145 MCG CAPSULE PO SCH (09:30)
[2021-10-02] MEDS: BRIMONIDINE/TIMOLOL OPH SOLN 5 ML BOTTLE BOTH EYES SCH ×2 (09:30→21:38)
[2021-10-02] MEDS: CITALOPRAM 40 MG TABLET PO SCH (21:38)
[2021-10-03] MEDS: INSULIN REGULAR 100 UNIT/ML SUBCUT SCH ×4 (00:34→17:06)
[2021-10-03 05:29] LABS: Basophils # 0.1 10*3/uL (0.0-0.2); Basophils % 1.1 % (0.0-0.8); Eosinophils % 0.1 % (0.00-10.9); Hemoglobin 8.8 GM/DL (12.0-16.0); Immature Granulocytes % 5.9 %; Immature Granulocytes Absolute 0.72 #; Lymphocytes # 2.4 10*3/uL (1.4-4.0); Lymphocytes % 19.4 % (21.3-54.2); Mean Corpuscular HGB Conc 31.4 GM/DL (32-36); Mean Platelet Volume 11.1 FL (9.6-12.0); Monocytes % 10.3 % (1.7-12.7); NRBC # 0.03 10*3/uL; Neutrophils % 63.2 % (38.7-73.9); Platelet Count 190 T/CUMM (130-400); Red Blood Count 2.98 MC/CUMM (3.8-5.5); Red Cell Distribution Width 13.4 % (9.3-17.3); White Blood Count 12.2 T/CUMM (4-12)
[2021-10-03] MEDS: LEVOTHYROXINE 25 MCG TABLET PO SCH (05:47)
[2021-10-03 05:51] LABS: Calcium 8.7 MG/DL (8.5-10.1); Osmolality,Calculated 296.3 MOS/KG (273-304)
[2021-10-03 06:05] LABS: Band Neutrophils 1 % (0-10); Hypochromia Slight; Lymphocytes 15 % (20-55); Microcytosis 1+; Ovalocytes Slight; Segmented Neutrophils 78 % (50-85); Total Cells Counted 100
[2021-10-03] MEDS: MEMANTINE 10 MG TABLET PO SCH ×2 (08:51→21:32)
[2021-10-03] MEDS: amLODIPine 5 MG TABLET PO SCH (08:51)
[2021-10-03] MEDS: DIVALPROEX 250 MG TABLET PO SCH ×2 (08:51→21:32)
[2021-10-03] MEDS: LINACLOTIDE 145 MCG CAPSULE PO SCH (08:51)
[2021-10-03] MEDS: DONEPEZIL 10 MG TABLET PO SCH (08:52)
[2021-10-03] MEDS: BRIMONIDINE/TIMOLOL OPH SOLN 5 ML BOTTLE BOTH EYES SCH ×2 (08:52→21:41)
[2021-10-03] MEDS: METHENAMINE HIPPURATE 1 GM TABLET PO SCH ×2 (08:52→21:32)
[2021-10-03] MEDS: FERROUS SULFATE 325 MG TABLET PO SCH (08:52)
[2021-10-03] MEDS: FUROSEMIDE 20 MG TABLET PO SCH (08:52)
[2021-10-03] MEDS: NYSTATIN 500,000 UNIT/5 ML UDCUP SWISH/SWAL SCH ×4 (08:52→21:32)
[2021-10-03] MEDS: PANTOPRAZOLE 40 MG TABLET PO SCH ×2 (08:52→21:32)
[2021-10-03] MEDS: DIGOXIN 0.125 MG TABLET PO SCH (08:52)
[2021-10-03] MEDS: carvediloL 12.5 MG TABLET PO SCH ×2 (08:52→16:30)
[2021-10-03] MEDS: FOLIC ACID 1 MG TABLET PO SCH (08:52)
[2021-10-03] MEDS: MEGESTROL 400 MG/10 ML UDCUP PO SCH ×2 (08:52→21:40)
[2021-10-03] MEDS ORDERED: CYCLOBENZAPRINE 10 MG TABLET PO PRN (10:20)
[2021-10-03] MEDS: INSULIN GLARGINE 100 UNIT/ML SUBCUT SCH (11:25)
[2021-10-03] MEDS: CITALOPRAM 40 MG TABLET PO SCH (21:32)
[2021-10-04] MEDS: INSULIN REGULAR 100 UNIT/ML SUBCUT SCH ×5 (02:06→18:29)
[2021-10-04] MEDS: LEVOTHYROXINE 25 MCG TABLET PO SCH (06:11)
[2021-10-04 06:33] LABS: Basophils # 0.1 10*3/uL (0.0-0.2); Basophils % 1.1 % (0.0-0.8); Eosinophils % 0.3 % (0.00-10.9); Hematocrit 27.8 VOL% (35.7-47.0); Hemoglobin 8.6 GM/DL (12.0-16.0); Immature Granulocytes % 6.6 %; Immature Granulocytes Absolute 0.73 #; Lymphocytes # 2.4 10*3/uL (1.4-4.0); Lymphocytes % 21.2 % (21.3-54.2); Mean Corpuscular HGB Conc 30.9 GM/DL (32-36); Mean Corpuscular Volume 94.9 FL (87-102); Mean Platelet Volume 12.2 FL (9.6-12.0); Monocytes % 12.1 % (1.7-12.7); NRBC # 0.02 10*3/uL; Neutrophils % 58.7 % (38.7-73.9); Platelet Count 147 T/CUMM (130-400); Red Blood Count 2.93 MC/CUMM (3.8-5.5); Red Cell Distribution Width 13.6 % (9.3-17.3); White Blood Count 11.1 T/CUMM (4-12)
[2021-10-04 06:55] LABS: Hypochromia 1+; Lymphocytes 28 % (20-55); Microcytosis 1+; Ovalocytes Slight; Platelet Estimate Adequate; Segmented Neutrophils 62 % (50-85); Total Cells Counted 100
[2021-10-04 07:09] LABS: Calcium 8.8 MG/DL (8.5-10.1); Osmolality,Calculated 300.1 MOS/KG (273-304); Potassium 4.5 MMOL/L (3.5-5.1)
[2021-10-04] MEDS: LINACLOTIDE 145 MCG CAPSULE PO SCH (09:08)
[2021-10-04] MEDS: FERROUS SULFATE 325 MG TABLET PO SCH (09:08)
[2021-10-04] MEDS: FOLIC ACID 1 MG TABLET PO SCH (09:08)
[2021-10-04] MEDS: FUROSEMIDE 20 MG TABLET PO SCH (09:08)
[2021-10-04] MEDS: MEMANTINE 10 MG TABLET PO SCH ×2 (09:09→22:00)
[2021-10-04] MEDS: carvediloL 12.5 MG TABLET PO SCH ×2 (09:09→16:25)
[2021-10-04] MEDS: amLODIPine 5 MG TABLET PO SCH (09:09)
[2021-10-04] MEDS: DIVALPROEX 250 MG TABLET PO SCH ×2 (09:09→22:00)
[2021-10-04] MEDS: MEGESTROL 400 MG/10 ML UDCUP PO SCH ×2 (09:09→22:00)
[2021-10-04] MEDS: DIGOXIN 0.125 MG TABLET PO SCH (09:09)
[2021-10-04] MEDS: BRIMONIDINE/TIMOLOL OPH SOLN 5 ML BOTTLE BOTH EYES SCH ×2 (09:09→22:00)
[2021-10-04] MEDS: PANTOPRAZOLE 40 MG TABLET PO SCH ×2 (09:09→22:00)
[2021-10-04] MEDS: DONEPEZIL 10 MG TABLET PO SCH (09:09)
[2021-10-04] MEDS: INSULIN GLARGINE 100 UNIT/ML SUBCUT SCH (09:10)
[2021-10-04] MEDS: NYSTATIN 500,000 UNIT/5 ML UDCUP SWISH/SWAL SCH ×4 (10:01→22:16)
[2021-10-04] MEDS: CHOLECALCIFEROL 1,000 UNIT TABLET PO SCH (13:10)
[2021-10-04] MEDS: CITALOPRAM 40 MG TABLET PO SCH (22:00)
[2021-10-05] MEDS: INSULIN REGULAR 100 UNIT/ML SUBCUT SCH ×4 (00:21→17:10)
[2021-10-05 05:26] LABS: Basophils # 0.1 10*3/uL (0.0-0.2); Basophils % 1.1 % (0.0-0.8); Eosinophils % 0.1 % (0.00-10.9); Hematocrit 27.4 VOL% (35.7-47.0); Hemoglobin 8.3 GM/DL (12.0-16.0); Immature Granulocytes % 8.9 %; Immature Granulocytes Absolute 1.02 #; Lymphocytes # 2.4 10*3/uL (1.4-4.0); Lymphocytes % 20.9 % (21.3-54.2); Mean Corpuscular HGB Conc 30.3 GM/DL (32-36); Mean Corpuscular Volume 96.1 FL (87-102); Mean Platelet Volume 11.4 FL (9.6-12.0); Monocytes % 12.5 % (1.7-12.7); Neutrophils % 56.5 % (38.7-73.9); Platelet Count 179 T/CUMM (130-400); Red Blood Count 2.85 MC/CUMM (3.8-5.5); Red Cell Distribution Width 13.9 % (9.3-17.3); White Blood Count 11.4 T/CUMM (4-12)
[2021-10-05 05:46] LABS: Calcium 8.6 MG/DL (8.5-10.1); Potassium 4.6 MMOL/L (3.5-5.1)
[2021-10-05 05:58] LABS: Band Neutrophils 1 % (0-10); Hypochromia 2+; Lymphocytes 25 % (20-55); Metamyelocytes 4 %; Platelet Estimate Normal; Segmented Neutrophils 59 % (50-85); Total Cells Counted 100
[2021-10-05] MEDS: LEVOTHYROXINE 25 MCG TABLET PO SCH (06:14)
[2021-10-05] MEDS: PANTOPRAZOLE 40 MG TABLET PO SCH ×2 (08:10→21:52)
[2021-10-05] MEDS: amLODIPine 5 MG TABLET PO SCH (08:10)
[2021-10-05] MEDS: carvediloL 12.5 MG TABLET PO SCH ×2 (08:10→17:10)
[2021-10-05] MEDS: MEGESTROL 400 MG/10 ML UDCUP PO SCH ×2 (08:10→21:52)
[2021-10-05] MEDS: DIGOXIN 0.125 MG TABLET PO SCH (08:10)
[2021-10-05] MEDS: FERROUS SULFATE 325 MG TABLET PO SCH (08:10)
[2021-10-05] MEDS: DIVALPROEX 250 MG TABLET PO SCH ×2 (08:10→21:52)
[2021-10-05] MEDS: LINACLOTIDE 145 MCG CAPSULE PO SCH (08:10)
[2021-10-05] MEDS: CHOLECALCIFEROL 1,000 UNIT TABLET PO SCH (08:10)
[2021-10-05] MEDS: MEMANTINE 10 MG TABLET PO SCH ×2 (08:10→21:52)
[2021-10-05] MEDS ORDERED: INSULIN GLARGINE 100 UNIT/ML SUBCUT SCH (09:00)
[2021-10-05] MEDS: BRIMONIDINE/TIMOLOL OPH SOLN 5 ML BOTTLE BOTH EYES SCH ×2 (09:33→21:52)
[2021-10-05] MEDS: FOLIC ACID 1 MG TABLET PO SCH (09:33)
[2021-10-05] MEDS: DONEPEZIL 10 MG TABLET PO SCH (09:33)
[2021-10-05] MEDS: NYSTATIN 500,000 UNIT/5 ML UDCUP SWISH/SWAL SCH ×4 (09:34→22:39)
[2021-10-05] MEDS ORDERED: DEXTROSE 10% 250 ML BAG IV PRN (11:00)
[2021-10-05] MEDS ORDERED: INSULIN GLARGINE 100 UNIT/ML SUBCUT ONE (11:30)
[2021-10-05] MEDS: hydrALAZINE 20 MG/1 ML VIAL IV PRN (17:10)
[2021-10-05] MEDS: CITALOPRAM 40 MG TABLET PO SCH (21:52)
[2021-10-06] MEDS: INSULIN REGULAR 100 UNIT/ML SUBCUT SCH ×4 (00:07→18:42)
[2021-10-06] MEDS: LEVOTHYROXINE 25 MCG TABLET PO SCH (05:54)
[2021-10-06 07:01] LABS: Basophils # 0.1 10*3/uL (0.0-0.2); Basophils % 0.8 % (0.0-0.8); Eosinophils % 0.2 % (0.00-10.9); Hematocrit 28.1 VOL% (35.7-47.0); Hemoglobin 8.6 GM/DL (12.0-16.0); Immature Granulocytes % 9.4 %; Immature Granulocytes Absolute 1.14 #; Lymphocytes # 2.3 10*3/uL (1.4-4.0); Lymphocytes % 18.5 % (21.3-54.2); Mean Corpuscular HGB Conc 30.6 GM/DL (32-36); Mean Corpuscular Volume 96.9 FL (87-102); Mean Platelet Volume 11.5 FL (9.6-12.0); Monocytes % 9.9 % (1.7-12.7); Neutrophils % 61.2 % (38.7-73.9); Platelet Count 192 T/CUMM (130-400); Red Cell Distribution Width 13.8 % (9.3-17.3); White Blood Count 12.2 T/CUMM (4-12)
[2021-10-06 07:22] LABS: Calcium 9.4 MG/DL (8.5-10.1); Potassium 4.9 MMOL/L (3.5-5.1)
[2021-10-06 07:29] LABS: Segmented Neutrophils 69 % (50-85)
[2021-10-06 07:30] LABS: Eosinophils 1 % (0-10); Hypochromia 1+; Lymphocytes 19 % (20-55); Pappenheimer Bodies 3+; Platelet Estimate Normal; Total Cells Counted 100
[2021-10-06] MEDS: CHOLECALCIFEROL 1,000 UNIT TABLET PO SCH (09:00)
[2021-10-06] MEDS: PANTOPRAZOLE 40 MG TABLET PO SCH ×2 (09:00→21:13)
[2021-10-06] MEDS: INSULIN GLARGINE 100 UNIT/ML SUBCUT SCH (09:00)
[2021-10-06] MEDS: DONEPEZIL 10 MG TABLET PO SCH (09:00)
[2021-10-06] MEDS: carvediloL 12.5 MG TABLET PO SCH ×2 (09:00→17:10)
[2021-10-06] MEDS: amLODIPine 5 MG TABLET PO SCH (09:00)
[2021-10-06] MEDS: DIVALPROEX 250 MG TABLET PO SCH ×2 (09:00→21:13)
[2021-10-06] MEDS: MEMANTINE 10 MG TABLET PO SCH ×2 (09:00→21:13)
[2021-10-06] MEDS: FOLIC ACID 1 MG TABLET PO SCH (09:01)
[2021-10-06] MEDS: DIGOXIN 0.125 MG TABLET PO SCH (09:02)
[2021-10-06] MEDS: LINACLOTIDE 145 MCG CAPSULE PO SCH (09:03)
[2021-10-06] MEDS: FERROUS SULFATE 325 MG TABLET PO SCH (09:05)
[2021-10-06] MEDS: MEGESTROL 400 MG/10 ML UDCUP PO SCH (09:05)
[2021-10-06] MEDS: BRIMONIDINE/TIMOLOL OPH SOLN 5 ML BOTTLE BOTH EYES SCH ×2 (09:57→21:13)
[2021-10-06] MEDS: NYSTATIN 500,000 UNIT/5 ML UDCUP SWISH/SWAL SCH ×4 (09:57→21:13)
[2021-10-06] MEDS: amLODIPine 10 MG TABLET PO SCH (10:40)
[2021-10-06] MEDS: CITALOPRAM 40 MG TABLET PO SCH (21:13)
[2021-10-07] MEDS: INSULIN REGULAR 100 UNIT/ML SUBCUT SCH ×4 (00:22→17:48)
[2021-10-07] MEDS: LEVOTHYROXINE 25 MCG TABLET PO SCH (05:48)
[2021-10-07 07:31] LABS: Basophils # 0.1 10*3/uL (0.0-0.2); Basophils % 0.7 % (0.0-0.8); Eosinophils # 0.1 10*3/uL (0.0-0.87); Eosinophils % 0.7 % (0.00-10.9); Hemoglobin 8.1 GM/DL (12.0-16.0); Immature Granulocytes % 6.4 %; Immature Granulocytes Absolute 0.78 #; Lymphocytes % 16.2 % (21.3-54.2); Mean Corpuscular Volume 96.4 FL (87-102); Mean Platelet Volume 11.6 FL (9.6-12.0); Monocytes % 10.1 % (1.7-12.7); Neutrophils % 65.9 % (38.7-73.9); Platelet Count 185 T/CUMM (130-400); Red Cell Distribution Width 13.9 % (9.3-17.3); White Blood Count 12.2 T/CUMM (4-12)
[2021-10-07 08:11] LABS: Albumin 1.8 G/DL (3.4-5.0); Bilirubin,Total 2.4 MG/DL (0.20-1.00); Calcium 8.8 MG/DL (8.5-10.1); Osmolality,Calculated 303.8 MOS/KG (273-304); Potassium 4.8 MMOL/L (3.5-5.1); Total Protein 6.4 G/DL (6.4-8.2)
[2021-10-07 08:34] LABS: Band Neutrophils 10 % (0-10); Lymphocytes 16 % (20-55); Metamyelocytes 2 %; Myelocytes 1 %; Platelet Estimate Normal; Segmented Neutrophils 58 % (50-85); Smudge Cells Few; Total Cells Counted 100
[2021-10-07 08:35] LABS: Anisocytosis Slight
[2021-10-07] MEDS: FERROUS SULFATE 325 MG TABLET PO SCH (08:42)
[2021-10-07] MEDS: DONEPEZIL 10 MG TABLET PO SCH (08:42)
[2021-10-07] MEDS: CHOLECALCIFEROL 1,000 UNIT TABLET PO SCH (08:42)
[2021-10-07] MEDS: LINACLOTIDE 145 MCG CAPSULE PO SCH (08:42)
[2021-10-07] MEDS: DIVALPROEX 250 MG TABLET PO SCH ×2 (08:42→21:57)
[2021-10-07] MEDS: BRIMONIDINE/TIMOLOL OPH SOLN 5 ML BOTTLE BOTH EYES SCH ×2 (08:43→21:57)
[2021-10-07] MEDS: amLODIPine 10 MG TABLET PO SCH (08:43)
[2021-10-07] MEDS: DIGOXIN 0.125 MG TABLET PO SCH (08:43)
[2021-10-07] MEDS: PANTOPRAZOLE 40 MG TABLET PO SCH ×2 (08:43→21:57)
[2021-10-07] MEDS: FOLIC ACID 1 MG TABLET PO SCH (08:43)
[2021-10-07] MEDS: MEMANTINE 10 MG TABLET PO SCH ×2 (08:43→21:57)
[2021-10-07] MEDS: INSULIN GLARGINE 100 UNIT/ML SUBCUT SCH (08:43)
[2021-10-07] MEDS: NYSTATIN 500,000 UNIT/5 ML UDCUP SWISH/SWAL SCH ×4 (08:43→21:57)
[2021-10-07] MEDS: carvediloL 12.5 MG TABLET PO SCH ×2 (08:43→17:37)
[2021-10-07] MEDS: CITALOPRAM 40 MG TABLET PO SCH (21:57)
[2021-10-08] MEDS: INSULIN REGULAR 100 UNIT/ML SUBCUT SCH ×4 (00:56→18:01)
[2021-10-08] MEDS: DEXTROSE 5% NACL 0.45% 1,000 ML IV SCH ×2 (00:56→18:01)
[2021-10-08 05:39] LABS: Basophils # 0.1 10*3/uL (0.0-0.2); Basophils % 0.6 % (0.0-0.8); Eosinophils # 0.1 10*3/uL (0.0-0.87); Eosinophils % 0.7 % (0.00-10.9); Hematocrit 26.8 VOL% (35.7-47.0); Hemoglobin 8.1 GM/DL (12.0-16.0); Immature Granulocytes % 5.3 %; Immature Granulocytes Absolute 0.68 #; Lymphocytes # 2.2 10*3/uL (1.4-4.0); Lymphocytes % 17.2 % (21.3-54.2); Mean Corpuscular HGB Conc 30.2 GM/DL (32-36); Mean Corpuscular Volume 96.4 FL (87-102); Mean Platelet Volume 11.7 FL (9.6-12.0); Neutrophils % 67.2 % (38.7-73.9); Platelet Count 195 T/CUMM (130-400); Red Blood Count 2.78 MC/CUMM (3.8-5.5); Red Cell Distribution Width 13.8 % (9.3-17.3); White Blood Count 12.7 T/CUMM (4-12)
[2021-10-08 05:42] LABS: PT Patient Result 10.9 SECS (10.5-12.0)
[2021-10-08 05:55] LABS: Alanine Aminotransferase 16 U/L (13-56); Albumin 1.7 G/DL (3.4-5.0); Alkaline Phosphatase 78 U/L (45-117); Aspartate Amino Transferase 11 U/L (0-37); Bilirubin,Total < 0.39 MG/DL (0.20-1.00); Blood Urea Nitrogen 45 MG/DL (7-18); Calcium 9.1 MG/DL (8.5-10.1); Carbon Dioxide 32 MMOL/L (21-32); Estimated Glom Filtration Rate 39 ML/MIN; Glucose 209 MG/DL (74-106); Osmolality,Calculated 300.1 MOS/KG (273-304); Potassium 4.5 MMOL/L (3.5-5.1); Sodium 142 MMOL/L (136-145); Total Protein 6.3 G/DL (6.4-8.2)
[2021-10-08] MEDS: LEVOTHYROXINE 25 MCG TABLET PO SCH (06:09)
[2021-10-08 06:11] LABS: Eosinophils 1 % (0-10); Hypochromia 1+; Lymphocytes 17 % (20-55); Microcytosis 1+; Myelocytes 1 %; Segmented Neutrophils 69 % (50-85); Total Cells Counted 100
[2021-10-08 06:12] LABS: Ovalocytes Slight
[2021-10-08] MEDS ORDERED: LACTATED RINGERS 1,000 ML IV SCH (08:30)
[2021-10-08] MEDS: PANTOPRAZOLE 40 MG TABLET PO SCH ×2 (10:53→22:19)
[2021-10-08] MEDS: CHOLECALCIFEROL 1,000 UNIT TABLET PO SCH (10:53)
[2021-10-08] MEDS: MEMANTINE 10 MG TABLET PO SCH ×2 (10:53→22:19)
[2021-10-08] MEDS: FOLIC ACID 1 MG TABLET PO SCH (10:54)
[2021-10-08] MEDS: DIVALPROEX 250 MG TABLET PO SCH ×2 (10:54→22:18)
[2021-10-08] MEDS: NYSTATIN 500,000 UNIT/5 ML UDCUP SWISH/SWAL SCH (10:54)
[2021-10-08] MEDS: FERROUS SULFATE 325 MG TABLET PO SCH (10:54)
[2021-10-08] MEDS: DONEPEZIL 10 MG TABLET PO SCH (10:55)
[2021-10-08] MEDS: LINACLOTIDE 145 MCG CAPSULE PO SCH (10:56)
[2021-10-08] MEDS: carvediloL 12.5 MG TABLET PO SCH ×2 (12:18→17:09)
[2021-10-08] MEDS: DIGOXIN 0.125 MG TABLET PO SCH (12:19)
[2021-10-08] MEDS: BRIMONIDINE/TIMOLOL OPH SOLN 5 ML BOTTLE BOTH EYES SCH ×2 (12:19→22:21)
[2021-10-08] MEDS: amLODIPine 10 MG TABLET PO SCH (12:20)
[2021-10-08] MEDS: INSULIN GLARGINE 100 UNIT/ML SUBCUT SCH (12:21)
[2021-10-08] MEDS ORDERED: KETAMINE 500 MG/10 ML VIAL ONE (12:56)
[2021-10-08] MEDS ORDERED: propofoL 200 MG/20 ML VIAL IV ONE (13:12)
[2021-10-08] MEDS ORDERED: LIDOCAINE 2% 5 ML VIAL ONE (13:12)
[2021-10-08 16:30] LABS: Folate > 24.00 NG/ML (5.38-24.0); Vitamin B12 1300 PG/ML (211-911)
[2021-10-08] MEDS: CITALOPRAM 40 MG TABLET PO SCH (22:18)
[2021-10-09] MEDS: INSULIN REGULAR 100 UNIT/ML SUBCUT SCH ×4 (01:05→18:09)
[2021-10-09] MEDS: LEVOTHYROXINE 25 MCG TABLET PO SCH (07:10)
[2021-10-09 08:47] LABS: Basophils # 0.1 10*3/uL (0.0-0.2); Basophils % 0.4 % (0.0-0.8); Eosinophils # 0.1 10*3/uL (0.0-0.87); Eosinophils % 0.8 % (0.00-10.9); Hematocrit 26.5 VOL% (35.7-47.0); Hemoglobin 8.2 GM/DL (12.0-16.0); Immature Granulocytes % 2.7 %; Immature Granulocytes Absolute 0.34 #; Lymphocytes # 1.8 10*3/uL (1.4-4.0); Lymphocytes % 14.2 % (21.3-54.2); Mean Corpuscular HGB Conc 30.9 GM/DL (32-36); Mean Corpuscular Volume 95.7 FL (87-102); Mean Platelet Volume 10.5 FL (9.6-12.0); Monocytes % 6.5 % (1.7-12.7); Neutrophils % 75.4 % (38.7-73.9); Platelet Count 199 T/CUMM (130-400); Red Blood Count 2.77 MC/CUMM (3.8-5.5); Red Cell Distribution Width 13.5 % (9.3-17.3); White Blood Count 12.6 T/CUMM (4-12)
[2021-10-09 09:04] LABS: Calcium 8.9 MG/DL (8.5-10.1); Osmolality,Calculated 289.3 MOS/KG (273-304); Potassium 4.4 MMOL/L (3.5-5.1)
[2021-10-09] MEDS: DIGOXIN 0.125 MG TABLET PO SCH (09:42)
[2021-10-09] MEDS: carvediloL 12.5 MG TABLET PO SCH ×2 (09:42→18:08)
[2021-10-09] MEDS: amLODIPine 10 MG TABLET PO SCH (09:42)
[2021-10-09] MEDS: FOLIC ACID 1 MG TABLET PO SCH (09:42)
[2021-10-09] MEDS: MEMANTINE 10 MG TABLET PO SCH ×2 (09:42→21:47)
[2021-10-09] MEDS: DONEPEZIL 10 MG TABLET PO SCH (09:43)
[2021-10-09] MEDS: LINACLOTIDE 145 MCG CAPSULE PO SCH (09:43)
[2021-10-09] MEDS: INSULIN GLARGINE 100 UNIT/ML SUBCUT SCH (09:44)
[2021-10-09] MEDS: CHOLECALCIFEROL 1,000 UNIT TABLET PO SCH (09:44)
[2021-10-09] MEDS: BRIMONIDINE/TIMOLOL OPH SOLN 5 ML BOTTLE BOTH EYES SCH ×2 (09:49→21:52)
[2021-10-09] MEDS: FERROUS SULFATE 325 MG TABLET PO SCH (11:01)
[2021-10-09] MEDS: DIVALPROEX 250 MG TABLET PO SCH (11:01)
[2021-10-09] MEDS: PANTOPRAZOLE 40 MG TABLET PO SCH (11:02)
[2021-10-09] MEDS: OMEPRAZOLE ODT 20 MG TABLET PEG SCH (21:47)
[2021-10-09] MEDS: CITALOPRAM 40 MG TABLET PO SCH (21:47)
[2021-10-09] MEDS: DIVALPROEX SPRINKLE 125 MG CAPSULE PER TUBE SCH (21:48)
[2021-10-10] MEDS: INSULIN REGULAR 100 UNIT/ML SUBCUT SCH ×3 (01:51→12:03)
[2021-10-10 05:36] LABS: Basophils # 0.1 10*3/uL (0.0-0.2); Basophils % 0.5 % (0.0-0.8); Eosinophils # 0.1 10*3/uL (0.0-0.87); Hematocrit 24.6 VOL% (35.7-47.0); Hemoglobin 7.7 GM/DL (12.0-16.0); Immature Granulocytes % 2.4 %; Lymphocytes # 1.8 10*3/uL (1.4-4.0); Lymphocytes % 14.4 % (21.3-54.2); Mean Corpuscular HGB Conc 31.3 GM/DL (32-36); Mean Corpuscular Volume 95.3 FL (87-102); Mean Platelet Volume 11.3 FL (9.6-12.0); Monocytes % 6.2 % (1.7-12.7); Neutrophils % 75.5 % (38.7-73.9); Platelet Count 200 T/CUMM (130-400); Red Blood Count 2.58 MC/CUMM (3.8-5.5); Red Cell Distribution Width 13.3 % (9.3-17.3); White Blood Count 12.5 T/CUMM (4-12)
[2021-10-10 06:05] LABS: Calcium 8.6 MG/DL (8.5-10.1); Osmolality,Calculated 295.1 MOS/KG (273-304); Potassium 4.1 MMOL/L (3.5-5.1)
[2021-10-10] MEDS: LEVOTHYROXINE 25 MCG TABLET PO SCH (06:35)
[2021-10-10] MEDS: MEMANTINE 10 MG TABLET PO SCH (08:59)
[2021-10-10] MEDS: DIGOXIN 0.125 MG TABLET PO SCH (08:59)
[2021-10-10] MEDS: CHOLECALCIFEROL 1,000 UNIT TABLET PO SCH (08:59)
[2021-10-10] MEDS: DONEPEZIL 10 MG TABLET PO SCH (08:59)
[2021-10-10] MEDS: INSULIN GLARGINE 100 UNIT/ML SUBCUT SCH (08:59)
[2021-10-10] MEDS ORDERED: FERROUS SULFATE 300 MG/5 ML UDCUP PO SCH (09:00)
[2021-10-10] MEDS: FOLIC ACID 1 MG TABLET PO SCH (09:00)
[2021-10-10] MEDS: DIVALPROEX SPRINKLE 125 MG CAPSULE PER TUBE SCH (09:00)
[2021-10-10] MEDS: carvediloL 12.5 MG TABLET PO SCH (09:00)
[2021-10-10] MEDS: OMEPRAZOLE ODT 20 MG TABLET PEG SCH (09:00)
[2021-10-10] MEDS: amLODIPine 10 MG TABLET PO SCH (09:00)
[2021-10-10] MEDS: LINACLOTIDE 145 MCG CAPSULE PO SCH (09:00)
[2021-10-10] MEDS: BRIMONIDINE/TIMOLOL OPH SOLN 5 ML BOTTLE BOTH EYES SCH (09:01)
[2021-10-10 12:29] VITALS: BP 152/51
== END 2021-10-10 15:51 | disposition home health service (06) | DRG 881 ==
LOC: EDUNIT# → EDBD → N.ED 10:35 → N.EDINP 10:35 → SUATTDRO 14:26 → N.3E 16:06 → SUATTDRO 17:07 → N.3E 17:10 → N.5E 09-26 00:28
PROVIDERS: ADMIT Internal Medicine Geriatric Medicine; ATTEND Internal Medicine
PROC: EGDWPEG (ICD-10-PCS; 2021-10-08 11:35)

== ENCOUNTER 2021-10-15 14:55 | Inpatient (IN) ==
[2021-10-15] MEDS ORDERED: ACETAMINOPHEN 500 MG TABLET PO STA (16:11)
[2021-10-15] MEDS ORDERED: ACETAMINOPHEN 650 MG SUPP RECTAL STA (17:23)
[2021-10-15 17:25] LABS: Basophils % 0.2 % (0.0-0.8); Hematocrit 32.9 VOL% (35.7-47.0); Immature Granulocytes Absolute 0.35 #; Lymphocytes % 17.3 % (21.3-54.2); Mean Corpuscular HGB Conc 30.4 GM/DL (32-36); Mean Corpuscular Volume 96.8 FL (87-102); Mean Platelet Volume 10.9 FL (9.6-12.0); Monocytes % 9.1 % (1.7-12.7); NRBC # 0.05 10*3/uL; Neutrophils % 70.4 % (38.7-73.9); Platelet Count 240 T/CUMM (130-400); Red Cell Distribution Width 13.9 % (9.3-17.3); White Blood Count 11.8 T/CUMM (4-12)
[2021-10-15 17:30] LABS: Bilirubin,Urine Negative (Negative); Blood, Urine Small mg/dL (Negative); Glucose,Urine (UA) >=500 mg/dL (Negative); Ketones,Urine Negative (Negative); Mucus,Urine Occasional /LPF (Occasional); Nitrite,Urine Negative (Negative); Protein,Urine >=500 MG/DL; RBC,Urine 28 /HPF (0-4); Squamous Epithelial Cell,Urine Occasional /HPF (0-10); Urine Appearance Slightly Hazy (Clear); Urine Color Yellow (Yellow); Urine Specific Gravity 1.014 (1.001-1.035); Urine Urobilinogen < 2.0 EU/DL (<2.0)
[2021-10-15] MEDS ORDERED: cefTRIAXone 1,000 MG in SODIUM CHLORIDE 0.9% 100 ML IV STA (17:44)
[2021-10-15 17:52] LABS: Alanine Aminotransferase 29 U/L (13-56); Albumin 2.2 G/DL (3.4-5.0); Alkaline Phosphatase 75 U/L (45-117); Aspartate Amino Transferase 26 U/L (0-37); Bilirubin,Total < 0.39 MG/DL (0.20-1.00); Blood Urea Nitrogen 52 MG/DL (7-18); Calcium 9.2 MG/DL (8.5-10.1); Carbon Dioxide 26 MMOL/L (21-32); Estimated Glom Filtration Rate 31 ML/MIN; Glucose 337 MG/DL (74-106); Osmolality,Calculated 329.6 MOS/KG (273-304); Potassium 3.8 MMOL/L (3.5-5.1); Sodium 153 MMOL/L (136-145); Total Protein 7.9 G/DL (6.4-8.2)
[2021-10-15] MEDS ORDERED: INSULIN REGULAR 100 UNIT/ML SUBCUT STA (18:55)
[2021-10-15] MEDS ORDERED: hydrALAZINE 20 MG/1 ML VIAL IV PRN (21:07)
[2021-10-15] MEDS ORDERED: MAGNESIUM SULF RIDER 4 GM/100 ML PREMIX IV PRN (21:07)
[2021-10-15] MEDS ORDERED: MAGNESIUM SULF RIDER 2 GM/50 ML PREMIX IV PRN (21:07)
[2021-10-15] MEDS ORDERED: ACETAMINOPHEN 325 MG TABLET PO PRN (21:07)
[2021-10-15] MEDS ORDERED: ONDANSETRON 4 MG/2 ML VIAL IV PRN (21:07)
[2021-10-15] MEDS ORDERED: GLUCAGON 1 MG VIAL IM PRN (21:07)
[2021-10-15] MEDS ORDERED: POTASSIUM CHLORIDE RIDER 10 MEQ/100 ML PREMIX IV PRN (21:11)
[2021-10-15] MEDS ORDERED: DEXTROSE 10% 250 ML BAG IV PRN (21:31)
[2021-10-15] MEDS ORDERED: VANCOMYCIN INJ 1,000 MG in SODIUM CHLORIDE 0.9% 250 ML IV STA (22:22)
[2021-10-15] MEDS: MEMANTINE 10 MG TABLET PO SCH (23:26)
[2021-10-15] MEDS: CITALOPRAM 20 MG TABLET PO SCH (23:27)
[2021-10-15] MEDS: DONEPEZIL 10 MG TABLET PO SCH (23:27)
[2021-10-15] MEDS: carvediloL 12.5 MG TABLET PO SCH (23:27)
[2021-10-15] MEDS: ENOXAPARIN 40 MG/0.4 ML SYRINGE SUBCUT SCH (23:32)
[2021-10-15] MEDS: SODIUM CHLORIDE 0.45% 1,000 ML IV SCH (23:45)
[2021-10-16 00:42] LABS: PT Patient Result 11.3 SECS (10.5-12.0)
[2021-10-16 00:48] LABS: Alanine Aminotransferase 24 U/L (13-56); Albumin 2.1 G/DL (3.4-5.0); Alkaline Phosphatase 69 U/L (45-117); Aspartate Amino Transferase 20 U/L (0-37); Bilirubin,Total < 0.39 MG/DL (0.20-1.00); Blood Urea Nitrogen 61 MG/DL (7-18); Calcium 9.4 MG/DL (8.5-10.1); Carbon Dioxide 26 MMOL/L (21-32); Estimated Glom Filtration Rate 30 ML/MIN; Glucose 270 MG/DL (74-106); Osmolality,Calculated 331.4 MOS/KG (273-304); Potassium 3.4 MMOL/L (3.5-5.1); Sodium 154 MMOL/L (136-145); Total Protein 7.5 G/DL (6.4-8.2)
[2021-10-16] MEDS: AZITHROMYCIN INJ 500 MG in SODIUM CHLORIDE 0.9% 250 ML IV SCH (00:51)
[2021-10-16] MEDS ORDERED: REMDESIVIR 200 MG in SODIUM CHLORIDE 0.9% 210 ML IV ONE (01:00)
[2021-10-16] MEDS: BRIMONIDINE/TIMOLOL OPH SOLN 5 ML BOTTLE BOTH EYES SCH ×2 (02:17→10:40)
[2021-10-16] MEDS: PIPERACILLIN/TAZOBACTAM 3,375 MG in SODIUM CHLORIDE 0.9% 100 ML IV SCH ×6 (02:56→17:03)
[2021-10-16] MEDS: INSULIN REGULAR 100 UNIT/ML SUBCUT SCH ×4 (03:15→17:56)
[2021-10-16] MEDS: VALPROIC ACID INJ 250 MG in SODIUM CHLORIDE 0.9% 100 ML IV SCH ×3 (03:55→23:46)
[2021-10-16 05:31] LABS: Basophils % 0.2 % (0.0-0.8); Hematocrit 26.9 VOL% (35.7-47.0); Immature Granulocytes % 2.6 %; Immature Granulocytes Absolute 0.35 #; Lymphocytes # 2.6 10*3/uL (1.4-4.0); Lymphocytes % 19.3 % (21.3-54.2); Mean Corpuscular HGB Conc 29.7 GM/DL (32-36); Mean Corpuscular Volume 99.6 FL (87-102); Mean Platelet Volume 11.3 FL (9.6-12.0); Monocytes % 7.2 % (1.7-12.7); NRBC # 0.02 10*3/uL; Neutrophils % 70.7 % (38.7-73.9); Platelet Count 201 T/CUMM (130-400); White Blood Count 13.4 T/CUMM (4-12)
[2021-10-16 05:50] LABS: Band Neutrophils 1 % (0-10); Hypochromia 1+; Lymphocytes 23 % (20-55); Microcytosis 1+; Platelet Estimate Adequate; Segmented Neutrophils 73 % (50-85); Total Cells Counted 100
[2021-10-16 06:05] LABS: Ferritin 4462.2 ng/mL (8-252); Thyroid Stimulating Hormone 4.48 uIU/ml (0.358-3.74)
[2021-10-16] MEDS ORDERED: LEVOTHYROXINE 25 MCG TABLET PO SCH (06:30)
[2021-10-16] MEDS: PANTOPRAZOLE 40 MG VIAL IV SCH (10:23)
[2021-10-16] MEDS: SODIUM CHLORIDE 0.45% 1,000 ML IV SCH ×2 (10:30→16:49)
[2021-10-16] MEDS: FERROUS SULFATE 325 MG TABLET PO SCH (10:37)
[2021-10-16] MEDS: DIGOXIN 0.125 MG TABLET PO SCH (10:37)
[2021-10-16] MEDS: INSULIN GLARGINE 100 UNIT/ML SUBCUT SCH (10:37)
[2021-10-16] MEDS: ZINC GLUCONATE 50 MG TABLET PO SCH (10:37)
[2021-10-16] MEDS: DONEPEZIL 10 MG TABLET PO SCH ×2 (10:37→21:56)
[2021-10-16] MEDS: cloNIDine 0.1 MG TABLET PO SCH ×3 (10:37→21:56)
[2021-10-16] MEDS: amLODIPine 10 MG TABLET PO SCH (10:37)
[2021-10-16] MEDS: MEMANTINE 10 MG TABLET PO SCH ×2 (10:37→21:56)
[2021-10-16] MEDS: CHOLECALCIFEROL 1,000 UNIT TABLET PO SCH (10:37)
[2021-10-16] MEDS: carvediloL 12.5 MG TABLET PO SCH ×2 (10:37→21:56)
[2021-10-16] MEDS: ASCORBIC ACID 500 MG TABLET PO SCH ×2 (10:37→21:56)
[2021-10-16] MEDS: LINACLOTIDE 145 MCG CAPSULE PO SCH (10:50)
[2021-10-16] MEDS: ENOXAPARIN 40 MG/0.4 ML SYRINGE SUBCUT SCH (21:56)
[2021-10-16] MEDS: CITALOPRAM 20 MG TABLET PO SCH (21:56)
[2021-10-17] MEDS: AZITHROMYCIN INJ 500 MG in SODIUM CHLORIDE 0.9% 250 ML IV SCH ×2 (00:49→23:41)
[2021-10-17] MEDS: INSULIN REGULAR 100 UNIT/ML SUBCUT SCH ×4 (00:50→18:09)
[2021-10-17] MEDS: BRIMONIDINE/TIMOLOL OPH SOLN 5 ML BOTTLE BOTH EYES SCH ×3 (01:21→22:21)
[2021-10-17] MEDS: PIPERACILLIN/TAZOBACTAM 3,375 MG in SODIUM CHLORIDE 0.9% 100 ML IV SCH ×3 (02:05→18:09)
[2021-10-17 05:02] LABS: Albumin 1.7 G/DL (3.4-5.0); Bilirubin,Total 0.5 MG/DL (0.20-1.00); Calcium 7.5 MG/DL (8.5-10.1); Osmolality,Calculated 325.7 MOS/KG (273-304); Potassium 3.2 MMOL/L (3.5-5.1); Total Protein 6.3 G/DL (6.4-8.2)
[2021-10-17] MEDS: LEVOTHYROXINE 25 MCG TABLET PO SCH (06:04)
[2021-10-17] MEDS: PANTOPRAZOLE 40 MG VIAL IV SCH (10:17)
[2021-10-17] MEDS: REMDESIVIR 100 MG in SODIUM CHLORIDE 0.9% 100 ML IV SCH (10:18)
[2021-10-17] MEDS: INSULIN GLARGINE 100 UNIT/ML SUBCUT SCH (10:18)
[2021-10-17] MEDS: ZINC GLUCONATE 50 MG TABLET PO SCH (10:19)
[2021-10-17] MEDS: cloNIDine 0.1 MG TABLET PO SCH ×3 (10:19→22:20)
[2021-10-17] MEDS: ASCORBIC ACID 500 MG TABLET PO SCH ×2 (10:19→22:21)
[2021-10-17] MEDS: LINACLOTIDE 145 MCG CAPSULE PO SCH (10:19)
[2021-10-17] MEDS: CHOLECALCIFEROL 1,000 UNIT TABLET PO SCH (10:19)
[2021-10-17] MEDS: amLODIPine 10 MG TABLET PO SCH (10:20)
[2021-10-17] MEDS: DONEPEZIL 10 MG TABLET PO SCH ×2 (10:20→22:19)
[2021-10-17] MEDS: carvediloL 12.5 MG TABLET PO SCH ×2 (10:20→22:20)
[2021-10-17] MEDS: MEMANTINE 10 MG TABLET PO SCH ×2 (10:20→22:19)
[2021-10-17] MEDS: DIGOXIN 0.125 MG TABLET PO SCH (10:20)
[2021-10-17] MEDS: FERROUS SULFATE 325 MG TABLET PO SCH (10:20)
[2021-10-17] MEDS: SODIUM CHLORIDE 0.45% 1,000 ML IV SCH (10:21)
[2021-10-17] MEDS: VALPROIC ACID INJ 250 MG in SODIUM CHLORIDE 0.9% 100 ML IV SCH ×2 (12:52→22:21)
[2021-10-17] MEDS ORDERED: POTASSIUM CHLORIDE 20 MEQ TABLET PO ONE (15:09)
[2021-10-17] MEDS ORDERED: SODIUM CHLORIDE 23.4% CONC INJ 38.5 MEQ, SODIUM BICARB INJ 50 MEQ in STERILE WATER INJ ... IV SCH (16:00)
[2021-10-17] MEDS: ENOXAPARIN 40 MG/0.4 ML SYRINGE SUBCUT SCH (22:19)
[2021-10-17] MEDS: CITALOPRAM 20 MG TABLET PO SCH (22:20)
[2021-10-18] MEDS: INSULIN REGULAR 100 UNIT/ML SUBCUT SCH ×4 (01:28→17:19)
[2021-10-18] MEDS: PIPERACILLIN/TAZOBACTAM 3,375 MG in SODIUM CHLORIDE 0.9% 100 ML IV SCH ×3 (01:29→17:19)
[2021-10-18] MEDS: LEVOTHYROXINE 25 MCG TABLET PO SCH (05:43)
[2021-10-18 06:03] LABS: Basophils % 0.1 % (0.0-0.8); Eosinophils # 0.1 10*3/uL (0.0-0.87); Eosinophils % 1.1 % (0.00-10.9); Hematocrit 25.2 VOL% (35.7-47.0); Hemoglobin 7.9 GM/DL (12.0-16.0); Immature Granulocytes % 3.8 %; Immature Granulocytes Absolute 0.36 #; Lymphocytes # 1.8 10*3/uL (1.4-4.0); Lymphocytes % 18.6 % (21.3-54.2); Mean Corpuscular HGB Conc 31.3 GM/DL (32-36); Mean Corpuscular Volume 95.1 FL (87-102); Mean Platelet Volume 11.5 FL (9.6-12.0); Monocytes % 4.8 % (1.7-12.7); Neutrophils % 71.6 % (38.7-73.9); Platelet Count 151 T/CUMM (130-400); Red Blood Count 2.65 MC/CUMM (3.8-5.5); Red Cell Distribution Width 13.8 % (9.3-17.3); White Blood Count 9.4 T/CUMM (4-12)
[2021-10-18 06:23] LABS: Band Neutrophils 3 % (0-10); Eosinophils 3 % (0-10); Hypochromia 1+; Lymphocytes 22 % (20-55); Microcytosis 1+; Platelet Estimate Adequate; Segmented Neutrophils 65 % (50-85); Total Cells Counted 100
[2021-10-18 06:24] LABS: Alanine Aminotransferase 48 U/L (13-56); Albumin 1.8 G/DL (3.4-5.0); Alkaline Phosphatase 104 U/L (45-117); Aspartate Amino Transferase 30 U/L (0-37); Bilirubin,Total < 0.39 MG/DL (0.20-1.00); Blood Urea Nitrogen 48 MG/DL (7-18); Calcium 7.8 MG/DL (8.5-10.1); Carbon Dioxide 23 MMOL/L (21-32); Estimated Glom Filtration Rate 37 ML/MIN; Glucose 161 MG/DL (74-106); Osmolality,Calculated 316.7 MOS/KG (273-304); Potassium 3.2 MMOL/L (3.5-5.1); Sodium 152 MMOL/L (136-145); Total Protein 6.3 G/DL (6.4-8.2)
[2021-10-18 06:43] LABS: Uric Acid 4.5 MG/DL (2.6-6.0)
[2021-10-18] MEDS: DONEPEZIL 10 MG TABLET PO SCH ×2 (10:40→23:07)
[2021-10-18] MEDS: LINACLOTIDE 145 MCG CAPSULE PO SCH (10:40)
[2021-10-18] MEDS: amLODIPine 10 MG TABLET PO SCH (10:41)
[2021-10-18] MEDS: FERROUS SULFATE 325 MG TABLET PO SCH (10:41)
[2021-10-18] MEDS: INSULIN GLARGINE 100 UNIT/ML SUBCUT SCH (10:41)
[2021-10-18] MEDS: BRIMONIDINE/TIMOLOL OPH SOLN 5 ML BOTTLE BOTH EYES SCH ×2 (10:41→23:08)
[2021-10-18] MEDS: cloNIDine 0.1 MG TABLET PO SCH ×3 (10:41→23:07)
[2021-10-18] MEDS: DIGOXIN 0.125 MG TABLET PO SCH (10:41)
[2021-10-18] MEDS: carvediloL 12.5 MG TABLET PO SCH ×2 (10:41→23:07)
[2021-10-18] MEDS: MEMANTINE 10 MG TABLET PO SCH ×2 (10:41→23:07)
[2021-10-18] MEDS: PANTOPRAZOLE 40 MG VIAL IV SCH (10:42)
[2021-10-18] MEDS: REMDESIVIR 100 MG in SODIUM CHLORIDE 0.9% 100 ML IV SCH (10:42)
[2021-10-18] MEDS: CHOLECALCIFEROL 1,000 UNIT TABLET PO SCH (10:42)
[2021-10-18] MEDS: ASCORBIC ACID 500 MG TABLET PO SCH ×2 (10:42→23:07)
[2021-10-18] MEDS: ZINC GLUCONATE 50 MG TABLET PO SCH (10:43)
[2021-10-18] MEDS: VALPROIC ACID INJ 250 MG in SODIUM CHLORIDE 0.9% 100 ML IV SCH ×2 (12:20→23:11)
[2021-10-18] MEDS ORDERED: POTASSIUM CHLORIDE 20 MEQ TABLET PO ONE (14:53)
[2021-10-18] MEDS ORDERED: SODIUM CHLORIDE 0.9% 1,000 ML IV PRN (14:54)
[2021-10-18] MEDS: POTASSIUM CHLORIDE 20 MEQ TABLET PO PRN ×2 (15:00→17:02)
[2021-10-18] MEDS: ENOXAPARIN 40 MG/0.4 ML SYRINGE SUBCUT SCH (23:06)
[2021-10-18] MEDS: CITALOPRAM 20 MG TABLET PO SCH (23:08)
[2021-10-19] MEDS: INSULIN REGULAR 100 UNIT/ML SUBCUT SCH ×4 (00:44→17:54)
[2021-10-19] MEDS: AZITHROMYCIN INJ 500 MG in SODIUM CHLORIDE 0.9% 250 ML IV SCH ×2 (00:46→23:55)
[2021-10-19] MEDS: DEXTROSE 5% 1,000 ML IV SCH ×2 (00:48→12:48)
[2021-10-19] MEDS: PIPERACILLIN/TAZOBACTAM 3,375 MG in SODIUM CHLORIDE 0.9% 100 ML IV SCH ×3 (02:09→17:08)
[2021-10-19] MEDS: LEVOTHYROXINE 25 MCG TABLET PO SCH (06:12)
[2021-10-19 07:12] LABS: Basophils % 0.1 % (0.0-0.8); Eosinophils # 0.1 10*3/uL (0.0-0.87); Eosinophils % 1.4 % (0.00-10.9); Hematocrit 23.2 VOL% (35.7-47.0); Hemoglobin 7.2 GM/DL (12.0-16.0); Immature Granulocytes % 4.7 %; Immature Granulocytes Absolute 0.42 #; Lymphocytes # 1.8 10*3/uL (1.4-4.0); Lymphocytes % 19.6 % (21.3-54.2); Mean Corpuscular Volume 93.5 FL (87-102); Mean Platelet Volume 11.5 FL (9.6-12.0); Monocytes % 3.8 % (1.7-12.7); NRBC # 0.02 10*3/uL; Neutrophils % 70.4 % (38.7-73.9); Platelet Count 139 T/CUMM (130-400); Red Blood Count 2.48 MC/CUMM (3.8-5.5); Red Cell Distribution Width 13.6 % (9.3-17.3)
[2021-10-19 07:33] LABS: Anisocytosis Slight; Band Neutrophils 3 % (0-10); Eosinophils 5 % (0-10); Lymphocytes 21 % (20-55); Macrocytosis Slight; Metamyelocytes 3 %; Platelet Estimate Adequate; Segmented Neutrophils 67 % (50-85); Total Cells Counted 100
[2021-10-19 07:34] LABS: Alanine Aminotransferase 37 U/L (13-56); Albumin 1.7 G/DL (3.4-5.0); Alkaline Phosphatase 106 U/L (45-117); Aspartate Amino Transferase 33 U/L (0-37); Bilirubin,Total < 0.39 MG/DL (0.20-1.00); Blood Urea Nitrogen 35 MG/DL (7-18); Calcium 7.7 MG/DL (8.5-10.1); Carbon Dioxide 24 MMOL/L (21-32); Estimated Glom Filtration Rate 55 ML/MIN; Glucose 204 MG/DL (74-106); Osmolality,Calculated 299.8 MOS/KG (273-304); Potassium 3.6 MMOL/L (3.5-5.1); Sodium 144 MMOL/L (136-145); Total Protein 5.8 G/DL (6.4-8.2)
[2021-10-19 07:50] LABS: Calcium 7.4 MG/DL (8.5-10.1); Osmolality,Calculated 304.6 MOS/KG (273-304); Potassium 3.7 MMOL/L (3.5-5.1)
[2021-10-19] MEDS: ASCORBIC ACID 500 MG TABLET PO SCH ×2 (10:00→22:03)
[2021-10-19] MEDS: DIGOXIN 0.125 MG TABLET PO SCH (10:00)
[2021-10-19] MEDS: INSULIN GLARGINE 100 UNIT/ML SUBCUT SCH (10:01)
[2021-10-19] MEDS: CHOLECALCIFEROL 1,000 UNIT TABLET PO SCH (10:01)
[2021-10-19] MEDS: MEMANTINE 10 MG TABLET PO SCH ×2 (10:01→22:03)
[2021-10-19] MEDS: FERROUS SULFATE 325 MG TABLET PO SCH (10:02)
[2021-10-19] MEDS: amLODIPine 10 MG TABLET PO SCH (10:02)
[2021-10-19] MEDS: cloNIDine 0.1 MG TABLET PO SCH ×3 (10:02→22:08)
[2021-10-19] MEDS: DONEPEZIL 10 MG TABLET PO SCH ×2 (10:02→22:03)
[2021-10-19] MEDS: carvediloL 12.5 MG TABLET PO SCH ×2 (10:02→22:03)
[2021-10-19] MEDS: ZINC GLUCONATE 50 MG TABLET PO SCH (10:02)
[2021-10-19] MEDS: LINACLOTIDE 145 MCG CAPSULE PO SCH (10:03)
[2021-10-19] MEDS: PANTOPRAZOLE 40 MG VIAL IV SCH (10:03)
[2021-10-19] MEDS: BRIMONIDINE/TIMOLOL OPH SOLN 5 ML BOTTLE BOTH EYES SCH ×2 (10:04→22:24)
[2021-10-19] MEDS ORDERED: MAGNESIUM SULF RIDER 2 GM/50 ML PREMIX IV ONE (10:41)
[2021-10-19] MEDS: REMDESIVIR 100 MG in SODIUM CHLORIDE 0.9% 100 ML IV SCH (13:19)
[2021-10-19] MEDS: VALPROIC ACID INJ 250 MG in SODIUM CHLORIDE 0.9% 100 ML IV SCH ×2 (16:51→22:04)
[2021-10-19] MEDS: CITALOPRAM 20 MG TABLET PO SCH (22:03)
[2021-10-19] MEDS: ENOXAPARIN 40 MG/0.4 ML SYRINGE SUBCUT SCH (22:09)
[2021-10-20] MEDS: INSULIN REGULAR 100 UNIT/ML SUBCUT SCH ×4 (01:24→18:15)
[2021-10-20] MEDS: PIPERACILLIN/TAZOBACTAM 3,375 MG in SODIUM CHLORIDE 0.9% 100 ML IV SCH ×2 (05:10→15:50)
[2021-10-20 05:59] LABS: Basophils # 0.1 10*3/uL (0.0-0.2); Basophils % 0.5 % (0.0-0.8); Eosinophils # 0.2 10*3/uL (0.0-0.87); Eosinophils % 1.4 % (0.00-10.9); Hematocrit 33.2 VOL% (35.7-47.0); Hemoglobin 10.9 GM/DL (12.0-16.0); Immature Granulocytes % 5.1 %; Immature Granulocytes Absolute 0.56 #; Lymphocytes # 1.9 10*3/uL (1.4-4.0); Lymphocytes % 17.3 % (21.3-54.2); Mean Corpuscular HGB Conc 32.8 GM/DL (32-36); Mean Corpuscular Volume 89.5 FL (87-102); Mean Platelet Volume 11.8 FL (9.6-12.0); Monocytes % 4.5 % (1.7-12.7); Neutrophils % 71.2 % (38.7-73.9); Platelet Count 139 T/CUMM (130-400); Red Blood Count 3.71 MC/CUMM (3.8-5.5); Red Cell Distribution Width 13.9 % (9.3-17.3)
[2021-10-20 06:13] LABS: Calcium 8.2 MG/DL (8.5-10.1); Potassium 3.5 MMOL/L (3.5-5.1)
[2021-10-20 06:16] LABS: Alanine Aminotransferase 69 U/L (13-56); Albumin 1.8 G/DL (3.4-5.0); Alkaline Phosphatase 125 U/L (45-117); Aspartate Amino Transferase 71 U/L (0-37); Bilirubin,Total < 0.39 MG/DL (0.20-1.00); Blood Urea Nitrogen 30 MG/DL (7-18); Calcium 8.1 MG/DL (8.5-10.1); Carbon Dioxide 24 MMOL/L (21-32); Estimated Glom Filtration Rate 61 ML/MIN; Glucose 217 MG/DL (74-106); Potassium 3.5 MMOL/L (3.5-5.1); Sodium 143 MMOL/L (136-145); Total Protein 6.1 G/DL (6.4-8.2)
[2021-10-20] MEDS: LEVOTHYROXINE 25 MCG TABLET PO SCH (06:26)
[2021-10-20 06:33] LABS: Eosinophils 3 % (0-10); Lymphocytes 17 % (20-55); Platelet Estimate Normal; Segmented Neutrophils 73 % (50-85); Total Cells Counted 100
[2021-10-20] MEDS: DIGOXIN 0.125 MG TABLET PO SCH (10:12)
[2021-10-20] MEDS: cloNIDine 0.1 MG TABLET PO SCH ×3 (10:12→21:46)
[2021-10-20] MEDS: ASCORBIC ACID 500 MG TABLET PO SCH ×2 (10:13→21:46)
[2021-10-20] MEDS: MEMANTINE 10 MG TABLET PO SCH ×2 (10:13→21:47)
[2021-10-20] MEDS: PANTOPRAZOLE 40 MG VIAL IV SCH (10:13)
[2021-10-20] MEDS: carvediloL 12.5 MG TABLET PO SCH ×2 (10:13→21:47)
[2021-10-20] MEDS: ZINC GLUCONATE 50 MG TABLET PO SCH (10:13)
[2021-10-20] MEDS: DONEPEZIL 10 MG TABLET PO SCH ×2 (10:13→21:47)
[2021-10-20] MEDS: INSULIN GLARGINE 100 UNIT/ML SUBCUT SCH (10:13)
[2021-10-20] MEDS: CHOLECALCIFEROL 1,000 UNIT TABLET PO SCH (10:13)
[2021-10-20] MEDS: BRIMONIDINE/TIMOLOL OPH SOLN 5 ML BOTTLE BOTH EYES SCH ×2 (10:13→21:46)
[2021-10-20] MEDS: amLODIPine 10 MG TABLET PO SCH (10:13)
[2021-10-20] MEDS: FERROUS SULFATE 325 MG TABLET PO SCH (10:13)
[2021-10-20] MEDS: REMDESIVIR 100 MG in SODIUM CHLORIDE 0.9% 100 ML IV SCH (10:14)
[2021-10-20] MEDS: LINACLOTIDE 145 MCG CAPSULE PO SCH (10:25)
[2021-10-20] MEDS ORDERED: FUROSEMIDE 40 MG/4 ML VIAL IV ONE (12:04)
[2021-10-20] MEDS: VALPROIC ACID INJ 250 MG in SODIUM CHLORIDE 0.9% 100 ML IV SCH ×2 (12:45→22:08)
[2021-10-20] MEDS: DEXTROSE 5% 1,000 ML IV SCH ×2 (15:50→17:08)
[2021-10-20] MEDS: ENOXAPARIN 40 MG/0.4 ML SYRINGE SUBCUT SCH (21:46)
[2021-10-20] MEDS: CITALOPRAM 20 MG TABLET PO SCH (21:47)
[2021-10-21] MEDS: AZITHROMYCIN INJ 500 MG in SODIUM CHLORIDE 0.9% 250 ML IV SCH (00:27)
[2021-10-21] MEDS: PIPERACILLIN/TAZOBACTAM 3,375 MG in SODIUM CHLORIDE 0.9% 100 ML IV SCH ×3 (00:36→17:22)
[2021-10-21] MEDS: INSULIN REGULAR 100 UNIT/ML SUBCUT SCH ×3 (00:53→12:51)
[2021-10-21] MEDS: DEXTROSE 5% 1,000 ML IV SCH (06:29)
[2021-10-21] MEDS: LEVOTHYROXINE 25 MCG TABLET PO SCH (06:39)
[2021-10-21] MEDS ORDERED: FUROSEMIDE 40 MG/4 ML VIAL IV ONE (10:19)
[2021-10-21] MEDS: LINACLOTIDE 145 MCG CAPSULE PO SCH (10:58)
[2021-10-21] MEDS: DONEPEZIL 10 MG TABLET PO SCH (10:59)
[2021-10-21] MEDS: amLODIPine 10 MG TABLET PO SCH (10:59)
[2021-10-21] MEDS: MEMANTINE 10 MG TABLET PO SCH (10:59)
[2021-10-21] MEDS: cloNIDine 0.1 MG TABLET PO SCH ×2 (10:59→17:21)
[2021-10-21] MEDS: FERROUS SULFATE 325 MG TABLET PO SCH (10:59)
[2021-10-21] MEDS: carvediloL 12.5 MG TABLET PO SCH (10:59)
[2021-10-21] MEDS: ASCORBIC ACID 500 MG TABLET PO SCH (10:59)
[2021-10-21] MEDS: CHOLECALCIFEROL 1,000 UNIT TABLET PO SCH (11:00)
[2021-10-21] MEDS: ZINC GLUCONATE 50 MG TABLET PO SCH (11:00)
[2021-10-21] MEDS: DIGOXIN 0.125 MG TABLET PO SCH (11:00)
[2021-10-21] MEDS: BRIMONIDINE/TIMOLOL OPH SOLN 5 ML BOTTLE BOTH EYES SCH (11:01)
[2021-10-21] MEDS: PANTOPRAZOLE 40 MG VIAL IV SCH (11:01)
[2021-10-21] MEDS: INSULIN GLARGINE 100 UNIT/ML SUBCUT SCH (11:02)
[2021-10-21] MEDS: VALPROIC ACID INJ 250 MG in SODIUM CHLORIDE 0.9% 100 ML IV SCH (12:52)
[2021-10-21 17:17] VITALS: BP 147/65
== END 2021-10-21 17:57 | disposition home health service (06) | DRG 177 ==
LOC: EDBD → EDUNIT# → N.ED 14:55 → SUATTDRO 21:07 → N.EDINP 21:07 → N.3E 10-16 15:22
PROVIDERS: ADMIT Internal Medicine; ATTEND Hospitalist

== ENCOUNTER 2021-11-19 10:06 | Observation (INO) ==
[2021-11-19 11:44] LABS: Basophils % 0.3 % (0.0-0.8); Eosinophils # 0.1 10*3/uL (0.0-0.87); Eosinophils % 1.2 % (0.00-10.9); Hematocrit 24.1 VOL% (35.7-47.0); Hemoglobin 7.5 GM/DL (12.0-16.0); Immature Granulocytes % 1.8 %; Immature Granulocytes Absolute 0.13 #; Lymphocytes # 1.8 10*3/uL (1.4-4.0); Lymphocytes % 24.4 % (21.3-54.2); Mean Corpuscular HGB Conc 31.1 GM/DL (32-36); Mean Corpuscular Volume 96.8 FL (87-102); Mean Platelet Volume 9.6 FL (9.6-12.0); Monocytes % 10.1 % (1.7-12.7); NRBC # 0.03 10*3/uL; Neutrophils % 62.2 % (38.7-73.9); Platelet Count 258 T/CUMM (130-400); Red Blood Count 2.49 MC/CUMM (3.8-5.5); Red Cell Distribution Width 15.2 % (9.3-17.3); White Blood Count 7.4 T/CUMM (4-12)
[2021-11-19 15:29] LABS: Alanine Aminotransferase 25 U/L (13-56); Albumin 2.6 G/DL (3.4-5.0); Alkaline Phosphatase 96 U/L (45-117); Aspartate Amino Transferase 16 U/L (0-37); Bilirubin,Total < 0.39 MG/DL (0.20-1.00); Blood Urea Nitrogen 56 MG/DL (7-18); Calcium 8.8 MG/DL (8.5-10.1); Carbon Dioxide 31 MMOL/L (21-32); Estimated Glom Filtration Rate 48 ML/MIN; Glucose 125 MG/DL (74-106); Osmolality,Calculated 289.8 MOS/KG (273-304); Potassium 5.4 MMOL/L (3.5-5.1); Sodium 137 MMOL/L (136-145); Total Protein 6.5 G/DL (6.4-8.2)
[2021-11-19] MEDS ORDERED: SODIUM CHLORIDE 0.9% 1,000 ML IV STA (15:41)
[2021-11-19] MEDS ORDERED: INSULIN REGULAR 100 UNIT/ML IV STA (15:41)
[2021-11-19] MEDS ORDERED: DEXTROSE 50% 25 GM/50 ML VIAL IV STA (15:41)
[2021-11-19] MEDS ORDERED: DEXTROSE 50% 25 GM/50 ML SYRINGE IV ONE (16:55)
[2021-11-19] MEDS ORDERED: ONDANSETRON 4 MG/2 ML VIAL IV PRN (17:38)
[2021-11-19] MEDS ORDERED: GLUCAGON 1 MG VIAL IM PRN (17:38)
[2021-11-19] MEDS ORDERED: DEXTROSE 10% 250 ML BAG IV PRN (17:56)
[2021-11-19] MEDS: SODIUM CHLORIDE 0.9% 1,000 ML IV SCH (18:40)
[2021-11-19] MEDS: INSULIN LISPRO 100 UNIT/ML SUBCUT SCH (23:04)
[2021-11-20] MEDS ORDERED: ZALEPLON 5 MG CAPSULE PO PRN (00:32)
[2021-11-20] MEDS: ACETAMINOPHEN 325 MG TABLET PO PRN ×2 (04:23→11:42)
[2021-11-20 05:48] LABS: Basophils % 0.3 % (0.0-0.8); Eosinophils # 0.1 10*3/uL (0.0-0.87); Eosinophils % 1.3 % (0.00-10.9); Hematocrit 22.9 VOL% (35.7-47.0); Hemoglobin 7.3 GM/DL (12.0-16.0); Immature Granulocytes % 1.5 %; Lymphocytes # 1.4 10*3/uL (1.4-4.0); Mean Corpuscular HGB Conc 31.9 GM/DL (32-36); Mean Corpuscular Volume 95.4 FL (87-102); Mean Platelet Volume 9.6 FL (9.6-12.0); Monocytes % 8.7 % (1.7-12.7); NRBC # 0.04 10*3/uL; Neutrophils % 67.2 % (38.7-73.9); Platelet Count 269 T/CUMM (130-400); Red Cell Distribution Width 15.5 % (9.3-17.3); White Blood Count 6.9 T/CUMM (4-12)
[2021-11-20 06:20] LABS: Folate > 24.00 NG/ML (5.38-24.0); Vitamin B12 570 PG/ML (211-911)
[2021-11-20 06:26] LABS: % Iron Saturation 33.9 % (18-50)
[2021-11-20 06:29] LABS: Alanine Aminotransferase 26 U/L (13-56); Albumin 2.5 G/DL (3.4-5.0); Alkaline Phosphatase 90 U/L (45-117); Aspartate Amino Transferase 13 U/L (0-37); Bilirubin,Total < 0.39 MG/DL (0.20-1.00); Blood Urea Nitrogen 42 MG/DL (7-18); Calcium 9.2 MG/DL (8.5-10.1); Carbon Dioxide 27 MMOL/L (21-32); Estimated Glom Filtration Rate 61 ML/MIN; Glucose 170 MG/DL (74-106); HDL Cholesterol 45 MG/DL (40-60); Osmolality,Calculated 289.7 MOS/KG (273-304); Potassium 5.1 MMOL/L (3.5-5.1); Risk Ratio 2.67; Sodium 138 MMOL/L (136-145); Total Protein 6.5 G/DL (6.4-8.2); Triglycerides 166 MG/DL (2-150); VLDL Cholesterol 33.2 MG/DL
[2021-11-20] MEDS ORDERED: PNEUMOCOCCAL VACCINE (23 VALENT) 0.5 ML VIAL IM ONE (09:00)
[2021-11-20] MEDS ORDERED: PANTOPRAZOLE 40 MG TABLET PO SCH (09:00)
[2021-11-20] MEDS: INSULIN LISPRO 100 UNIT/ML SUBCUT SCH ×4 (09:18→22:52)
[2021-11-20] MEDS: OSELTAMIVIR 6 MG/ML 60 ML/BOTTLE PO SCH ×2 (15:06→22:58)
[2021-11-20] MEDS: SODIUM CHLORIDE 0.9% 1,000 ML IV SCH (15:06)
[2021-11-20] MEDS: carvediloL 12.5 MG TABLET PO SCH (22:52)
[2021-11-21 05:43] LABS: Basophils % 0.3 % (0.0-0.8); Eosinophils # 0.1 10*3/uL (0.0-0.87); Eosinophils % 1.5 % (0.00-10.9); Hematocrit 24.3 VOL% (35.7-47.0); Hemoglobin 7.5 GM/DL (12.0-16.0); Immature Granulocytes % 1.2 %; Immature Granulocytes Absolute 0.07 #; Lymphocytes # 1.6 10*3/uL (1.4-4.0); Lymphocytes % 26.9 % (21.3-54.2); Mean Corpuscular HGB Conc 30.9 GM/DL (32-36); Mean Corpuscular Volume 97.6 FL (87-102); Mean Platelet Volume 9.6 FL (9.6-12.0); Monocytes % 10.7 % (1.7-12.7); NRBC # 0.04 10*3/uL; Neutrophils % 59.4 % (38.7-73.9); Platelet Count 256 T/CUMM (130-400); Red Blood Count 2.49 MC/CUMM (3.8-5.5); Red Cell Distribution Width 15.9 % (9.3-17.3); White Blood Count 6.1 T/CUMM (4-12)
[2021-11-21 05:47] LABS: Calcium 8.9 MG/DL (8.5-10.1); Osmolality,Calculated 291.5 MOS/KG (273-304); Potassium 5.1 MMOL/L (3.5-5.1)
[2021-11-21] MEDS: OSELTAMIVIR 6 MG/ML 60 ML/BOTTLE PO SCH ×2 (09:05→21:50)
[2021-11-21] MEDS: carvediloL 12.5 MG TABLET PO SCH ×2 (09:09→21:49)
[2021-11-21] MEDS: OMEPRAZOLE ODT 20 MG TABLET PEG SCH (09:09)
[2021-11-21] MEDS: INSULIN LISPRO 100 UNIT/ML SUBCUT SCH ×4 (09:26→21:50)
[2021-11-21] MEDS: LOSARTAN 50 MG TABLET PO SCH (12:11)
[2021-11-21] MEDS ORDERED: DEXTROSE 50% 25 GM/50 ML VIAL IV PRN ×2 (12:52→15:11)
[2021-11-22] MEDS ORDERED: ALUMINUM/MAGNES/SIMETH MAX STR 30 ML UDCUP PO PRN (01:00)
[2021-11-22 05:34] LABS: Basophils % 0.5 % (0.0-0.8); Eosinophils # 0.1 10*3/uL (0.0-0.87); Eosinophils % 1.5 % (0.00-10.9); Hematocrit 24.9 VOL% (35.7-47.0); Hemoglobin 7.8 GM/DL (12.0-16.0); Immature Granulocytes % 0.9 %; Immature Granulocytes Absolute 0.06 #; Lymphocytes # 2.1 10*3/uL (1.4-4.0); Lymphocytes % 32.3 % (21.3-54.2); Mean Corpuscular HGB Conc 31.3 GM/DL (32-36); Mean Corpuscular Volume 95.4 FL (87-102); Mean Platelet Volume 9.2 FL (9.6-12.0); Monocytes % 7.5 % (1.7-12.7); NRBC # 0.03 10*3/uL; Neutrophils % 57.3 % (38.7-73.9); Platelet Count 272 T/CUMM (130-400); Red Blood Count 2.61 MC/CUMM (3.8-5.5); Red Cell Distribution Width 16.2 % (9.3-17.3); White Blood Count 6.5 T/CUMM (4-12)
[2021-11-22 05:55] LABS: Calcium 9.4 MG/DL (8.5-10.1); Osmolality,Calculated 279.8 MOS/KG (273-304); Potassium 4.6 MMOL/L (3.5-5.1)
[2021-11-22] MEDS: carvediloL 12.5 MG TABLET PO SCH (10:15)
[2021-11-22] MEDS: OMEPRAZOLE ODT 20 MG TABLET PEG SCH (10:15)
[2021-11-22] MEDS: LOSARTAN 50 MG TABLET PO SCH (10:15)
[2021-11-22] MEDS: OSELTAMIVIR 6 MG/ML 60 ML/BOTTLE PO SCH (10:15)
[2021-11-22] MEDS: INSULIN LISPRO 100 UNIT/ML SUBCUT SCH ×2 (10:16→12:43)
[2021-11-22 11:57] VITALS: BP 152/59
[2021-11-26 12:11] LABS: Hb A 82.5 % (95.8-98.0); Hb A2 2.9 % (2.0-3.3); Hb F 0 % (0.0-0.9); Variant 1 14.6 Hb S % (0.0)
[2021-11-27 09:39] LABS: Hgb Elect Summary Review SEE COMMENTS
[2021-11-27 09:43] LABS: Hemoglobin A1 (Alkaline) 85.1 % (96.5-98.5); Hemoglobin S (Alkaline) 12.7 %
== END 2021-11-22 14:37 ==
LOC: N.ED 10:06 → N.EDINP 10:06 → SUATTDRO 17:38 → N.5E 19:42
PROVIDERS: ADMIT Internal Medicine; ATTEND Internal Medicine

== ENCOUNTER 2022-04-04 08:10 | Inpatient (IN) ==
[2022-04-04 10:20] LABS: Basophils % 0.3 % (0.0-0.8); Eosinophils # 0.1 10*3/uL (0.0-0.87); Eosinophils % 0.4 % (0.00-10.9); Hematocrit 25.5 VOL% (35.7-47.0); Hemoglobin 7.7 GM/DL (12.0-16.0); Immature Granulocytes % 0.4 %; Immature Granulocytes Absolute 0.05 #; Lymphocytes # 2.5 10*3/uL (1.4-4.0); Lymphocytes % 20.4 % (21.3-54.2); Mean Corpuscular HGB Conc 30.2 GM/DL (32-36); Mean Corpuscular Volume 100.8 FL (87-102); Mean Platelet Volume 10.2 FL (9.6-12.0); Monocytes # 0.6 10*3/uL (0.11-0.8); Monocytes % 4.7 % (1.7-12.7); NRBC # 0.04 10*3/uL; Neutrophils % 73.8 % (38.7-73.9); Platelet Count 291 T/CUMM (130-400); Red Blood Count 2.53 MC/CUMM (3.8-5.5); Red Cell Distribution Width 14.8 % (9.3-17.3); White Blood Count 12.3 T/CUMM (4-12)
[2022-04-04] MEDS ORDERED: SODIUM CHLORIDE 0.9% 1,000 ML IV STA ×2 (10:37→12:25)
[2022-04-04 10:40] LABS: Alanine Aminotransferase 16 U/L (13-56); Albumin 2.9 G/DL (3.4-5.0); Alkaline Phosphatase 121 U/L (45-117); Aspartate Amino Transferase 11 U/L (0-37); Bilirubin,Total < 0.39 MG/DL (0.20-1.00); Blood Urea Nitrogen 40 MG/DL (7-18); Calcium 8.6 MG/DL (8.5-10.1); Carbon Dioxide 27 MMOL/L (21-32); Chloride 111 MMOL/L (98-107); Glucose 189 MG/DL (74-106); Osmolality,Calculated 291.5 MOS/KG (273-304); Sodium 139 MMOL/L (136-145); Total Protein 6.4 G/DL (6.4-8.2)
[2022-04-04 11:10] LABS: Potassium 6.4 MMOL/L (3.5-5.1)
[2022-04-04] MEDS ORDERED: cefTRIAXone 1,000 MG in SODIUM CHLORIDE 0.9% 100 ML IV STA (12:25)
[2022-04-04] MEDS ORDERED: INSULIN REGULAR 100 UNIT/ML IV STA (12:26)
[2022-04-04] MEDS ORDERED: DEXTROSE 50% 25 GM/50 ML VIAL IV STA (12:26)
[2022-04-04] MEDS ORDERED: DEXTROSE 50% 25 GM/50 ML SYRINGE IV STA (12:28)
[2022-04-04 13:43] LABS: Bacteria,Urine Many /HPF (Few); RBC,Urine 84 /HPF (0-4)
[2022-04-04 13:44] LABS: Bilirubin,Urine Negative (Negative); Blood, Urine Moderate mg/dL (Negative); Glucose,Urine (UA) Negative (Negative); Ketones,Urine Trace mg/dL (Negative); Nitrite,Urine Negative (Negative); Protein,Urine 100 mg/dL (Negative); Urine Appearance Turbid (Clear); Urine Color Yellow (Yellow); Urine Specific Gravity 1.015 (1.001-1.035); Urine Urobilinogen 0.2 eU/dL (<2.0)
[2022-04-04] MEDS ORDERED: LACTULOSE 20 GM/30 ML UDCUP PO PRN (14:13)
[2022-04-04] MEDS ORDERED: GLUCAGON 1 MG VIAL IM PRN (14:13)
[2022-04-04] MEDS ORDERED: SIMETHICONE CHEW 125 MG TABLET PO PRN (14:13)
[2022-04-04] MEDS ORDERED: ONDANSETRON 4 MG/2 ML VIAL IV PRN (14:13)
[2022-04-04] MEDS ORDERED: DOCUSATE SODIUM 100 MG CAPSULE PO PRN (14:13)
[2022-04-04] MEDS ORDERED: ACETAMINOPHEN 325 MG TABLET PO PRN (14:13)
[2022-04-04] MEDS ORDERED: DEXTROSE 10% 250 ML BAG IV PRN (14:33)
[2022-04-04] MEDS ORDERED: VANCOMYCIN INJ 1,000 MG in SODIUM CHLORIDE 0.9% 250 ML IV SCH (15:30)
[2022-04-04] MEDS: SODIUM CHLORIDE 0.9% 1,000 ML IV SCH (16:03)
[2022-04-04] MEDS: HEPARIN 5,000 UNIT/1 ML VIAL SUBCUT SCH (16:12)
[2022-04-04] MEDS: MEROPENEM 500 MG in SODIUM CHLORIDE 0.9% 100 ML IV SCH (16:12)
[2022-04-04 16:15] LABS: Calcium 8.2 MG/DL (8.5-10.1); Osmolality,Calculated 296.7 MOS/KG (273-304); Potassium 5.8 MMOL/L (3.5-5.1)
[2022-04-04] MEDS ORDERED: SODIUM POLYSTYRENE SULFATE 15 GM/60 ML BOTTLE PO ONE (16:29)
[2022-04-04] MEDS ORDERED: VANCOMYCIN INJ 1,500 MG in SODIUM CHLORIDE 0.9% 500 ML IV PRN (16:41)
[2022-04-04] MEDS: INSULIN LISPRO 100 UNIT/ML SUBCUT SCH ×2 (17:43→22:11)
[2022-04-04] MEDS ORDERED: VANCOMYCIN INJ 1,500 MG in SODIUM CHLORIDE 0.9% 500 ML IV ONE (18:00)
[2022-04-04 20:24] LABS: Calcium 8.4 MG/DL (8.5-10.1); Osmolality,Calculated 303.6 MOS/KG (273-304); Potassium 5.6 MMOL/L (3.5-5.1)
[2022-04-04] MEDS: MEMANTINE 10 MG TABLET PO SCH (22:10)
[2022-04-04] MEDS: BRIMONIDINE/TIMOLOL OPH SOLN 5 ML BOTTLE BOTH EYES SCH ×2 (22:10→22:15)
[2022-04-04] MEDS: ASCORBIC ACID 500 MG TABLET PO SCH (22:11)
[2022-04-05] MEDS: SODIUM CHLORIDE 0.9% 1,000 ML IV SCH ×2 (00:59→06:30)
[2022-04-05] MEDS: MEROPENEM 500 MG in SODIUM CHLORIDE 0.9% 100 ML IV SCH ×2 (03:17→14:39)
[2022-04-05] MEDS: HEPARIN 5,000 UNIT/1 ML VIAL SUBCUT SCH ×2 (03:18→21:42)
[2022-04-05 05:56] LABS: Basophils % 0.4 % (0.0-0.8); Eosinophils # 0.1 10*3/uL (0.0-0.87); Eosinophils % 1.2 % (0.00-10.9); Hematocrit 23.7 VOL% (35.7-47.0); Hemoglobin 7.1 GM/DL (12.0-16.0); Immature Granulocytes % 0.7 %; Immature Granulocytes Absolute 0.05 #; Lymphocytes # 0.8 10*3/uL (1.4-4.0); Mean Corpuscular Volume 100.4 FL (87-102); Mean Platelet Volume 9.7 FL (9.6-12.0); Monocytes # 0.4 10*3/uL (0.11-0.8); Monocytes % 5.5 % (1.7-12.7); Neutrophils % 81.2 % (38.7-73.9); Platelet Count 232 T/CUMM (130-400); Red Blood Count 2.36 MC/CUMM (3.8-5.5); Red Cell Distribution Width 14.7 % (9.3-17.3); White Blood Count 7.3 T/CUMM (4-12)
[2022-04-05 06:29] LABS: Alanine Aminotransferase 15 U/L (13-56); Albumin 2.4 G/DL (3.4-5.0); Alkaline Phosphatase 107 U/L (45-117); Aspartate Amino Transferase 13 U/L (0-37); Bilirubin,Total < 0.39 MG/DL (0.20-1.00); Blood Urea Nitrogen 34 MG/DL (7-18); Calcium 8.5 MG/DL (8.5-10.1); Carbon Dioxide 24 MMOL/L (21-32); Chloride 117 MMOL/L (98-107); Cholesterol 166 MG/DL (50-200); Glucose 222 MG/DL (74-106); HDL Cholesterol 62 MG/DL (40-60); Osmolality,Calculated 306.4 MOS/KG (273-304); Potassium 5.4 MMOL/L (3.5-5.1); Risk Ratio 2.68; Sodium 147 MMOL/L (136-145); Total Protein 6.1 G/DL (6.4-8.2); Triglycerides 179 MG/DL (2-150); VLDL Cholesterol 35.8 MG/DL
[2022-04-05] MEDS: LEVOTHYROXINE 50 MCG TABLET PO SCH (07:14)
[2022-04-05] MEDS: LINACLOTIDE 145 MCG CAPSULE PO SCH (07:16)
[2022-04-05] MEDS: PANTOPRAZOLE 40 MG TABLET PO SCH (08:20)
[2022-04-05] MEDS: FOLIC ACID 1 MG TABLET PO SCH (08:20)
[2022-04-05] MEDS: MULTIVITAMIN (CENTRUM) TABLET PO SCH (08:20)
[2022-04-05] MEDS: ASCORBIC ACID 500 MG TABLET PO SCH ×2 (08:20→21:43)
[2022-04-05] MEDS: INSULIN LISPRO 100 UNIT/ML SUBCUT SCH ×4 (08:20→21:42)
[2022-04-05] MEDS: ESCITALOPRAM 10 MG TABLET PO SCH (08:20)
[2022-04-05] MEDS: FERROUS SULFATE 325 MG TABLET PO SCH (08:21)
[2022-04-05] MEDS: CHOLECALCIFEROL 1,000 UNIT TABLET PO SCH (08:21)
[2022-04-05] MEDS: MEMANTINE 10 MG TABLET PO SCH ×2 (08:21→21:42)
[2022-04-05] MEDS: ZINC GLUCONATE 50 MG TABLET PO SCH (08:21)
[2022-04-05] MEDS: ASPIRIN EC 81 MG TABLET PO SCH (08:21)
[2022-04-05] MEDS: NON-FORMULARY MEDICATION (Vortioxetine [Trintellix] 20 mg Tablet) PO SCH (09:11)
[2022-04-05] MEDS: BRIMONIDINE/TIMOLOL OPH SOLN 5 ML BOTTLE BOTH EYES SCH ×2 (09:11→20:18)
[2022-04-05] MEDS: carvediloL 12.5 MG TABLET PO SCH (16:23)
[2022-04-05 18:49] LABS: Arterial Base Excess iSTAT -2 MMOL/L (-2.5-2.5); Arterial Bicarbonate iSTAT 24.9 MMOL/L (20-26); Arterial O2 Saturation iSTAT 71 % (95-100); Arterial PCO2 iSTAT 52 MM HG (35-48); Arterial PO2 iSTAT 42 MM HG (80-95); Arterial Total CO2 iSTAT 26 MMO/L (23-27); Arterial pH iSTAT 7.284 (7.35-7.45)
[2022-04-05 19:13] LABS: Basophils % 0.2 % (0.0-0.8); Eosinophils # 0.2 10*3/uL (0.0-0.87); Eosinophils % 1.7 % (0.00-10.9); Hematocrit 27.7 VOL% (35.7-47.0); Hemoglobin 8.2 GM/DL (12.0-16.0); Immature Granulocytes % 0.7 %; Immature Granulocytes Absolute 0.07 #; Lymphocytes # 1.2 10*3/uL (1.4-4.0); Lymphocytes % 13.2 % (21.3-54.2); Mean Corpuscular HGB Conc 29.6 GM/DL (32-36); Mean Corpuscular Volume 101.5 FL (87-102); Mean Platelet Volume 9.2 FL (9.6-12.0); Monocytes # 0.5 10*3/uL (0.11-0.8); Monocytes % 5.1 % (1.7-12.7); NRBC # 0.02 10*3/uL; Neutrophils % 79.1 % (38.7-73.9); Platelet Count 252 T/CUMM (130-400); Red Blood Count 2.73 MC/CUMM (3.8-5.5); Red Cell Distribution Width 15.1 % (9.3-17.3); White Blood Count 9.4 T/CUMM (4-12)
[2022-04-05 19:32] LABS: Alanine Aminotransferase 16 U/L (13-56); Alkaline Phosphatase 117 U/L (45-117); Aspartate Amino Transferase 12 U/L (0-37); Bilirubin,Total < 0.39 MG/DL (0.20-1.00); Blood Urea Nitrogen 26 MG/DL (7-18); Calcium 9.3 MG/DL (8.5-10.1); Carbon Dioxide 25 MMOL/L (21-32); Chloride 114 MMOL/L (98-107); Glucose 190 MG/DL (74-106); Osmolality,Calculated 295.8 MOS/KG (273-304); Potassium 4.6 MMOL/L (3.5-5.1); Sodium 144 MMOL/L (136-145); Total Protein 7.1 G/DL (6.4-8.2)
[2022-04-05] MEDS ORDERED: METOPROLOL TARTRATE 5 MG/5 ML VIAL IV ONE (19:53)
[2022-04-05 20:06] LABS: Arterial Base Excess iSTAT -1 MMOL/L (-2.5-2.5); Arterial Bicarbonate iSTAT 24.9 MMOL/L (20-26); Arterial O2 Saturation iSTAT 99 % (95-100); Arterial PCO2 iSTAT 45 MM HG (35-48); Arterial PO2 iSTAT 157 MM HG (80-95); Arterial Total CO2 iSTAT 26 MMO/L (23-27)
[2022-04-06] MEDS: MEROPENEM 500 MG in SODIUM CHLORIDE 0.9% 100 ML IV SCH (02:18)
[2022-04-06 05:26] LABS: Calcium 8.8 MG/DL (8.5-10.1); Osmolality,Calculated 298.7 MOS/KG (273-304); Potassium 4.6 MMOL/L (3.5-5.1)
[2022-04-06] MEDS: LEVOTHYROXINE 50 MCG TABLET PO SCH (05:58)
[2022-04-06 06:15] LABS: Basophils % 0.4 % (0.0-0.8); Eosinophils # 0.2 10*3/uL (0.0-0.87); Eosinophils % 2.5 % (0.00-10.9); Hemoglobin 7.3 GM/DL (12.0-16.0); Immature Granulocytes % 0.5 %; Immature Granulocytes Absolute 0.04 #; Lymphocytes # 1.2 10*3/uL (1.4-4.0); Lymphocytes % 15.8 % (21.3-54.2); Mean Corpuscular HGB Conc 30.4 GM/DL (32-36); Mean Corpuscular Volume 100.4 FL (87-102); Mean Platelet Volume 9.7 FL (9.6-12.0); Monocytes # 0.5 10*3/uL (0.11-0.8); Monocytes % 7.1 % (1.7-12.7); Neutrophils % 73.7 % (38.7-73.9); Platelet Count 216 T/CUMM (130-400); Red Blood Count 2.39 MC/CUMM (3.8-5.5); Red Cell Distribution Width 14.8 % (9.3-17.3); White Blood Count 7.5 T/CUMM (4-12)
[2022-04-06] MEDS: INSULIN LISPRO 100 UNIT/ML SUBCUT SCH ×4 (08:15→20:36)
[2022-04-06] MEDS: HEPARIN 5,000 UNIT/1 ML VIAL SUBCUT SCH ×2 (08:15→20:36)
[2022-04-06] MEDS: MULTIVITAMIN (CENTRUM) TABLET PO SCH (08:15)
[2022-04-06] MEDS: ASPIRIN EC 81 MG TABLET PO SCH (08:15)
[2022-04-06] MEDS: FERROUS SULFATE 325 MG TABLET PO SCH (08:15)
[2022-04-06] MEDS: CHOLECALCIFEROL 1,000 UNIT TABLET PO SCH (08:16)
[2022-04-06] MEDS: FOLIC ACID 1 MG TABLET PO SCH (08:16)
[2022-04-06] MEDS: ASCORBIC ACID 500 MG TABLET PO SCH ×2 (08:16→20:37)
[2022-04-06] MEDS: MEMANTINE 10 MG TABLET PO SCH ×2 (08:16→20:36)
[2022-04-06] MEDS: PANTOPRAZOLE 40 MG TABLET PO SCH (08:16)
[2022-04-06] MEDS: carvediloL 12.5 MG TABLET PO SCH ×2 (08:16→16:06)
[2022-04-06] MEDS: BRIMONIDINE/TIMOLOL OPH SOLN 5 ML BOTTLE BOTH EYES SCH ×2 (08:16→20:36)
[2022-04-06] MEDS: ESCITALOPRAM 10 MG TABLET PO SCH (08:16)
[2022-04-06] MEDS: ZINC GLUCONATE 50 MG TABLET PO SCH (08:16)
[2022-04-06] MEDS: NON-FORMULARY MEDICATION (Vortioxetine [Trintellix] 20 mg Tablet) PO SCH (08:27)
[2022-04-06] MEDS: LINACLOTIDE 145 MCG CAPSULE PO SCH (09:31)
[2022-04-06] MEDS: INSULIN GLARGINE 100 UNIT/ML SUBCUT SCH (11:35)
[2022-04-06] MEDS ORDERED: FUROSEMIDE 20 MG/2 ML VIAL IV ONE (14:54)
[2022-04-06 15:07] LABS: Basophils % 0.2 % (0.0-0.8); Eosinophils # 0.1 10*3/uL (0.0-0.87); Eosinophils % 1.2 % (0.00-10.9); Hematocrit 24.7 VOL% (35.7-47.0); Hemoglobin 7.6 GM/DL (12.0-16.0); Immature Granulocytes % 0.7 %; Immature Granulocytes Absolute 0.07 #; Lymphocytes # 0.9 10*3/uL (1.4-4.0); Lymphocytes % 9.4 % (21.3-54.2); Mean Corpuscular HGB Conc 30.8 GM/DL (32-36); Mean Corpuscular Volume 98.8 FL (87-102); Mean Platelet Volume 9.6 FL (9.6-12.0); Monocytes # 0.6 10*3/uL (0.11-0.8); Monocytes % 6.3 % (1.7-12.7); NRBC # 0.02 10*3/uL; Neutrophils % 82.2 % (38.7-73.9); Platelet Count 238 T/CUMM (130-400); Red Cell Distribution Width 14.7 % (9.3-17.3); White Blood Count 9.4 T/CUMM (4-12)
[2022-04-06] MEDS: CEFEPIME 1,000 MG in SODIUM CHLORIDE 0.9% 100 ML IV SCH ×2 (15:12→23:40)
[2022-04-06] MEDS ORDERED: cloNIDine 0.1 MG TABLET PO ONE ×2 (16:28→18:12)
[2022-04-06] MEDS: DONEPEZIL 10 MG TABLET PO SCH (20:35)
[2022-04-06] MEDS: GABAPENTIN 100 MG CAPSULE PO SCH (20:35)
[2022-04-06] MEDS: DIVALPROEX ER 250 MG TABLET PO SCH (20:36)
[2022-04-06] MEDS: cloNIDine 0.1 MG TABLET PO SCH (20:36)
[2022-04-07] MEDS: LEVOTHYROXINE 50 MCG TABLET PO SCH (05:33)
[2022-04-07 06:03] LABS: Basophils % 0.4 % (0.0-0.8); Eosinophils # 0.1 10*3/uL (0.0-0.87); Eosinophils % 1.2 % (0.00-10.9); Hematocrit 21.5 VOL% (35.7-47.0); Hemoglobin 6.6 GM/DL (12.0-16.0); Immature Granulocytes % 0.9 %; Immature Granulocytes Absolute 0.07 #; Lymphocytes % 24.9 % (21.3-54.2); Mean Corpuscular HGB Conc 30.7 GM/DL (32-36); Monocytes # 0.6 10*3/uL (0.11-0.8); Monocytes % 6.8 % (1.7-12.7); NRBC # 0.03 10*3/uL; Neutrophils % 65.8 % (38.7-73.9); Platelet Count 235 T/CUMM (130-400); Red Blood Count 2.15 MC/CUMM (3.8-5.5); Red Cell Distribution Width 14.5 % (9.3-17.3); White Blood Count 8.1 T/CUMM (4-12)
[2022-04-07 06:08] LABS: Basophils % 0.4 % (0.0-0.8); Eosinophils # 0.1 10*3/uL (0.0-0.87); Eosinophils % 1.5 % (0.00-10.9); Hematocrit 21.1 VOL% (35.7-47.0); Hemoglobin 6.5 GM/DL (12.0-16.0); Immature Granulocytes % 0.7 %; Immature Granulocytes Absolute 0.06 #; Lymphocytes # 1.9 10*3/uL (1.4-4.0); Lymphocytes % 23.8 % (21.3-54.2); Mean Corpuscular HGB Conc 30.8 GM/DL (32-36); Mean Corpuscular Volume 99.5 FL (87-102); Mean Platelet Volume 10.2 FL (9.6-12.0); Monocytes # 0.6 10*3/uL (0.11-0.8); Monocytes % 7.7 % (1.7-12.7); NRBC # 0.02 10*3/uL; Neutrophils % 65.9 % (38.7-73.9); Platelet Count 235 T/CUMM (130-400); Red Blood Count 2.12 MC/CUMM (3.8-5.5); Red Cell Distribution Width 14.6 % (9.3-17.3); White Blood Count 8.1 T/CUMM (4-12)
[2022-04-07 06:23] LABS: Calcium 9.3 MG/DL (8.5-10.1); Osmolality,Calculated 289.1 MOS/KG (273-304); Potassium 4.4 MMOL/L (3.5-5.1)
[2022-04-07 06:36] LABS: % Iron Saturation 18.6 % (18-50); Ferritin 960.9 ng/mL (8-252)
[2022-04-07 06:46] LABS: Folate > 24.00 NG/ML (5.38-24.0); Vitamin B12 766 PG/ML (211-911)
[2022-04-07 07:45] LABS: Sedimentation Rate-Westergren 125 MM/HR (0-30)
[2022-04-07] MEDS: CEFEPIME 1,000 MG in SODIUM CHLORIDE 0.9% 100 ML IV SCH ×2 (09:00→15:45)
[2022-04-07] MEDS ORDERED: SODIUM CHLORIDE 0.9% 1,000 ML IV PRN (09:13)
[2022-04-07] MEDS ORDERED: FUROSEMIDE 40 MG/4 ML VIAL IV ONE (09:15)
[2022-04-07] MEDS: INSULIN LISPRO 100 UNIT/ML SUBCUT SCH ×4 (09:16→21:57)
[2022-04-07] MEDS: LINACLOTIDE 145 MCG CAPSULE PO SCH (09:17)
[2022-04-07] MEDS: carvediloL 12.5 MG TABLET PO SCH ×2 (09:19→16:25)
[2022-04-07] MEDS: cloNIDine 0.1 MG TABLET PO SCH ×2 (09:20→21:54)
[2022-04-07] MEDS: DIVALPROEX ER 250 MG TABLET PO SCH ×2 (09:20→21:54)
[2022-04-07] MEDS: MULTIVITAMIN (CENTRUM) TABLET PO SCH (09:20)
[2022-04-07] MEDS: ASPIRIN EC 81 MG TABLET PO SCH (09:20)
[2022-04-07] MEDS: INSULIN GLARGINE 100 UNIT/ML SUBCUT SCH (09:21)
[2022-04-07] MEDS: HEPARIN 5,000 UNIT/1 ML VIAL SUBCUT SCH ×2 (09:21→21:57)
[2022-04-07] MEDS: FOLIC ACID 1 MG TABLET PO SCH (09:21)
[2022-04-07] MEDS: FERROUS SULFATE 325 MG TABLET PO SCH (09:21)
[2022-04-07] MEDS: GABAPENTIN 100 MG CAPSULE PO SCH ×2 (09:22→21:53)
[2022-04-07] MEDS: ESCITALOPRAM 10 MG TABLET PO SCH (09:22)
[2022-04-07] MEDS: CHOLECALCIFEROL 1,000 UNIT TABLET PO SCH (09:22)
[2022-04-07] MEDS: PANTOPRAZOLE 40 MG TABLET PO SCH (09:22)
[2022-04-07] MEDS: ASCORBIC ACID 500 MG TABLET PO SCH ×2 (09:22→21:54)
[2022-04-07] MEDS: MEMANTINE 10 MG TABLET PO SCH ×2 (09:22→21:54)
[2022-04-07] MEDS: NON-FORMULARY MEDICATION (Vortioxetine [Trintellix] 20 mg Tablet) PO SCH (09:23)
[2022-04-07] MEDS: ZINC GLUCONATE 50 MG TABLET PO SCH (09:23)
[2022-04-07] MEDS: BRIMONIDINE/TIMOLOL OPH SOLN 5 ML BOTTLE BOTH EYES SCH ×2 (09:24→23:38)
[2022-04-07] MEDS ORDERED: FUROSEMIDE 20 MG/2 ML VIAL IV ONE (15:28)
[2022-04-07] MEDS: DONEPEZIL 10 MG TABLET PO SCH (21:53)
[2022-04-07 22:30] LABS: Hemoglobin 10.2 GM/DL (12.0-16.0)
[2022-04-08] MEDS: CEFEPIME 1,000 MG in SODIUM CHLORIDE 0.9% 100 ML IV SCH ×2 (00:04→10:11)
[2022-04-08] MEDS: LEVOTHYROXINE 50 MCG TABLET PO SCH (05:59)
[2022-04-08 06:16] LABS: Basophils % 0.4 % (0.0-0.8); Eosinophils # 0.3 10*3/uL (0.0-0.87); Eosinophils % 3.1 % (0.00-10.9); Hematocrit 30.9 VOL% (35.7-47.0); Hemoglobin 9.8 GM/DL (12.0-16.0); Immature Granulocytes Absolute 0.09 #; Lymphocytes # 2.2 10*3/uL (1.4-4.0); Lymphocytes % 24.8 % (21.3-54.2); Mean Corpuscular HGB Conc 31.7 GM/DL (32-36); Mean Corpuscular Volume 90.6 FL (87-102); Mean Platelet Volume 10.3 FL (9.6-12.0); Monocytes # 0.8 10*3/uL (0.11-0.8); Monocytes % 8.9 % (1.7-12.7); NRBC # 0.02 10*3/uL; Neutrophils % 61.8 % (38.7-73.9); Platelet Count 241 T/CUMM (130-400); Red Blood Count 3.41 MC/CUMM (3.8-5.5); Red Cell Distribution Width 17.9 % (9.3-17.3); White Blood Count 8.9 T/CUMM (4-12)
[2022-04-08 06:37] LABS: Calcium 9.2 MG/DL (8.5-10.1); Osmolality,Calculated 295.8 MOS/KG (273-304); Potassium 4.2 MMOL/L (3.5-5.1)
[2022-04-08] MEDS ORDERED: MAGNESIUM SULF RIDER 4 GM/100 ML PREMIX IV PRN (08:18)
[2022-04-08] MEDS ORDERED: MAGNESIUM SULF RIDER 2 GM/50 ML PREMIX IV PRN (08:18)
[2022-04-08 10:03] LABS: Hemoglobin A1 (Alkaline) 65.9 % (96.5-98.5); Hemoglobin A2 (Alkaline) 2.3 % (1.5-3.5)
[2022-04-08] MEDS: HEPARIN 5,000 UNIT/1 ML VIAL SUBCUT SCH (10:09)
[2022-04-08] MEDS: LINACLOTIDE 145 MCG CAPSULE PO SCH (10:09)
[2022-04-08] MEDS: ZINC GLUCONATE 50 MG TABLET PO SCH (10:10)
[2022-04-08] MEDS: MULTIVITAMIN (CENTRUM) TABLET PO SCH (10:10)
[2022-04-08] MEDS: ASCORBIC ACID 500 MG TABLET PO SCH (10:10)
[2022-04-08] MEDS: FERROUS SULFATE 325 MG TABLET PO SCH (10:10)
[2022-04-08] MEDS: MEMANTINE 10 MG TABLET PO SCH (10:10)
[2022-04-08] MEDS: ESCITALOPRAM 10 MG TABLET PO SCH (10:10)
[2022-04-08] MEDS: cloNIDine 0.1 MG TABLET PO SCH (10:10)
[2022-04-08] MEDS: GABAPENTIN 100 MG CAPSULE PO SCH (10:10)
[2022-04-08] MEDS: FOLIC ACID 1 MG TABLET PO SCH (10:10)
[2022-04-08] MEDS: ASPIRIN EC 81 MG TABLET PO SCH (10:10)
[2022-04-08] MEDS: carvediloL 12.5 MG TABLET PO SCH ×2 (10:11→18:05)
[2022-04-08] MEDS: DIVALPROEX ER 250 MG TABLET PO SCH (10:11)
[2022-04-08] MEDS: PANTOPRAZOLE 40 MG TABLET PO SCH (10:11)
[2022-04-08] MEDS: CHOLECALCIFEROL 1,000 UNIT TABLET PO SCH (10:11)
[2022-04-08] MEDS: INSULIN LISPRO 100 UNIT/ML SUBCUT SCH ×3 (10:12→17:57)
[2022-04-08] MEDS: INSULIN GLARGINE 100 UNIT/ML SUBCUT SCH (10:12)
[2022-04-08] MEDS: NON-FORMULARY MEDICATION (Vortioxetine [Trintellix] 20 mg Tablet) PO SCH (10:13)
[2022-04-08] MEDS: BRIMONIDINE/TIMOLOL OPH SOLN 5 ML BOTTLE BOTH EYES SCH (10:14)
[2022-04-08 10:18] LABS: Hemoglobin S (Alkaline) 31.8 %
[2022-04-08] MEDS ORDERED: GENTAMICIN INJ 360 MG in SODIUM CHLORIDE 0.9% 100 ML IV SCH (15:00)
[2022-04-08 17:05] VITALS: BP 148/77
== END 2022-04-08 17:56 | disposition home health service (06) | DRG 682 ==
LOC: N.ED 08:10 → SUATTDRO 14:13 → N.EDINP 14:13 → N.5E 16:08 → N.CC 04-05 18:54 → N.5E 04-06 22:14
PROVIDERS: ADMIT Internal Medicine; ATTEND Internal Medicine

== ENCOUNTER 2022-09-28 12:48 | Inpatient (IN) ==
[2022-09-28] MEDS ORDERED: SODIUM CHLORIDE 0.9% 1,000 ML IV STA (13:55)
[2022-09-28 14:22] LABS: Basophils # 0.1 10*3/uL (0.0-0.2); Basophils % 0.4 % (0.0-0.8); Eosinophils # 0.1 10*3/uL (0.0-0.87); Eosinophils % 0.5 % (0.00-10.9); Hematocrit 25.8 VOL% (35.7-47.0); Hemoglobin 7.8 GM/DL (12.0-16.0); Immature Granulocytes % 0.3 %; Immature Granulocytes Absolute 0.04 #; Lymphocytes % 17.5 % (21.3-54.2); Mean Corpuscular HGB Conc 30.2 GM/DL (32-36); Mean Corpuscular Volume 102.8 FL (87-102); Monocytes # 0.8 10*3/uL (0.11-0.8); Monocytes % 6.8 % (1.7-12.7); NRBC # 0.02 10*3/uL; Neutrophils % 74.5 % (38.7-73.9); Platelet Count 219 T/CUMM (130-400); Red Blood Count 2.51 MC/CUMM (3.8-5.5); Red Cell Distribution Width 15.3 % (9.3-17.3); White Blood Count 11.5 T/CUMM (4-12)
[2022-09-28 14:37] LABS: Bilirubin,Urine Negative (Negative); Glucose,Urine (UA) Negative (Negative); Ketones,Urine Negative (Negative); Nitrite,Urine Positive (Negative); Protein,Urine 100 mg/dL (Negative); Urine Appearance Cloudy (Clear); Urine Color Yellow (Yellow)
[2022-09-28 14:38] LABS: Blood, Urine Moderate mg/dL (Negative); Urine Urobilinogen 0.2 eU/dL (<2.0)
[2022-09-28 14:42] LABS: Alanine Aminotransferase 29 U/L (13-56); Albumin 3.2 G/DL (3.4-5.0); Alkaline Phosphatase 154 U/L (45-117); Aspartate Amino Transferase 13 U/L (0-37); Bilirubin,Total < 0.39 MG/DL (0.20-1.00); Blood Urea Nitrogen 38 MG/DL (7-18); Calcium 8.7 MG/DL (8.5-10.1); Carbon Dioxide 25 MMOL/L (21-32); Chloride 111 MMOL/L (98-107); Glucose 228 MG/DL (74-106); Osmolality,Calculated 296.3 MOS/KG (273-304); Sodium 141 MMOL/L (136-145); Total Protein 7.2 G/DL (6.4-8.2)
[2022-09-28 14:44] LABS: Bacteria,Urine Many /HPF (Few); RBC,Urine 54 /HPF (0-4); Squamous Epithelial Cell,Urine Occasional /HPF (0-10)
[2022-09-28] MEDS ORDERED: DEXTROSE 50% 25 GM/50 ML VIAL IV STA (15:06)
[2022-09-28] MEDS ORDERED: INSULIN REGULAR 100 UNIT/ML IV ONE (15:06)
[2022-09-28] MEDS ORDERED: SODIUM ZIRCONIUM CYCLOSILICATE 10 GM PACK PO ONE (15:08)
[2022-09-28] MEDS ORDERED: cefTRIAXone 1,000 MG in SODIUM CHLORIDE 0.9% 100 ML IV STA (15:19)
[2022-09-28] MEDS ORDERED: DEXTROSE 50% 25 GM/50 ML SYRINGE IV ONE (15:30)
[2022-09-28] MEDS ORDERED: GABAPENTIN 100 MG CAPSULE PO PRN (15:47)
[2022-09-28] MEDS ORDERED: ACETAMINOPHEN 325 MG TABLET PO PRN (16:22)
[2022-09-28] MEDS ORDERED: DEXTROSE 10% 250 ML BAG IV PRN (16:22)
[2022-09-28] MEDS ORDERED: hydrALAZINE 20 MG/1 ML VIAL IV PRN (16:22)
[2022-09-28] MEDS ORDERED: GLUCAGON 1 MG VIAL IM PRN (16:22)
[2022-09-28] MEDS ORDERED: ONDANSETRON 4 MG/2 ML VIAL IV PRN (16:22)
[2022-09-28] MEDS: amLODIPine 10 MG TABLET PO SCH (18:29)
[2022-09-28] MEDS: INSULIN LISPRO 100 UNIT/ML SUBCUT SCH ×2 (18:59→22:12)
[2022-09-28] MEDS: carvediloL 12.5 MG TABLET PO SCH (21:57)
[2022-09-28] MEDS: DONEPEZIL 10 MG TABLET PO SCH (21:57)
[2022-09-28] MEDS: SODIUM ZIRCONIUM CYCLOSILICATE 10 GM PACK PO SCH (21:57)
[2022-09-28] MEDS: BRIMONIDINE/TIMOLOL OPH SOLN 5 ML BOTTLE BOTH EYES SCH (21:58)
[2022-09-28] MEDS: DIVALPROEX ER 250 MG TABLET PO SCH (21:58)
[2022-09-28] MEDS: ERTAPENEM 500 MG in SODIUM CHLORIDE 0.9% 100 ML IV SCH (22:00)
[2022-09-28] MEDS ORDERED: ZALEPLON 5 MG CAPSULE PO ONE (22:47)
[2022-09-29 05:23] LABS: Basophils % 0.2 % (0.0-0.8); Eosinophils # 0.1 10*3/uL (0.0-0.87); Eosinophils % 1.2 % (0.00-10.9); Hematocrit 22.2 VOL% (35.7-47.0); Hemoglobin 6.6 GM/DL (12.0-16.0); Immature Granulocytes % 0.6 %; Immature Granulocytes Absolute 0.05 #; Lymphocytes # 2.2 10*3/uL (1.4-4.0); Lymphocytes % 26.5 % (21.3-54.2); Mean Corpuscular HGB Conc 29.7 GM/DL (32-36); Mean Corpuscular Volume 102.8 FL (87-102); Mean Platelet Volume 10.1 FL (9.6-12.0); Monocytes # 0.6 10*3/uL (0.11-0.8); Monocytes % 7.4 % (1.7-12.7); NRBC # 0.02 10*3/uL; Neutrophils % 64.1 % (38.7-73.9); Platelet Count 195 T/CUMM (130-400); Red Blood Count 2.16 MC/CUMM (3.8-5.5); Red Cell Distribution Width 15.3 % (9.3-17.3); White Blood Count 8.4 T/CUMM (4-12)
[2022-09-29 05:41] LABS: Calcium 8.3 MG/DL (8.5-10.1); Osmolality,Calculated 301.6 MOS/KG (273-304); Potassium 4.7 MMOL/L (3.5-5.1)
[2022-09-29 05:47] LABS: Folate 21.93 NG/ML (5.38-24.0)
[2022-09-29 05:53] LABS: % Iron Saturation 16.6 % (18-50); Ferritin 892.8 ng/mL (8-252)
[2022-09-29] MEDS: LEVOTHYROXINE 50 MCG TABLET PO SCH (05:54)
[2022-09-29] MEDS ORDERED: PANTOPRAZOLE 40 MG TABLET PO SCH (09:00)
[2022-09-29] MEDS ORDERED: SODIUM CHLORIDE 0.9% 1,000 ML IV PRN (09:32)
[2022-09-29 09:58] LABS: Arterial Base Excess iSTAT -2 MMOL/L (-2.5-2.5); Arterial Bicarbonate iSTAT 24.4 MMOL/L (20-26); Arterial O2 Saturation iSTAT 87 % (95-100); Arterial PCO2 iSTAT 50 MM HG (35-48); Arterial PO2 iSTAT 59 MM HG (80-95); Arterial Total CO2 iSTAT 26 MMO/L (23-27); Arterial pH iSTAT 7.301 (7.35-7.45)
[2022-09-29] MEDS: DIVALPROEX ER 250 MG TABLET PO SCH ×2 (10:02→21:28)
[2022-09-29] MEDS: LINACLOTIDE 145 MCG CAPSULE PO SCH (10:03)
[2022-09-29] MEDS: carvediloL 12.5 MG TABLET PO SCH ×2 (10:03→21:28)
[2022-09-29] MEDS: ESCITALOPRAM 10 MG TABLET PO SCH (10:03)
[2022-09-29] MEDS: amLODIPine 10 MG TABLET PO SCH (10:03)
[2022-09-29] MEDS: FERROUS SULFATE 325 MG TABLET PO SCH (10:03)
[2022-09-29] MEDS: ZINC GLUCONATE 50 MG TABLET PO SCH (10:03)
[2022-09-29] MEDS: INSULIN LISPRO 100 UNIT/ML SUBCUT SCH ×4 (10:04→21:28)
[2022-09-29] MEDS: ASPIRIN EC 81 MG TABLET PO SCH (10:04)
[2022-09-29] MEDS: SODIUM ZIRCONIUM CYCLOSILICATE 10 GM PACK PO SCH ×3 (10:05→21:28)
[2022-09-29] MEDS: BRIMONIDINE/TIMOLOL OPH SOLN 5 ML BOTTLE BOTH EYES SCH ×3 (10:05→23:16)
[2022-09-29 10:55] LABS: PT Patient Result 10.6 SECS (10.1-12.1); Partial Thromboplastin Time 30.2 SECS (23.7-32.9)
[2022-09-29 17:11] LABS: Arterial Base Excess iSTAT -3 MMOL/L (-2.5-2.5); Arterial Bicarbonate iSTAT 23.7 MMOL/L (20-26); Arterial O2 Saturation iSTAT 89 % (95-100); Arterial PCO2 iSTAT 49 MM HG (35-48); Arterial PO2 iSTAT 64 MM HG (80-95); Arterial Total CO2 iSTAT 25 MMO/L (23-27); Arterial pH iSTAT 7.294 (7.35-7.45)
[2022-09-29 18:25] LABS: Hematocrit 26.5 VOL% (35.7-47.0)
[2022-09-29 18:29] LABS: Hemoglobin 8.2 GM/DL (12.0-16.0)
[2022-09-29] MEDS: ERTAPENEM 500 MG in SODIUM CHLORIDE 0.9% 100 ML IV SCH (21:27)
[2022-09-29] MEDS: DONEPEZIL 10 MG TABLET PO SCH (21:28)
[2022-09-29 22:06] LABS: Arterial Base Excess iSTAT 0 MMOL/L (-2.5-2.5); Arterial Bicarbonate iSTAT 25.5 MMOL/L (20-26); Arterial O2 Saturation iSTAT 94 % (95-100); Arterial PCO2 iSTAT 47 MM HG (35-48); Arterial PO2 iSTAT 76 MM HG (80-95); Arterial Total CO2 iSTAT 27 MMO/L (23-27); Arterial pH iSTAT 7.341 (7.35-7.45)
[2022-09-30 05:38] LABS: Basophils % 0.2 % (0.0-0.8); Eosinophils # 0.2 10*3/uL (0.0-0.87); Eosinophils % 1.6 % (0.00-10.9); Hematocrit 26.7 VOL% (35.7-47.0); Hemoglobin 8.3 GM/DL (12.0-16.0); Immature Granulocytes % 1.3 %; Immature Granulocytes Absolute 0.12 #; Lymphocytes # 1.8 10*3/uL (1.4-4.0); Lymphocytes % 19.5 % (21.3-54.2); Mean Corpuscular HGB Conc 31.1 GM/DL (32-36); Mean Platelet Volume 10.4 FL (9.6-12.0); Monocytes # 0.7 10*3/uL (0.11-0.8); Monocytes % 7.5 % (1.7-12.7); NRBC # 0.02 10*3/uL; Neutrophils % 69.9 % (38.7-73.9); Platelet Count 200 T/CUMM (130-400); Red Blood Count 2.78 MC/CUMM (3.8-5.5); Red Cell Distribution Width 15.9 % (9.3-17.3); White Blood Count 9.2 T/CUMM (4-12)
[2022-09-30 05:59] LABS: Calcium 9.1 MG/DL (8.5-10.1); Osmolality,Calculated 297.7 MOS/KG (273-304); Potassium 4.2 MMOL/L (3.5-5.1)
[2022-09-30 06:03] LABS: Folate > 24.00 NG/ML (5.38-24.0); Vitamin B12 858 PG/ML (211-911)
[2022-09-30] MEDS: LEVOTHYROXINE 50 MCG TABLET PO SCH (07:12)
[2022-09-30] MEDS: LINACLOTIDE 145 MCG CAPSULE PO SCH (07:14)
[2022-09-30] MEDS: ZINC GLUCONATE 50 MG TABLET PO SCH (09:46)
[2022-09-30] MEDS: DIVALPROEX ER 250 MG TABLET PO SCH ×2 (09:46→20:55)
[2022-09-30] MEDS: ASPIRIN EC 81 MG TABLET PO SCH (09:46)
[2022-09-30] MEDS: SODIUM ZIRCONIUM CYCLOSILICATE 10 GM PACK PO SCH ×2 (09:46→15:52)
[2022-09-30] MEDS: carvediloL 12.5 MG TABLET PO SCH ×2 (09:47→20:55)
[2022-09-30] MEDS: FERROUS SULFATE 325 MG TABLET PO SCH (09:47)
[2022-09-30] MEDS: amLODIPine 10 MG TABLET PO SCH (09:47)
[2022-09-30] MEDS: BRIMONIDINE/TIMOLOL OPH SOLN 5 ML BOTTLE BOTH EYES SCH ×3 (09:47→21:06)
[2022-09-30] MEDS: INSULIN LISPRO 100 UNIT/ML SUBCUT SCH ×4 (09:48→20:55)
[2022-09-30] MEDS: ESCITALOPRAM 10 MG TABLET PO SCH (09:50)
[2022-09-30] MEDS: ERTAPENEM 500 MG in SODIUM CHLORIDE 0.9% 100 ML IV SCH (20:54)
[2022-09-30] MEDS: DONEPEZIL 10 MG TABLET PO SCH (20:55)
[2022-10-01] MEDS: LEVOTHYROXINE 50 MCG TABLET PO SCH (06:22)
[2022-10-01] MEDS: BRIMONIDINE/TIMOLOL OPH SOLN 5 ML BOTTLE BOTH EYES SCH (09:33)
[2022-10-01] MEDS: LINACLOTIDE 145 MCG CAPSULE PO SCH (09:33)
[2022-10-01] MEDS: amLODIPine 10 MG TABLET PO SCH (09:40)
[2022-10-01] MEDS: ESCITALOPRAM 10 MG TABLET PO SCH (09:40)
[2022-10-01] MEDS: carvediloL 12.5 MG TABLET PO SCH (09:40)
[2022-10-01] MEDS: INSULIN LISPRO 100 UNIT/ML SUBCUT SCH ×2 (09:40→13:40)
[2022-10-01] MEDS: ZINC GLUCONATE 50 MG TABLET PO SCH (09:40)
[2022-10-01] MEDS: DIVALPROEX ER 250 MG TABLET PO SCH (09:40)
[2022-10-01] MEDS: ASPIRIN EC 81 MG TABLET PO SCH (09:40)
[2022-10-01] MEDS: FERROUS SULFATE 325 MG TABLET PO SCH (09:40)
[2022-10-01 12:01] VITALS: BP 158/70
== END 2022-10-01 14:50 | disposition home health service (06) | DRG 682 ==
LOC: N.ED 12:48 → SUATTDRO 16:22 → N.EDINP 16:22 → N.TELES 18:35
PROVIDERS: ADMIT Family Medicine; ATTEND Internal Medicine